=== PATIENT | female | born 1930 | race Caucasian/White ===

== ENCOUNTER 2016-11-08 16:03 | Emergency (ER) | payer OTHER ==
[~2016-11-08] VITALS: Ht 167.6 cm; Wt 72.4 kg
[~2016-11-08 16:03] MED LIST: FURO20TA PO; GLUCTAB PO; LEVO100T4 PO; METO25CR PO; ROSU40 PO; WARF5TAB PO
[2016-11-08 16:05] VITALS: BP 131/61; PULSE 66; RESP 16; TEMP 98.9; O2SAT 97
--- NOTE | 2016-11-08 16:35 | PD ---
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 There was one point where she bent over and she noticed that she had some maroon-colored blood on it had. She's not sure if it's coming from her vagina or her urine. In the past she has had problems with vaginal bleeding and required a D&C and she was told she had a fibroid in her uterus. She is on Coumadin for history of atrial fibrillation. 2 weeks ago she was told her INR was 3.1. She went to her primary care physician earlier this week in the setting of these symptoms. They had resolved at that point. She was told that if they recurred she should come to the emergency department immediately. PFSH Past Medical History Hx Anticoagulant Therapy: Yes (WARFARIN) Atrial Fibrillation: Yes Cancer: Yes (CLL) Cardiovascular Problems: Yes (HTN, CHOL) Diabetes: Yes (TYPE 2 ) Diminished Hearing: No Thyroid Disease: Yes ?: Not Menopausal: Yes Past Surgical History Appendectomy: Yes Gynecologic Surgery: Yes (D AND C) Family History Family Hypercholesterolemia: Yes Social History Alcohol Use: No Tobacco Use: No Allergies-Medications (Allergen,Severity, Reaction): Coded Allergies: Penicillin (Verified Adverse Reaction, Mild, 11/08/16) "YEAST INFECTION" Reported Meds & Prescriptions Reported Meds & Active Scripts Active Macrobid (Nitrofurantoin Monoh/Nitrofur Macro) 100 Mg Cap 100 Mg PO BID 7 Days Reported Metoprolol Tartrate 25 Mg Tab 25 Mg PO DAILY Losartan (Losartan Potassium) 50 Mg Tab 50 Mg PO DAILY Levothyroxine (Levothyroxine Sodium) 75 Mcg Tab 75 Mcg PO DAILY Furosemide 20 Mg Tab 20 Mg PO DAILY PRN Integra F 125-1 mg (Ferrous Fumarate-Iron Polysacc) 1 Cap Cap 1 Cap PO DAILY Jantoven (Warfarin) 7.5 Mg Tab 7.5 Mg PO DIRECTED Jantoven (Warfarin) 1 Mg Tab 5 Mg PO DIRECTED Metformin (Metformin HCl) 500 Mg Tab 500 Mg PO BIDPC With meals Review of Systems Except as stated in HPI: all other systems reviewed are Neg Physical Exam Narrative GENERAL:Well appearing, no acute distress SKIN: Warm and dry. HEAD: Atraumatic. Normocephalic. EYES: Pupils equal and round. No injection or drainage. ENT: Moist mucous membranes NECK: Trachea midline. CARDIOVASCULAR: Regular rate and rhythm. No murmur appreciated. RESPIRATORY: Clear to auscultation. Breath sounds equal bilaterally. GASTROINTESTINAL: Abdomen soft, non-tender, nondistended. MUSCULOSKELETAL: No obvious deformities. NEUROLOGICAL: Awake and alert. No obvious cranial nerve deficits. Moving all extremities. PSYCHIATRIC: Appropriate mood and affect; insight and judgment normal. Data Data Last Documented VS Vital Signs Date Time Temp Pulse Resp B/P Pulse Ox O2 Delivery O2 Flow Rate FiO2 11/08/16 20:04 60 16 126/62 93 11/08/16 16:05 98.9 Orders Complete Blood Count With Diff (11/08/16 16:23) Prothrombin Time / Inr (Pt) (11/08/16 16:23) Act Partial Throm Time (Ptt) (11/08/16 16:23) Basic Metabolic Panel (Bmp) (11/08/16 16:23) Urinalysis - C+S If Indicated (11/08/16 17:44) Hepatic Functional Panel (11/08/16 18:04) Haptoglobin (11/08/16 18:04) Direct Bilirubin (11/08/16 18:04) Ldh Serum (11/08/16 18:04) Urine Culture (11/08/16 17:55) Labs Laboratory Tests Test 11/08/16 11/08/16 11/08/16 16:50 17:55 19:20 White Blood Count 208.4 TH/MM3 Red Blood Count 3.64 MIL/MM3 Hemoglobin 9.7 GM/DL Hematocrit 31.0 % Mean Corpuscular Volume 85.2 FL Mean Corpuscular Hemoglobin 26.6 PG Mean Corpuscular Hemoglobin 31.3 % Concent Red Cell Distribution Width 18.8 % Platelet Count 161 TH/MM3 Mean Platelet Volume 6.9 FL Neutrophils (%) (Auto) % Lymphocytes (%) (Auto) % Monocytes (%) (Auto) % Eosinophils (%) (Auto) % Basophils (%) (Auto) % Neutrophils # (Auto) TH/MM3 Lymphocytes # (Auto) TH/MM3 Monocytes # (Auto) TH/MM3 Eosinophils # (Auto) TH/MM3 Basophils # (Auto) TH/MM3 CBC Comment AUTO DIFF Differential Total Cells 200 Counted Neutrophils % (Manual) 3 % Lymphocytes % 70 % Monocytes % 2 % Neutrophils # (Manual) 16.7 TH/MM3 Promyelocytes 5 % Differential Comment FINAL DIFF MANUAL Blastocytes 21 % Smudge Cells PRESENT Platelet Estimate NORMAL Platelet Morphology Comment NORMAL Ovalocytes 1+ [place] Cells 1+ Rouleau PRESENT Keratocytes OCC Prothrombin Time 18.6 SEC Prothromb Time International 1.6 RATIO Ratio Activated Partial 32.7 SEC Thromboplast Time Sodium Level 142 MEQ/L Potassium Level 3.8 MEQ/L Chloride Level 105 MEQ/L Carbon Dioxide Level 29.9 MEQ/L Anion Gap 7 MEQ/L Blood Urea Nitrogen 33 MG/DL Creatinine 1.50 MG/DL Estimat Glomerular Filtration 33 ML/MIN Rate Random Glucose 101 MG/DL Calcium Level 8.4 MG/DL Total Bilirubin 0.9 MG/DL Direct Bilirubin 0.2 MG/DL Indirect Bilirubin 0.7 MG/DL Aspartate Amino Transf 24 U/L (AST/SGOT) Alanine Aminotransferase 21 U/L (ALT/SGPT) Alkaline Phosphatase 132 U/L Lactate Dehydrogenase 363 U/L Total Protein 6.9 GM/DL Albumin 3.7 GM/DL Urine Collection Type CLEAN CATCH Urine Color RED Urine Turbidity MARKED Urine pH 5.0 Urine Specific [place] 1.018 Urine Protein 300 OR GREATER mg/dL Urine Glucose (UA) NEG mg/dL Urine Ketones TRACE mg/dL Urine Occult Blood LARGE Urine Nitrite POS Urine Bilirubin NEG Urine Leukocyte Esterase TRACE Urine RBC INNUM /hpf Urine WBC 3-5 /hpf Urine Squamous Epithelial 0-5 /hpf Cells Urine Amorphous Sediment LARGE Microscopic Urinalysis Comment CULTURE INDICATED Urine Collection Time 1755 Haptoglobin 137 MG/DL [facility] Medical Decision Making Medical Screen Exam Complete: Yes Emergency Medical Condition: Yes Interpretation(s) vital signs reassuring wbc 208 hbg 9.7 platelets 161 21% blasts creatinine 1.5 no hemolysis Differential Diagnosis Supratherapeutic INR, hemolysis, anemia Narrative Course This is an 86 year old female who presents to the emergency department with hematuria. She has a history of CLL and is on coumadin for atrial fibrillation. The patient has gross hematuria. I did perform a pelvic exam because she was concerned she was having vaginal bleeding which was unremarkable. Labs were obtained and the patient has a wbc count of 208 with 21 blasts in her differential. I spoke to Dr. Garcia who was watermelon inspector for hematology. He felt like the blasts in her differential were likely mistakenly identified, and he thought as long as the patient had no evidence of hemolysis that this was likely unrelated to her hematologic malignancy. Pt's INR was 1.6. Her hemoglobin is 9.7 but she has no baseline. She is asymptomatic aside from her hematuria. I recommended that she follow up with urology (I spoke with Dr. Rodriguez) within the week, and that she hold coumadin and switch to baby Aspirin until she sees them and her hematuria subsides. I also recommended she be rechecked on Wednesday by her primary care physician and have a repeat CBC. I did prescribe her a course of antibiotics given the nitrites and leukocyte esterase in her urine. Diagnosis Primary Impression: Hematuria Referrals: Ofelia King MD, Bennett P. MD Patient Instructions: General Instructions Additional Instructions: If you develop lightheadedness, dizziness, shortness of breath or chest pain return to the emergency department. Discontinue coumadin for now and take one baby aspirin daily to prevent stroke. Follow up with urology (Dr. Rodriguez) in clinic. Call to make an appointment this week. Follow up with Dr. Zhu and have your hemoglobin rechecked on Wednesday to check for worsening anemia. Complete your course of antibiotics as prescribed. Med/Other Pt SpecificInfo: Prescription(s) given Scripts Nitrofurantoin Monohydrate Macrocrystals (Macrobid)100 Mg [id number] Mg PO BID 7 Days Prov:Myesha Lewis MD 11/08/16 Disposition: DISCHARGE HOME Condition: Stable Myesha Lewis MD Nov 08, 2016 16:35
[2016-11-08] MEDS ORDERED: FERRCAP6 PO (16:39)
[2016-11-08] MEDS ORDERED: METF500T PO (16:39)
[2016-11-08] MEDS ORDERED: COUM5TAB PO (16:39)
[2016-11-08] MEDS ORDERED: FURO20TA PO (16:39)
[2016-11-08] MEDS ORDERED: LOSA50TA PO (16:39)
[2016-11-08] MEDS ORDERED: METO25TA3 PO (16:39)
[2016-11-08] MEDS ORDERED: JANT1TAB PO (16:39)
[2016-11-08] MEDS ORDERED: JANT7.5T PO (16:39)
[2016-11-08] MEDS ORDERED: LEVO75TA3 PO (16:39)
[2016-11-08 17:00] LABS: MEAN CELL VOLUME 85.2 FL (80.0-100.0); MEAN CORPUSCULAR HEMOGLOBIN 26.6 PG (27.0-34.0); MEAN CORPUSCULAR HGB CONC 31.3 % (32.0-36.0); PLATELET COUNT 161 TH/MM3 (150-450); RED BLOOD COUNT 3.64 MIL/MM3 (4.00-5.30); RED CELL DISTRIBUTION WIDTH 18.8 % (11.6-17.2)
[2016-11-08 17:13] LABS: POTASSIUM 3.8 MEQ/L (3.5-5.1)
[2016-11-08 17:16] LABS: BICARBONATE 29.9 MEQ/L (21.0-32.0)
[2016-11-08 17:17] LABS: APTT (PATIENT) 32.7 SEC (24.3-30.1); INTERNATIONAL NORMALIZED RATIO 1.6 RATIO; PROTHROMBIN TIME - PATIENT 18.6 SEC (9.8-11.6)
[2016-11-08 17:30] VITALS: BP 128/62; PULSE 66; RESP 17; O2SAT 97
[2016-11-08 17:40] LABS: HEMO FLAGS AUTO DIFF; WHITE BLOOD COUNT 208.4 TH/MM3 (4.0-11.0)
[2016-11-08 17:58] LABS: NEUTROPHIL # MANUAL DIFF 16.7 TH/MM3 (1.8-7.7); POLYS (SEG NEUTROPHILS) 3 % (16-70); PROMYELOCYTES 5 % (0-0); WBC DIFF SAMPLE 200
[2016-11-08 17:59] LABS: BURR CELLS 1+ (NORMAL); KERATOCYTES OCC (NORMAL); OVALOCYTES 1+ (NORMAL); ROULEAUX PRESENT (NORMAL)
[2016-11-08 18:00] LABS: PLATELET ESTIMATE SMEAR NORMAL (NORMAL); PLATELET MORPHOLOGY NORMAL (NORMAL); SCAN/DIFF FINAL DIFF MANUAL; SMUDGE CELLS PRESENT PRESENT
[2016-11-08 18:28] LABS: BLOOD, URINE LARGE (NEG); GLUCOSE,URINE NEG (NEG); KETONE, URINE TRACE mg/dL (NEG)
[2016-11-08 18:33] LABS: METHOD OF COLLECTION CLEAN CATCH; NITRITE,URINE POS (NEG); URINE COLOR RED (YELLW/STRAW)
[2016-11-08 18:35] LABS: CULTURE IF INDICATED CULTURE INDICATED; RBC, URINE INNUM /hpf (0-3)
[2016-11-08 18:36] LABS: COMMENT (UR) CULTURE INDICATED; SQUAMOUS EPITHELIAL CELL URINE 0-5 /hpf (0-5)
[2016-11-08 18:40] LABS: INDIRECT BILIRUBIN 0.7 MG/DL (0.0-0.8); TOTAL BILIRUBIN ADULT 0.9 MG/DL (0.2-1.0)
[2016-11-08] MEDS ORDERED: MACR100C2 PO (19:33)
[2016-11-08 20:04] VITALS: BP 126/62
[2016-11-09 11:11] LABS: BLASTS 0 % (0-0)
== END 2016-11-08 20:06 | disposition home or self-care (01) ==
LOC: PHED 16:03
DX: R31.9 Hematuria, unspecified (principal); I48.91 Unspecified atrial fibrillation; Z79.01 Long term (current) use of anticoagulants; I10 Essential (primary) hypertension; E11.9 Type 2 diabetes mellitus without complications; E07.9 Disorder of thyroid, unspecified
CPT/HCPCS: 80048; 80076; 81001; 83010; 83615; 85007; 85027; 85610; 85730; 87086; 99283

== ENCOUNTER 2016-12-22 10:12 | Inpatient (IN) | payer OTHER, MEDICARE ==
[~2016-12-22] VITALS: Ht 168.9 cm; Wt 74.8 kg
[~2016-12-22 10:12] MED LIST changes: +FERRCAP6 PO; -GLUCTAB PO; +JANT1TAB PO; +JANT7.5T PO; -LEVO100T4 PO; +LEVO75TA3 PO; +LOSA50TA PO; +MACR100C2 PO; +METF500T PO; -METO25CR PO; +METO25TA3 PO; -ROSU40 PO; -WARF5TAB PO
[2016-12-22 11:26] VITALS: BP 108/54; PULSE 69; RESP 16; TEMP 98; O2SAT 91
[2016-12-22] MEDS ORDERED: SODIUM CHLOR 0.9% 1000 ML INJ 1,000 ML IV SCH (12:15)
[2016-12-22] MEDS ORDERED: GLUCAGON 1 MG/ML VIAL OTHER PRN (12:15)
[2016-12-22] MEDS ORDERED: DEXTROSE 50% IN WATER 50 ML VIAL(D50) IV PUSH PRN (12:15)
[2016-12-22 12:38] LABS: HEMATOCRIT 26.7 % (35.0-46.0); MEAN CELL VOLUME 82.8 FL (80.0-100.0); MEAN CORPUSCULAR HEMOGLOBIN 26.1 PG (27.0-34.0); MEAN CORPUSCULAR HGB CONC 31.6 % (32.0-36.0); PLATELET COUNT 76 TH/MM3 (150-450); RED BLOOD COUNT 3.22 MIL/MM3 (4.00-5.30); RED CELL DISTRIBUTION WIDTH 19.2 % (11.6-17.2); WHITE BLOOD COUNT 32.9 TH/MM3 (4.0-11.0)
[2016-12-22 12:44] LABS: INTERNATIONAL NORMALIZED RATIO 1.2 RATIO; PROTHROMBIN TIME - PATIENT 13.9 SEC (9.8-11.6)
[2016-12-22 12:55] LABS: ALT (GPT) 48 U/L (10-53); ANION GAP 11 MEQ/L (5-15); AST (GOT) 76 U/L (15-37); BICARBONATE 20.3 MEQ/L (21.0-32.0); BLOOD UREA NITROGEN 39 MG/DL (7-18); CHLORIDE 104 MEQ/L (98-107); GLOMERULAR FILTRATION RATE 23 ML/MIN (>89); POTASSIUM 4.4 MEQ/L (3.5-5.1); SODIUM (NA) 135 MEQ/L (136-145); URIC ACID 11.2 MG/DL (2.6-6.0)
[2016-12-22] MEDS ORDERED: ALLO100T PO (12:56)
[2016-12-22] MEDS ORDERED: ROSU10 PO (12:56)
[2016-12-22 12:58] LABS: REVIEW FLAG FINAL
[2016-12-22 13:05] LABS: ALKALINE PHOSPHATASE 118 U/L (45-117)
--- NOTE | 2016-12-22 13:14 | MH ---
cc: FRANKY DIAZ MD DATE OF ADMISSION: 12/22/2016 PRIMARY CARE PHYSICIAN The patient was admitted directly from Dr. King' office for evaluation of hypertension and hypoxemia. HISTORY OF PRESENTING ILLNESS This is a very pleasant 86-year-old, female with prior history of diabetes, hypertension, atrial fibrillation who has longstanding history of CLL that was diagnosed sometime in the . She had a slow progression up until approximately 2014 when she developed progressive fatigue and cytopenias and was started on Leukeran. She took it for some time and that was stopped. A couple months ago she developed progressive weakness, tiredness, fatigability and had to worsening leukocytosis. Bone marrow biopsy was done. The patient was found to be in accelerated phase of CLL. She was started on chemotherapy by Dr. King and received her first dose yesterday of an agent named obinutuzumab. She apparently developed some chest tightness, hot flashes and weakness yesterday that was treated in the office. She was recommended to come back for followup for the next dose today. This morning the patient woke up. She was not feeling good. She was feeling weak, lightheaded and dizzy especially upon standing and walking. She was somewhat wobbly. She was nauseous but denies vomiting. She denies abdominal pain. Her appetite was poor. She did not have a good breakfast this morning. She went to Dr. King' office where she was found to be slightly hypertensive and hypoxemic. Her O2 sat was 89% on 2 liters oxygen. She appeared sickly-looking. Dr. King recommended hospitalization and further evaluation as she was concerned that the patient might be developing toxicity from chemotherapy. The patient denies any cough or sputum production but admits to having right-sided lower rib/chest pain that she only experiences upon taking deep breaths. She denies dyspnea, orthopnea, or paroxysmal nocturnal dyspnea. Denies hematemesis, denies melena. Denies dysuria. She has mild chronic ankle swelling. PAST MEDICAL HISTORY 1. History of hypertension. 2. Diabetes type 2. 3. Hyperlipidemia. 4. Chronic atrial fibrillation. 5. History of chronic kidney disease. 6. Chronic lymphocytic leukemia which has recently progressed into accelerated phase. 7. Hypothyroidism. 8. Macular degeneration. 9. History of microscopic hematuria. PAST SURGICAL HISTORY 1. Significant for appendectomy. 2. Colonoscopy. 3. D&C about 2 or 3 years ago. 4. Bone marrow biopsy recently. ALLERGIES She reports ALLERGY TO PENICILLIN. SOCIAL HISTORY She used to smoke in the past year. She is about a half [id number] smoker for 30. She quit smoking with 30-35 years ago. She denies drinking or drug abuse. She is a who lives at home. 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 HOME MEDICATIONS 1. Losartan 50 mg daily. 2. Coumadin 5 mg, alternating with 7.5. 3. Metoprolol 25 mg b.i.d. 4. Metformin 500 mg b.i.d. 5. Ferrous fumarate one capsule daily. 6. Lasix 20 mg daily. 7. Levothyroxine 75 mcg daily. 8. Nitrofurantoin was given recently for UTI. FAMILY HISTORY Both parents are . Mom at the age of 39. She has hypertensive heart disease. Dad when he was 84 years old. He was a smoker and of lung cancer. REVIEW OF SYSTEMS The patient denies headache, loss of vision but she felt dizzy and wobbly especially upon standing and walking this morning. She denies loss of vision, double vision. Denies change in hearing. Denies nasal congestion, rhinorrhea or lacrimation. She denies cough or sputum production. She felt cold this morning. Denies change in bowel pattern, melena or bright red blood per rectum. She had a few episodes of gross hematuria recently, about 3-4 weeks ago. She was supposed to see a urologist. Her hematuria is somewhat better at this time. Denies vaginal discharges. Denies rectal bleeding. Otherwise review of systems is negative for 12-systems. PHYSICAL EXAMINATION GENERAL: An elderly female sitting in chair. She appears younger than her stated age. She is awake, alert. She is oriented x 3. VITAL SIGNS: Upon arrival here to the floor blood pressure was 108/54, pulse of 69, respiratory rate 16, temperature 98.0. O2 sat was 91% on room air. HEAD EXAMINATION: Normocephalic, atraumatic. EYE EXAMINATION: Extraocular muscles intact. Pupils are round and reactive. No icterus. The patient has mild pallor. ENT: No throat congestion. No oral ulcers. No thrush. Ears clear. NECK: Supple. No JVD. CARDIOVASCULAR: S1 and S2 audible. Regular-appearing rhythm. No gallop or rub. RESPIRATORY SYSTEM: The patient has mild, faint crackles at the right base. No rhonchi. She is still unable to take deep breaths due to pain on the right sided ribs. No visible rash, no depression, no point tenderness. GI: Abdomen is soft, nontender. Positive bowel sounds. No hepatosplenomegaly. EXTREMITIES: She has bilateral mild ankle edema. Both feet are warm to touch. Jesus's sign is negative. LABORATORY DATA: The last labs are from November 08, 2016, where her white count is 208.4, hemoglobin 9.7, hematocrit 31.0, platelet count was 161. She has 3% neutrophils, 97% lymphocytes. Last BMP was also from November 08, 2016 - as follows: Sodium 140, potassium 3.8, chloride 95, bicarb 29.9, BUN of 30, creatinine 1.50, glucose 101. Calcium was 8.4, GFR of 33. Her LFTs on that day were as follows: ALP 132, AST 24, ALT 21, total protein 61, albumin 3.7, LDH was 363. ASSESSMENT 1. Weakness, hypotension, hypoxemia, right-sided pleuritic chest pain in an elderly lady who has a diagnosis of accelerated CLL status post first dose chemotherapy, concern about possible development of tumor lysis syndrome. Rule out superimposed infection, especially pneumonia resulting in left rib pain and hypertension, rule out was of chemo-toxicity with anorexia, weakness and dehydration. The pain is clearly pleuritic and unrelated with cardiac origin. 2. Chronic atrial fibrillation which seems to be in control. 3. Chronic anticoagulation. 4. Diabetes type 2. 5. Hor hypertension, currently low blood pressure. 6. Chronic kidney disease Stage III. 7. History of recent to gross hematuria. 8. Progressive CLL. PLAN 1. The patient is admitted to the hospital, currently on observation status. We will order a STAT CBC, CMP. We will check uric acid level and phosphorus level along with calcium level. We will check lactic acid level. We will check EKG and troponin. We will obtain chest x-ray, PA and lateral. We will put her on a diabetic diet, give her normal saline at 100 cc/hour. We will also check lactic acid level as the patient could develop lactic acidosis due to metformin usage with underlying chronic kidney disease. 2. Hold metformin at this time. 3. Insulin q.a.c. and q.h.s. sliding scale coverage. 4. Put her on Pepcid for GI protection. 5. This patient had evidence of for infection. We will start her on broad-spectrum antibiotic. She has evidence of tumor lysis syndrome. We will try to alkalinize her urine, use allopurinol. 6. We will consult her oncologist, Dr. King, and we will see whether the patient needs additional treatment for her tumor lysis syndrome if she has evidence of it especially with use of Rasburicase will be discussed. 7. We will monitor renal function. 8. We will monitor blood pressure. I have discussed the findings with the patient and her brother who is present at the bedside. I have answered all of their questions. Further management of this patient will depend on the hospital. MD AYSE Bauer/MELISSA /12:15 PM /12:34 PM
[2016-12-22] MEDS ORDERED: ALLOPURINOL 300 MG TAB PO ONE (14:15)
[2016-12-22] MEDS ORDERED: PILL SPLITTER OTHER PRN (14:30)
--- NOTE | 2016-12-22 14:57 | RADRPT ---
EXAM DATE/TIME: 12/22/2016 14:31 [facility] COMPARISON: No previous studies available for comparison. INDICATIONS : Pain in right side of chest MEDICAL HISTORY : Cancer lymphoma SURGICAL HISTORY : None. ENCOUNTER: Initial ACUITY: 2 days PAIN SCORE: 2/10 LOCATION: Right chest FINDINGS: The heart is normal in size. There are diffuse chronic interstitial changes within the pulmonary pare nchyma. There is moderate scarring in the costophrenic sulcus on the right. A the visualized bony str uctures are intact. CONCLUSION: Chronic interstitial changes. No definite acute abnormality identified. No pneumothorax evident. Ken Banks MD on December 22, 2016 at 14:48 Board Certified Radiologist. This report was verified electronically.
[2016-12-22] MEDS: SODIUM BICARBONATE 8.4% INJ 50 MEQ in SODIUM CHLOR 0.45% 1000 ML INJ 1,000 ML IV SCH (15:40)
[2016-12-22 16:00] VITALS: BP 116/55; PULSE 64; RESP 16; TEMP 98.9; O2SAT 97
[2016-12-22] MEDS: ENOXAPARIN SODIUM 30 MG/0.3 ML SYRINGE SQ SCH (17:00)
[2016-12-22] MEDS: INSULIN ASPART SUPPLEMENTAL SCALE SQ SCH ×2 (17:03→22:08)
[2016-12-22] MEDS: RESP: ALBUTEROL 2.5 MG/IPRATROPIUM 0.5 MG NEB (SCH) NEB ×2 (18:05→21:49)
[2016-12-22 21:00] VITALS: BP 102/52; PULSE 67; RESP 16; TEMP 101.1; O2SAT 94
[2016-12-22] MEDS: FAMOTIDINE 20 MG TAB PO SCH (21:27)
[2016-12-22] MEDS ORDERED: ACETAMINOPHEN 325 MG TAB PO PRN (21:30)
[2016-12-22 21:51] VITALS: O2SAT 92
--- NOTE | 2016-12-22 22:00 | RADRPT ---
EXAM DATE/TIME: 12/22/2016 21:35 [facility] COMPARISON: CHEST PA & LAT, December 22, 2016, 14:31. INDICATIONS : Fever for the past day. MEDICAL HISTORY : Cancer lymphoma. SURGICAL HISTORY : None. ENCOUNTER: Initial ACUITY: 1 day PAIN SCORE: 0/10 LOCATION: Bilateral chest FINDINGS: Mild left lung base atelectasis and/or infiltrate is seen. Heart and mediastinum are unremarkable for technique. CONCLUSION: Mild left lung base atelectasis and/or infiltrate is seen. Quyen Hernandez MD on December 22, 2016 at 21:55 Board Certified Radiologist. This report was verified electronically.
--- NOTE | 2016-12-22 22:43 | MB ---
cc: FRANKY TORRES RUBY ANNE E. M.D. DATE OF CONSULTATION: 12/22/[address] Franky Torres DATE OF : [address] Torres requested consultation for Mrs. Chavez regarding CLL and acute tumor lysis syndrome post obinutuzumab. HISTORY OF PRESENT ILLNESS Ms. Chavez is an 86 year-old woman initially diagnosed with CLL in 1989. She had chronic disease for a long time. Due to fatigue symptoms, she was ultimately started on Leukeran as initial therapy, approximately two years ago. Due to cytopenias and toxicities to the leukeran, her therapy was stopped. She as followed conservatively by Dr. Chawla. She transferred her care to [facility] and she was seen initially on November 11, 2016. We discussed findings of increasing white blood cell count over the last six months. It has more than doubled. The coordinated bone marrow biopsy evaluation to see if there is change in her disease. Bone marrow was coordinated on 11/20/2016. The findings show increased cellularity, features of low grade B-cell lymphoproliferative disorder consistent with chronic lymphocytic leukemia. The marrow revealed infiltration of the small intermediate size lymphocytes. This is decreased residual hematopoiesis. She was developing cytopenias mainly anemia and thrombocytopenia. Ultimately we decided to proceed with treatment. We discussed the risk and benefits of obinutuzumab and Leukeran. She received her initial test dose of obinutuzumab 100 milligrams the day prior to admission. Her last labs prior to treatment were from November 08, 2016. Her white blood cell count was 208,000, hemoglobin 9.7, platelet count 161,000. Her labs were performed with the reference labs and the results were not available during the consultation. She tolerated the first dose of obinutuzumab well. We had to interrupt therapy once due to nausea, GI upset, feeling unwell. She had some mild infusion type reaction but all-in-all she tolerated the first 100 milligram dose well. She went home well and was able to hydrate herself. She, however, woke up in the morning, felt woozy and dizzy. She presented to the clinic for day 2 of obinutuzumab, however, she was hypotensive and hypoxic. She describes some shortness of breath. She denies any fever, chills or night sweats. She was feeling unwell. She had some mild nausea. She did not take her blood pressure medicines despite she was hypotensive. She was given a bolus of fluid and did not respond. Her O2 saturation was 89% on room air and her systolic blood pressure was less than 90 despite 250 mL bolus of normal saline. With that, her admission to the hospital was coordinated. LABORATORY DATA: Review of her labs shows a significant response to the 100 mg dose of obinutuzumab. Her white blood cell count was suspected at being greater than 200,000, came down to 32,000. Her hemoglobin is decreased, platelet count was decreased to 76,000. Her baseline creatinine was elevated. She has mild renal insufficiency with infiltration rate in the 30% range, however, her creatinine increased. She was mildly hyponatremic with uric acid, elevated level 11.2, calcium is decreased at 7.8, phosphorus was increased at 5.1, AST mildly elevated at 76, ALT 48, and alkaline phosphatase was normal. The above findings were consistent with tumor lysis syndrome. She is admitted for support. Hematology/Oncology is consulted for her CLL and chemo related toxicity. PAST MEDICAL HISTORY 1. Chronic anemia. 2. Arthritis. 3. Atrial fibrillation. 4. Diabetes type 2. 5. Hypercholesterolemia. 6. Hypertension. 7. Hypothyroidism. 8. Macular degeneration. 9. Chronic renal insufficiency. 10. Microscopic hematuria. 11. Chronic lymphocytic leukemia. PAST SURGICAL HISTORY Appendectomy Colonoscopy. FAMILY HISTORY Mother at age 40 with hypertension. Father age 86 from lung cancer. SOCIAL HISTORY She is . 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 She denies any tobacco, alcohol or illicit drug use at present. She was a previous smoker. ALLERGIES: ALLERGIES TO PENICILLIN. CURRENT MEDICATIONS 1. Allopurinol 2. Pepcid. 3. Novolog. 4. Enoxaparin. 5. Albuterol. PHYSICAL EXAMINATION VITAL SIGNS: Temperature 98.9, heart rate 64, respiratory rate 16, blood pressure 168/55, saturation 97%. Ms. Chavez is a well-developed, well-nourished elderly woman who was feeling very ill and tired. HEENT: Her pupils are reactive to light and accommodation. Oropharynx is clear. Neck: Supple. Lungs: Clear. No wheezing or rhonchi. Cardiovascular: Exam reveals a irregular rhythm with mild bradyarrhythmia. Abdomen: Benign. Extremities: Lower extremities with 2+ ankle edema, good pulses. Neurologic: Nonfocal. LABORATORY DATA Significant for BUN of 39, creatinine 1.03, sodium 135, glucose 156, calcium 7.8, uric acid 11.2. CBC: white blood cell count of 32,000, hemoglobin 8.4, platelet count 76,000. ASSESSMENT/PLAN Ms. Chavez is an 86 year-old woman with multiple medical problems described above. She has progression of disease from her chronic lymphocytic leukemia, after being off Leukeran for about 6-8 months. In light of her progressive disease and short doubling time she was started on the obinutuzumab and Leukeran. She received a test dose of obinutuzumab the day prior to her admission. She was hypotensive and hypoxic. She is suspected to have toxicity related to obinutuzumab. She is admitted to the hospital for treatment of the chemo related toxicity. We reviewed her response which was quite rapid. Her white blood cell count was over 200,000. Her bone marrow was replaced with chronic lymphocytic leukemic cells. The decrease in the white blood cell count is significant for prompt response. She is mildly anemic but no transfusion is needed at present. We will monitor her platelet count. No bleeding is seen. The chemistries are consistent with tumor lysis syndrome, the high uric acid despite being on allopurinol is concerning. She will need support. She will continue IV fluid hydration as described above. She needs a calcium supplementation for the hypocalcemia which I anticipate would resolve as soon as the renal function improves. We discussed the need for continued laboratory monitoring. Ms. Chavez understands but she has poor veins. She requests port placement. This was being coordinated on an outpatient basis. Uric acid will be monitored. We will repeat chemistries and laboratory evaluation tomorrow. LDH will be checked. Her questions were answered to her satisfaction and general surgery will be consulted for port placement. Ofelia King MD RAD/NEEMA /8:11 PM /9:36 PM [facility] CENTERMarlene
[2016-12-23] VITALS (13 sets, daily range): BP systolic 94–124; BP diastolic 50–60; PULSE 54–115; RESP 15–20; TEMP 97.3–100.9; O2SAT 93–99
[2016-12-23 00:41] LABS: BLOOD, URINE MOD (NEG); GLUCOSE,URINE NEG (NEG); KETONE, URINE NEG (NEG); MUCUS URINE FEW /lpf (OCC); NITRITE,URINE NEG (NEG); PH, URINE 5.5 (5.0-8.5); RENAL EPITHELIAL CELLS <1 /hpf; SQUAMOUS EPITHELIAL CELL URINE 1 /hpf (0-5); TRANSITIONAL EPI CELLS, URINE <1 /hpf; URINE COLOR YELLOW (YELLW/STRAW)
[2016-12-23] MEDS: RESP: ALBUTEROL 2.5 MG/IPRATROPIUM 0.5 MG NEB (SCH) NEB ×4 (05:27→21:54)
[2016-12-23] MEDS: SODIUM BICARBONATE 8.4% INJ 50 MEQ in SODIUM CHLOR 0.45% 1000 ML INJ 1,000 ML IV SCH ×2 (05:31→22:20)
[2016-12-23] MEDS: INSULIN ASPART SUPPLEMENTAL SCALE SQ SCH ×4 (06:41→22:06)
[2016-12-23 07:31] LABS: HEMATOCRIT 23.4 % (35.0-46.0); MEAN CORPUSCULAR HEMOGLOBIN 24.8 PG (27.0-34.0); MEAN CORPUSCULAR HGB CONC 31.4 % (32.0-36.0); PLATELET COUNT 51 TH/MM3 (150-450); RED BLOOD COUNT 2.96 MIL/MM3 (4.00-5.30); RED CELL DISTRIBUTION WIDTH 19.4 % (11.6-17.2); WHITE BLOOD COUNT 15.4 TH/MM3 (4.0-11.0)
[2016-12-23 07:36] LABS: APTT (PATIENT) 29.9 SEC (24.3-30.1); PROTHROMBIN TIME - PATIENT 11.4 SEC (9.8-11.6)
[2016-12-23 08:03] LABS: ALT (GPT) 35 U/L (10-53); ANION GAP 10 MEQ/L (5-15); AST (GOT) 33 U/L (15-37); BICARBONATE 25.3 MEQ/L (21.0-32.0); BLOOD UREA NITROGEN 39 MG/DL (7-18); CHLORIDE 105 MEQ/L (98-107); GLOMERULAR FILTRATION RATE 29 ML/MIN (>89); LDH SERUM 380 U/L (84-246); MAGNESIUM 2.4 MG/DL (1.5-2.5); POTASSIUM 3.8 MEQ/L (3.5-5.1); SODIUM (NA) 140 MEQ/L (136-145); URIC ACID 9.5 MG/DL (2.6-6.0)
[2016-12-23 08:05] LABS: ALKALINE PHOSPHATASE 80 U/L (45-117)
[2016-12-23 08:09] LABS: REVIEW FLAG FINAL
[2016-12-23] MEDS: FAMOTIDINE 20 MG TAB PO SCH ×2 (09:26→22:05)
[2016-12-23] MEDS: ALLOPURINOL 100 MG TAB PO SCH (09:26)
--- NOTE | 2016-12-23 10:58 | PD.ONC.PN ---
Subjective Subjective Remarks Tmax 101.1 overnight. Patient resting comfortably without complaint. She states she feels much better today. Objective Data Date Time Temp Pulse Resp B/P Pulse Ox O2 Delivery O2 Flow Rate FiO2 12/23/16 08:52 97 Nasal Cannula 2.00 12/23/16 07:50 97.5 115 20 124/58 96 12/23/16 05:00 97.3 56 16 96/50 94 12/23/16 02:45 54 12/23/16 00:00 100.9 73 16 97/55 94 12/22/16 21:51 92 Nasal Cannula 2.00 12/22/16 21:00 101.1 67 16 102/52 94 12/22/16 16:00 98.9 64 16 116/55 97 12/22/16 11:26 98.0 69 16 108/54 91 12/23/16 12/23/16 12/23/16 07:00 15:00 23:00 Intake Total 570 ml Balance 570 ml Result Diagram: 12/23/16 0655 12/23/16 0655 Laboratory Results Laboratory Tests Test 12/22/16 12/22/16 12/23/16 12:25 23:30 06:55 White Blood Count 32.9 TH/MM3 15.4 TH/MM3 Red Blood Count 3.22 MIL/MM3 2.96 MIL/MM3 Hemoglobin 8.4 GM/DL 7.3 GM/DL Hematocrit 26.7 % 23.4 % Mean Corpuscular Volume 82.8 FL 79.0 FL Mean Corpuscular Hemoglobin 26.1 PG 24.8 PG Mean Corpuscular Hemoglobin 31.6 % 31.4 % Concent Red Cell Distribution Width 19.2 % 19.4 % Platelet Count 76 TH/MM3 51 TH/MM3 Mean Platelet Volume 7.9 FL 8.8 FL Prothrombin Time 13.9 SEC 11.4 SEC Prothromb Time International 1.2 RATIO 1.0 RATIO Ratio Sodium Level 135 MEQ/L 140 MEQ/L Potassium Level 4.4 MEQ/L 3.8 MEQ/L Chloride Level 104 MEQ/L 105 MEQ/L Carbon Dioxide Level 20.3 MEQ/L 25.3 MEQ/L Anion Gap 11 MEQ/L 10 MEQ/L Blood Urea Nitrogen 39 MG/DL 39 MG/DL Creatinine 2.03 MG/DL 1.66 MG/DL Estimat Glomerular Filtration 23 ML/MIN 29 ML/MIN Rate Random Glucose 156 MG/DL 133 MG/DL Lactic Acid Level 2.4 mmol/L Uric Acid 11.2 MG/DL 9.5 MG/DL Calcium Level 7.8 MG/DL 7.7 MG/DL Phosphorus Level 5.1 MG/DL Total Bilirubin 1.0 MG/DL 1.0 MG/DL Aspartate Amino Transf 76 U/L 33 U/L (AST/SGOT) Alanine Aminotransferase 48 U/L 35 U/L (ALT/SGPT) Alkaline Phosphatase 118 U/L 80 U/L Troponin I LESS THAN 0.02 NG/ML Total Protein 6.3 GM/DL 5.3 GM/DL Albumin 3.5 GM/DL 3.1 GM/DL Thyroid Stimulating Hormone 1.400 uIU/ML 3rd Gen Urine Color YELLOW Urine Turbidity HAZY Urine pH 5.5 Urine Specific [place] 1.014 Urine Protein 30 mg/dL Urine Glucose (UA) NEG mg/dL Urine Ketones NEG mg/dL Urine Occult Blood MOD Urine Nitrite NEG Urine Bilirubin NEG Urine Urobilinogen LESS THAN 2.0 MG/DL Urine Leukocyte Esterase MOD Urine RBC 6 /hpf Urine WBC 18 /hpf Urine Squamous Epithelial 1 /hpf Cells Urine Transitional Epithelial <1 /hpf Cells Urine Renal Epithelial Cells <1 /hpf Urine Amorphous Sediment RARE Urine Mucus FEW /lpf Microscopic Urinalysis Comment Activated Partial 29.9 SEC Thromboplast Time Magnesium Level 2.4 MG/DL Lactate Dehydrogenase 380 U/L Culture Results Microbiology Date/Time Procedure Status Source Growth 12/22/16 22:15 Aerobic Blood Culture Received Blood Peripheral Pending 12/22/16 22:15 Anaerobic Blood Culture Received Blood Peripheral Pending 12/22/16 22:22 Aerobic Blood Culture Received Blood Peripheral Pending 12/22/16 22:22 Anaerobic Blood Culture Received Blood Peripheral Pending 12/22/16 23:30 Urine Culture Received Urine Clean Catch Pending Administered Medications Medications (Trade) Dose Ordered Sig/Loretta Route PRN Reason Start Time Stop Time Status Last Admin Dose Admin Sodium Bicarbonate/ Sodium Chloride (Sodium Bicarbonate 8.4% Inj/1/2 NS 1000 ml Inj) 1,050 ml @ 75 mls/hr Q14H IV 12/22/16 16:00 12/23/16 05:31 Allopurinol (Zyloprim) 150 mg DAILY PO 12/23/16 09:00 3/22/17 09:26 Enoxaparin Sodium (Lovenox Inj) 30 mg Q24H SQ 12/22/16 15:00 12/22/16 17:00 Famotidine (Pepcid) 20 mg BID PO 12/22/16 21:00 12/23/16 09:26 Acetaminophen (Tylenol) 650 mg QID PRN PO FEVER 12/22/16 21:30 12/22/16 22:09 Objective Remarks GENERAL: Elderly female, sitting up in bed in nad. SKIN: Warm and dry. HEAD: Normocephalic. EYES: No injection or drainage. NECK: Supple, trachea midline. CARDIOVASCULAR: Regular rate and rhythm RESPIRATORY: Breath sounds equal bilaterally. No accessory muscle use. GASTROINTESTINAL: Abdomen soft, non-tender, nondistended. EXTREMITIES: No cyanosis. NEUROLOGICAL: No obvious focal deficit. Awake, alert, and oriented x3. Assessment/Plan Problem List: (1) Chronic lymphocytic leukemia Status: Acute Plan: History: --initially diagnosed with CLL in 1989. --had chronic disease for a long time. --Due to fatigue symptoms, was started on Leukeran as initial therapy, approximately two years ago. --Due to cytopenias and toxicities to the leukeran, her therapy was stopped. -- transferred her care to [facility] and she was seen initially on November 11, 2016. -- 11/20/2016 bone marrow biopsy showed increased cellularity, features of low grade B-cell lymphoproliferative disorder consistent with chronic lymphocytic leukemia. The marrow revealed infiltration of the small intermediate size lymphocytes. There is decreased residual hematopoiesis. She was developing cytopenias mainly anemia and thrombocytopenia. --12/21/16: received test dose of Obintuzumab 100mg. tolerated therapy well --12/13/16: woke up and felt woozy and dizzy. presented to clinic for day 2 of Obintuzumab but was hypotensive and hypoxic. sent to hospital for admission (2) Tumor lysis syndrome following antineoplastic drug therapy Status: Acute Plan: --currently on allopurinol 150mg PO daily + NS hydration therapy --monitor uric acid, LDH, phosphorus, calcium, renal function Assessment 86y/o with CLL and acute tumor lysis syndrome post obinutuzumab. h/o Chronic anemia. Arthritis. Atrial fibrillation. Diabetes type 2. Hypercholesterolemia. Hypertension. Hypothyroidism. Macular degeneration. Chronic renal insufficiency. Microscopic hematuria. Chronic lymphocytic leukemia. Plan 1. await port placement with general surgery 2. monitor renal function, uric acid, LDH, phosphorus and calcium with TLS 3. continue hydration, allopurinol 4. give 1 unit pRBC Attending Statement The exam, history, and the medical decision-making described in the above note were completed with the assistance of the mid-level provider. I reviewed and agree with the findings presented. I attest that I had a [id number] encounter with the patient on the same day, and personally performed and documented my assessment and findings in the medical record. Noted fever. No sign of infection. Plan to check culture if febrile again, may elect to hold port placement. Renal function still abn but improving. Uric acid trending down. Pt agree to transfusion. Discussed plans for DC pending resolution TLS. Monitor electrolytes. No bleeding, no platelet transfusion. DVt prophylaxis held due to pending surgery tomorrow. Amy Durant Dec 23, 2016 10:58 Ofelia King MD Dec 23, 2016 18:03
--- NOTE | 2016-12-23 11:18 | EKG ---
Date Performed: 12/22/2016 Time Performed: 12:18:07 PTAGE: 86 years EKG: Sinus rhythm MARKED LEFT AXIS DEVIATION NONSPECIFIC T-WAVE ABNORMALITY ABNORMAL ECG NO PREVIOUS TRACING DOCTOR: Golden Sommers Interpretating Date/Time 12/23/2016 11:16:07
[2016-12-23] MEDS ORDERED: LEVOFLOXACIN 500 MG PREMIX INJ 100 ML IV ONE (12:00)
--- NOTE | 2016-12-23 12:57 | HHI.PR ---
Subjective Subjective Remarks feeling better no cp no sob eating ok no n/v fever overnight 101.1 no cough voiding okay Review of Systems Constitutional Constitutional Remarks 12 point ROS completed, negative except as noted above Vitals/Results Intake & Output 12/22/16 12/22/16 12/23/16 15:00 23:00 07:00 Intake Total 480 ml 614 ml 570 ml Balance 480 ml 614 ml 570 ml Intake Oral 480 ml 120 ml IV Total 614 ml 450 ml # Voids 1 Vital Signs Vital Signs Date Time Temp Pulse Resp B/P Pulse Ox O2 Delivery O2 Flow Rate FiO2 12/23/16 12:45 97.7 95 20 95/54 98 12/23/16 08:52 97 Nasal Cannula 2.00 12/23/16 07:50 97.5 115 20 124/58 96 12/23/16 05:00 97.3 56 16 96/50 94 12/23/16 02:45 54 12/23/16 00:00 100.9 73 16 97/55 94 12/22/16 21:51 92 Nasal Cannula 2.00 12/22/16 21:00 101.1 67 16 102/52 94 12/22/16 16:00 98.9 64 16 116/55 97 CBC/BMP: 12/23/16 0655 12/23/16 0655 Lab Results Laboratory Tests Test 12/22/16 12/23/16 23:30 06:55 Urine Color YELLOW Urine Turbidity HAZY Urine pH 5.5 Urine Specific [place] 1.014 Urine Protein 30 mg/dL Urine Glucose (UA) NEG mg/dL Urine Ketones NEG mg/dL Urine Occult Blood MOD Urine Nitrite NEG Urine Bilirubin NEG Urine Urobilinogen LESS THAN 2.0 MG/DL Urine Leukocyte Esterase MOD Urine RBC 6 /hpf Urine WBC 18 /hpf Urine Squamous Epithelial 1 /hpf Cells Urine Transitional Epithelial <1 /hpf Cells Urine Renal Epithelial Cells <1 /hpf Urine Amorphous Sediment RARE Urine Mucus FEW /lpf Microscopic Urinalysis Comment White Blood Count 15.4 TH/MM3 Red Blood Count 2.96 MIL/MM3 Hemoglobin 7.3 GM/DL Hematocrit 23.4 % Mean Corpuscular Volume 79.0 FL Mean Corpuscular Hemoglobin 24.8 PG Mean Corpuscular Hemoglobin 31.4 % Concent Red Cell Distribution Width 19.4 % Platelet Count 51 TH/MM3 Mean Platelet Volume 8.8 FL Prothrombin Time 11.4 SEC Prothromb Time International 1.0 RATIO Ratio Activated Partial 29.9 SEC Thromboplast Time Sodium Level 140 MEQ/L Potassium Level 3.8 MEQ/L Chloride Level 105 MEQ/L Carbon Dioxide Level 25.3 MEQ/L Anion Gap 10 MEQ/L Blood Urea Nitrogen 39 MG/DL Creatinine 1.66 MG/DL Estimat Glomerular Filtration 29 ML/MIN Rate Random Glucose 133 MG/DL Uric Acid 9.5 MG/DL Calcium Level 7.7 MG/DL Phosphorus Level 5.3 MG/DL Magnesium Level 2.4 MG/DL Total Bilirubin 1.0 MG/DL Aspartate Amino Transf 33 U/L (AST/SGOT) Alanine Aminotransferase 35 U/L (ALT/SGPT) Alkaline Phosphatase 80 U/L Lactate Dehydrogenase 380 U/L Total Protein 5.3 GM/DL Albumin 3.1 GM/DL Microbiology Microbiology 12/22/16 Aerobic Blood Culture - Preliminary, Resulted NO GROWTH IN 1 DAY 12/22/16 Anaerobic Blood Culture - Preliminary, Resulted NO GROWTH IN 1 DAY 12/22/16 Aerobic Blood Culture - Preliminary, Resulted NO GROWTH IN 1 DAY 12/22/16 Anaerobic Blood Culture - Preliminary, Resulted NO GROWTH IN 1 DAY 12/22/16 Urine Culture, Received Pending Physical Exam General General Appearance: Well Developed, Well Nourished, No Acute Distress, Comfortable Eyes Eye Exam: Pupils Equal, Pupils Reactive Ears & Nose Ears & Nose Exam: Nasal Mucosa [place] Throat Throat Exam: Oral Mucosa [place] & Moist Neck Neck Exam: Neck Supple, Trachea Midline Pulmonary Resp Exam: Decreased Bases Cardiology CV Exam: Irregular, Arrhythmia Gastrointestinal/Abdomen GI Exam: Soft, Non-Tender, Bowel Sounds Present, Non-Distended Musculoskeletal MS Exam: Joints Intact Integumentary Skin Exam: Warm, Dry Extremeties Extremities Exam: Pedal Pulses Palpable, Trace Edema Neurologic Neuro Exam: Alert, Awake, Oriented, Speech Clear, Moving All Extremities, No Focal Deficits Psychiatric Psych Exam: Appropriate Responses VTE Prophylaxis VTE Prophylaxis Device: SCDs PUD Prophylasis PUD Remarks Pepcid Assessment/Plan Assessment/Plan 1. Weakness, hypotension, hypoxemia, right-sided pleuritic chest pain in an elderly lady who has a diagnosis of accelerated CLL status post first dose chemotherapy, concern about possible development of tumor lysis syndrome. Rule out superimposed infection, especially pneumonia resulting in left rib pain and hypertension, rule out was of chemo-toxicity with anorexia, weakness and dehydration. The pain is clearly pleuritic and unrelated with cardiac origin. 2. Chronic atrial fibrillation which seems to be in control. 3. Chronic anticoagulation. 4. Diabetes type 2. 5. Hx hypertension, currently low blood pressure. 6. Chronic kidney disease Stage III. 7. History of recent to gross hematuria. 8. Progressive CLL. PLAN continue with IVF renal function improving avoid nephrotoxic agents UA + UTI, follow culture continue with abx anemic, HH 7.3-23.4 ? dilutional, PRBC x 1 per heme orders Plat 51 today WBC trending down, now 15.4 to have PAC placed per gen surgery appreciate heme input, continue to monitor renal fx, uric acid, LDH, phos, calcium with TLS, continue hydration and Allopurinol Continue with Insulin q.a.c. and q.h.s. sliding scale coverage. Hold Metformin BP 95-100, continue to hold antihypertensive agents continue with hydration afib, HR 100s, hold Lopressor due to low BP monitor telemetry Home meds reviewed, initiated as indicated. Pepcid for GI prophylaxis Lovenox for DVT prophylaxis Follow labs in am Continue with present tx D/W RN D/W pt D/W Dr. Torres D/W Anastacio. MATEO Durant This patient was seen by myself and Dr. Torres, this note is written on his behalf. Terri De Guzman Dec 23, 2016 12:57
[2016-12-23] MEDS ORDERED: ACETAMINOPHEN 325 MG TAB PO PRN ×2 (14:00→21:15)
[2016-12-23] MEDS ORDERED: diphenhydrAMINE HCL 25 MG CAP PO PRN ×2 (14:00→21:15)
[2016-12-23] MEDS ORDERED: SODIUM CHLOR 0.9% 250 ML INJ 250 ML IV ONE (14:00)
--- NOTE | 2016-12-23 14:22 | MB ---
cc: KEV MARKS,OMI Roper M.D. DATE OF CONSULTATION: 12/23/[address] King REASON FOR CONSULTATION [id number] placement. HISTORY OF PRESENT ILLNESS The patient is an 86-year-old female with a history of CLL, currently on chemotherapy. The patient developed a tumor lysis syndrome and required hospital admission for supportive care. The patient has difficult venous access and will require continued supportive care as an inpatient and outpatient with intravenous medications as well as frequent blood draws and an Jcyjay-Y-Qxcb is requested by the patient's oncologist. PAST MEDICAL HISTORY 1. Leukemia. 2. Atrial fibrillation, not on anticoagulation due to risk of bleeding. 3. Arthritis. 4. Diabetes. 5. Hypercholesterolemia. 6. Hypertension. 7. Hypothyroidism. 8. Macular degeneration. 9. Chronic renal insufficiency. PAST SURGICAL HISTORY Appendectomy. ALLERGIES PENICILLIN. MEDICATIONS 1. Levaquin. 2. Pepcid. 3. Allopurinol. 4. Tylenol. 5. Insulin. 6. Lovenox 30 mg. 7. Albuterol. SOCIAL HISTORY The patient is retired, , denies alcohol, tobacco or illicit drug use. PHYSICAL EXAMINATION VITAL SIGNS: Temperature 97.7 degrees, heart rate 95, blood pressure 95/54, O2 saturation 98%. GENERAL: The patient is a thin elderly female in no acute distress. She does not appear acute or chronically ill. HEENT: Head is normocephalic, atraumatic. Pupils are round and reactive to light. Sclera anicteric. Mucous membranes are moist. NECK: Supple. No JVD. LUNGS: Clear to auscultation bilaterally. Nonlabored breathing pattern. HEART: Regular rate and rhythm. No murmurs. ABDOMEN: Soft, nondistended. No organomegaly. No ascites. EXTREMITIES: No clubbing, cyanosis or edema. Peripheral pulses are intact. BACK: No CVA tenderness. NEUROLOGIC: The patient is awake, alert and appropriate, oriented x3. Nonfocal peripheral exam. Cranial II through XII are grossly intact. LABORATORY VALUES INR is 1.0. Hemoglobin 7.3, white blood cell count 15.4. ASSESSMENT AND PLAN The patient is an 86-year-old female with CLL and tumor lysis syndrome after treatment. The patient has difficult vascular access. The patient requires Eetmrb-Y-Aegz placement. I discussed the risks, benefits, alternatives to Gnitmt-S-Xylp placement with the patient in detail and all of her questions were answered to her satisfaction. She has agreed to undergo Xmbori-W-Tlvr placement. We will perform this procedure in the next 24 hours once we make the patient n.p.o. and find an appropriate time in the operating room. Thank you very much for this consultation. MD NAZANIN AscencioG/BT /1:17 PM /2:05 PM
[2016-12-23] MEDS: ENOXAPARIN SODIUM 30 MG/0.3 ML SYRINGE SQ SCH (15:00)
[2016-12-24] VITALS (11 sets, daily range): BP systolic 104–133; BP diastolic 56–70; PULSE 55–115; RESP 15–20; TEMP 96.5–98.2; O2SAT 93–100
[2016-12-24] MEDS ORDERED: INSULIN HUMAN REGULAR 1,000 UNITS/10 ML VIAL SQ PRN (05:15)
[2016-12-24] MEDS: LEVOTHYROXINE SODIUM 75 MCG TAB PO SCH (05:50)
[2016-12-24] MEDS: INSULIN ASPART SUPPLEMENTAL SCALE SQ SCH ×4 (06:06→21:00)
[2016-12-24 07:43] LABS: HEMATOCRIT 24.6 % (35.0-46.0); MEAN CELL VOLUME 79.2 FL (80.0-100.0); MEAN CORPUSCULAR HEMOGLOBIN 25.3 PG (27.0-34.0); PLATELET COUNT 54 TH/MM3 (150-450); RED BLOOD COUNT 3.11 MIL/MM3 (4.00-5.30); RED CELL DISTRIBUTION WIDTH 19.3 % (11.6-17.2); WHITE BLOOD COUNT 13.9 TH/MM3 (4.0-11.0)
[2016-12-24 07:46] LABS: HEMO FLAGS AUTO DIFF
[2016-12-24] MEDS: RESP: ALBUTEROL 2.5 MG/IPRATROPIUM 0.5 MG NEB (SCH) NEB ×3 (08:11→21:06)
[2016-12-24 08:16] LABS: BICARBONATE 28.7 MEQ/L (21.0-32.0); CALCIUM-PROTEIN CORRECTED 9.5 MG/DL (8.5-10.1); POTASSIUM 4.5 MEQ/L (3.5-5.1); TOTAL BILIRUBIN ADULT 1.2 MG/DL (0.2-1.0); URIC ACID 6.9 MG/DL (2.6-6.0)
[2016-12-24 08:26] LABS: EOSINOPHILS 1 % (0-4); NEUTROPHIL # MANUAL DIFF 2.4 TH/MM3 (1.8-7.7); POLYS (SEG NEUTROPHILS) 17 % (16-70); WBC DIFF SAMPLE 100
[2016-12-24 08:28] LABS: KERATOCYTES OCC (NORMAL); OVALOCYTES 1+ (NORMAL); PLATELET ESTIMATE SMEAR LOW (NORMAL); PLATELET MORPHOLOGY NORMAL (NORMAL); SCAN/DIFF FINAL DIFF MANUAL
--- NOTE | 2016-12-24 09:58 | HHI.PR ---
Subjective Interval History feeling better Patient is feeling better Offering no complaint no cp no sob Better appetite no n/v No fever or chills no cough voiding okay No BM yet Review of Systems 12 point ROS completed, negative except as noted above Vitals/Results Intake & Output 12/23/16 12/23/16 12/24/16 15:00 23:00 07:00 Intake Total 240 ml 1960 ml Output Total 600 ml 1200 ml Balance -360 ml 760 ml Intake Oral 240 ml IV Total 1700 ml Packed Cells 260 ml Output Urine Total 600 ml 1200 ml Vital Signs Vital Signs Date Time Temp Pulse Resp B/P Pulse Ox O2 Delivery O2 Flow Rate FiO2 12/24/16 07:50 97.2 85 20 118/66 100 12/24/16 02:35 96.5 77 16 104/57 94 12/24/16 01:00 97.6 93 15 112/70 93 12/24/16 00:15 97.8 108 16 114/66 94 12/24/16 00:00 97.0 95 16 127/67 95 12/23/16 23:32 97.5 106 15 121/53 93 12/23/16 21:55 99 Nasal Cannula 21 12/23/16 21:05 92 12/23/16 20:00 97.6 91 18 94/60 94 12/23/16 15:50 97.5 113 20 109/57 95 12/23/16 15:12 99 21 12/23/16 11:50 97.7 95 20 95/54 98 CBC/BMP: 12/24/16 0705 12/24/16 0705 Lab Results Laboratory Tests Test 12/23/16 12/23/16 12/24/16 14:55 16:03 07:05 Blood Type A POSITIVE A POSITIVE Antibody Screen NEGATIVE Crossmatch Leukocyte-Reduced Red Blood Cells Blood Bank Comment White Blood Count 13.9 TH/MM3 Red Blood Count 3.11 MIL/MM3 Hemoglobin 7.9 GM/DL Hematocrit 24.6 % Mean Corpuscular Volume 79.2 FL Mean Corpuscular Hemoglobin 25.3 PG Mean Corpuscular Hemoglobin 32.0 % Concent Red Cell Distribution Width 19.3 % Platelet Count 54 TH/MM3 Mean Platelet Volume 8.8 FL Neutrophils (%) (Auto) % Lymphocytes (%) (Auto) % Monocytes (%) (Auto) % Eosinophils (%) (Auto) % Basophils (%) (Auto) % Neutrophils # (Auto) TH/MM3 Lymphocytes # (Auto) TH/MM3 Monocytes # (Auto) TH/MM3 Eosinophils # (Auto) TH/MM3 Basophils # (Auto) TH/MM3 CBC Comment AUTO DIFF Differential Total Cells 100 Counted Neutrophils % (Manual) 17 % Lymphocytes % 78 % Monocytes % 4 % Eosinophils % 1 % Neutrophils # (Manual) 2.4 TH/MM3 Differential Comment FINAL DIFF MANUAL Platelet Estimate LOW Platelet Morphology Comment NORMAL Ovalocytes 1+ Keratocytes OCC Sodium Level 141 MEQ/L Potassium Level 4.5 MEQ/L Chloride Level 106 MEQ/L Carbon Dioxide Level 28.7 MEQ/L Anion Gap 6 MEQ/L Blood Urea Nitrogen 29 MG/DL Creatinine 1.30 MG/DL Estimat Glomerular Filtration 39 ML/MIN Rate Random Glucose 133 MG/DL Uric Acid 6.9 MG/DL Calcium Level 8.3 MG/DL Protein Corrected Calcium 9.5 MG/DL Phosphorus Level 4.0 MG/DL Total Bilirubin 1.2 MG/DL Direct Bilirubin 0.2 MG/DL Indirect Bilirubin 1.0 MG/DL Aspartate Amino Transf 16 U/L (AST/SGOT) Alanine Aminotransferase 26 U/L (ALT/SGPT) Alkaline Phosphatase 73 U/L Lactate Dehydrogenase 246 U/L Total Protein 5.2 GM/DL Albumin 2.7 GM/DL Physical Exam General General Appearance: Well Developed, Well Nourished, No Acute Distress, Comfortable Eyes Eye Exam: Pupils Equal, Pupils Reactive Ears & Nose Ears & Nose Exam: Nasal Mucosa [place] Throat Throat Exam: Oral Mucosa [place] & Moist Neck Neck Exam: Neck Supple, Trachea Midline Pulmonary Resp Exam: Decreased Bases Cardiology CV Exam: Irregular, Arrhythmia CV Remarks Normal rate Gastrointestinal/Abdomen GI Exam: Soft, Non-Tender, Bowel Sounds Present, Non-Distended Musculoskeletal MS Exam: Joints Intact Integumentary Skin Exam: Warm, Dry Extremeties Extremities Exam: Pedal Pulses Palpable, Trace Edema Neurologic Neuro Exam: Alert, Awake, Oriented, Speech Clear, Moving All Extremities, No Focal Deficits Psychiatric Psych Exam: Appropriate Responses VTE Prophylaxis VTE Prophylaxis Device: SCDs Assessment/Plan Assessment/Plan 1. Weakness, hypotension, hypoxemia, right-sided pleuritic chest pain in an elderly lady who has a diagnosis of accelerated CLL status post first dose chemotherapy, concern about possible development of tumor lysis syndrome. Rule out superimposed infection, especially pneumonia resulting in left rib pain and hypertension, rule out was of chemo-toxicity with anorexia, weakness and dehydration. The pain is clearly pleuritic and unrelated with cardiac origin. 2. Chronic atrial fibrillation which seems to be in control. 3. Chronic anticoagulation. 4. Diabetes type 2. 5. Hx hypertension, currently low blood pressure. 6. Chronic kidney disease Stage III. 7. History of recent to gross hematuria. 8. Progressive CLL. PLAN continue with IVF renal function improving avoid nephrotoxic agents UA + UTI, follow cultures continue with abx anemic, HH 7.9 status post PRBC x 1 per heme orders Plat 54 today WBC trending down, now 13.9 to have PAC placed per gen surgery appreciate heme input, continue to monitor renal fx, uric acid, LDH within normal limits, phos within normal limits, calcium within normal limits, continue hydration and Allopurinol Continue with Insulin q.a.c. and q.h.s. sliding scale coverage. Hold Metformin BP stable, continue to hold antihypertensive agents continue with hydration afib, HR controlled, will restart low-dose Lopressor monitor telemetry Home meds reviewed, initiated as indicated. Pepcid for GI prophylaxis Lovenox for DVT prophylaxis Follow labs in am Continue with present tx D/W RN D/W pt H&P consultation notes and previous note reviewed Labs neurological data and medications reviewed Liz Matt MD Dec 24, 2016 09:58
[2016-12-24] MEDS: ALLOPURINOL 100 MG TAB PO SCH (10:26)
[2016-12-24] MEDS: LEVOFLOXACIN 250 MG TAB PO SCH (10:26)
[2016-12-24] MEDS: SODIUM BICARBONATE 8.4% INJ 50 MEQ in SODIUM CHLOR 0.45% 1000 ML INJ 1,000 ML IV SCH (10:26)
[2016-12-24] MEDS: FAMOTIDINE 20 MG TAB PO SCH ×2 (10:26→21:17)
[2016-12-24] MEDS ORDERED: ONDANSETRON HCL 4 MG/2 ML VIAL IV PUSH ONE (12:00)
[2016-12-24] MEDS ORDERED: PROPOFOL 200 MG/20 ML AMP IV ONE (12:00)
--- NOTE | 2016-12-24 12:13 | PD.ONC.PN ---
Subjective Subjective Remarks Afebrile overnight. patient resting comfortably. She is NPO for port placement this afternoon. Feeling well. Objective Data Date Time Temp Pulse Resp B/P Pulse Ox O2 Delivery O2 Flow Rate FiO2 12/24/16 08:04 100 12/24/16 07:50 97.2 85 20 118/66 100 12/24/16 02:35 96.5 77 16 104/57 94 12/24/16 01:00 97.6 93 15 112/70 93 12/24/16 00:15 97.8 108 16 114/66 94 12/24/16 00:00 97.0 95 16 127/67 95 12/23/16 23:32 97.5 106 15 121/53 93 12/23/16 21:55 99 Nasal Cannula 21 12/23/16 21:05 92 12/23/16 20:00 97.6 91 18 94/60 94 12/23/16 15:50 97.5 113 20 109/57 95 12/23/16 15:12 99 21 12/24/16 12/24/16 12/24/16 07:00 15:00 23:00 Intake Total 1960 ml Output Total 1200 ml Balance 760 ml Result Diagram: 12/24/16 0712/24/16 07 Laboratory Results Laboratory Tests Test 12/23/16 12/23/16 12/24/16 14:55 16:03 07:05 Blood Type A POSITIVE A POSITIVE Antibody Screen NEGATIVE Crossmatch Leukocyte-Reduced Red Blood Cells Blood Bank Comment White Blood Count 13.9 TH/MM3 Red Blood Count 3.11 MIL/MM3 Hemoglobin 7.9 GM/DL Hematocrit 24.6 % Mean Corpuscular Volume 79.2 FL Mean Corpuscular Hemoglobin 25.3 PG Mean Corpuscular Hemoglobin 32.0 % Concent Red Cell Distribution Width 19.3 % Platelet Count 54 TH/MM3 Mean Platelet Volume 8.8 FL Neutrophils (%) (Auto) % Lymphocytes (%) (Auto) % Monocytes (%) (Auto) % Eosinophils (%) (Auto) % Basophils (%) (Auto) % Neutrophils # (Auto) TH/MM3 Lymphocytes # (Auto) TH/MM3 Monocytes # (Auto) TH/MM3 Eosinophils # (Auto) TH/MM3 Basophils # (Auto) TH/MM3 CBC Comment AUTO DIFF Differential Total Cells 100 Counted Neutrophils % (Manual) 17 % Lymphocytes % 78 % Monocytes % 4 % Eosinophils % 1 % Neutrophils # (Manual) 2.4 TH/MM3 Differential Comment FINAL DIFF MANUAL Platelet Estimate LOW Platelet Morphology Comment NORMAL Ovalocytes 1+ Keratocytes OCC Sodium Level 141 MEQ/L Potassium Level 4.5 MEQ/L Chloride Level 106 MEQ/L Carbon Dioxide Level 28.7 MEQ/L Anion Gap 6 MEQ/L Blood Urea Nitrogen 29 MG/DL Creatinine 1.30 MG/DL Estimat Glomerular Filtration 39 ML/MIN Rate Random Glucose 133 MG/DL Uric Acid 6.9 MG/DL Calcium Level 8.3 MG/DL Protein Corrected Calcium 9.5 MG/DL Phosphorus Level 4.0 MG/DL Total Bilirubin 1.2 MG/DL Direct Bilirubin 0.2 MG/DL Indirect Bilirubin 1.0 MG/DL Aspartate Amino Transf 16 U/L (AST/SGOT) Alanine Aminotransferase 26 U/L (ALT/SGPT) Alkaline Phosphatase 73 U/L Lactate Dehydrogenase 246 U/L Total Protein 5.2 GM/DL Albumin 2.7 GM/DL Culture Results Microbiology Date/Time Procedure Status Source Growth 12/22/16 22:15 Aerobic Blood Culture - Preliminary Resulted Blood Peripheral NO GROWTH IN 2 DAYS 12/22/16 22:15 Anaerobic Blood Culture - Preliminary Resulted Blood Peripheral NO GROWTH IN 2 DAYS 12/22/16 22:22 Aerobic Blood Culture - Preliminary Resulted Blood Peripheral NO GROWTH IN 2 DAYS 12/22/16 22:22 Anaerobic Blood Culture - Preliminary Resulted Blood Peripheral NO GROWTH IN 2 DAYS 12/22/16 23:30 Urine Culture - Final Complete Urine Clean Catch Group B Beta Strep Administered Medications Medications (Trade) Dose Ordered Sig/Loretta Route PRN Reason Start Time Stop Time Status Last Admin Dose Admin Sodium Bicarbonate/ Sodium Chloride (Sodium Bicarbonate 8.4% Inj/1/2 NS 1000 ml Inj) 1,050 ml @ 75 mls/hr Q14H IV 12/22/16 16:00 12/24/16 10:26 Allopurinol (Zyloprim) 150 mg DAILY PO 12/23/16 09:00 12/24/16 10:26 Enoxaparin Sodium (Lovenox Inj) 30 mg Q24H SQ 12/22/16 15:00 12/22/16 17:00 Acetaminophen (Tylenol) 650 mg QID PRN PO FEVER 12/22/16 21:30 12/22/16 22:09 Levofloxacin (Levaquin) 250 mg DAILY PO 12/24/16 09:00 12/24/16 10:26 Famotidine (Pepcid) 10 mg BID PO 12/23/16 21:00 12/24/16 10:26 Levothyroxine Sodium (Synthroid) 75 mcg DAILY@06 PO 12/24/16 06:00 12/24/16 05:50 Diphenhydramine HCl (Benadryl) 25 mg Q4H PRN PO FOR BLOOD PRODUCT 12/23/16 21:15 12/23/16 22:05 Acetaminophen (Tylenol) 650 mg Q4H PRN PO FOR BLOOD PRODUCT 12/23/16 21:15 12/23/16 22:05 Objective Remarks GENERAL: Elderly female, upright in bed in nad SKIN: Warm and dry. HEAD: Normocephalic. EYES: No injection or drainage. NECK: Supple, trachea midline. CARDIOVASCULAR: Regular rate and rhythm RESPIRATORY: Breath sounds equal bilaterally. No accessory muscle use. GASTROINTESTINAL: Abdomen soft, non-tender, nondistended. EXTREMITIES: No cyanosis. NEUROLOGICAL: awake and alert, normal speech. moving all extremities. Assessment/Plan Problem List: (1) Chronic lymphocytic leukemia Status: Acute Plan: History: --initially diagnosed with CLL in 1989. --had chronic disease for a long time. --Due to fatigue symptoms, was started on Leukeran as initial therapy, approximately two years ago. --Due to cytopenias and toxicities to the leukeran, her therapy was stopped. -- transferred her care to [facility] and she was seen initially on November 11, 2016. -- 11/20/2016 bone marrow biopsy showed increased cellularity, features of low grade B-cell lymphoproliferative disorder consistent with chronic lymphocytic leukemia. The marrow revealed infiltration of the small intermediate size lymphocytes. There is decreased residual hematopoiesis. She was developing cytopenias mainly anemia and thrombocytopenia. --12/21/16: received test dose of Obintuzumab 100mg. tolerated therapy well --12/13/16: woke up and felt woozy and dizzy. presented to clinic for day 2 of Obintuzumab but was hypotensive and hypoxic. sent to hospital for admission (2) Tumor lysis syndrome following antineoplastic drug therapy Status: Acute Plan: --currently on allopurinol 150mg PO daily + NS hydration therapy --monitor uric acid, LDH, phosphorus, calcium, renal function Assessment 86y/o with CLL and acute tumor lysis syndrome post obinutuzumab. h/o Chronic anemia. Arthritis. Atrial fibrillation. Diabetes type 2. Hypercholesterolemia. Hypertension. Hypothyroidism. Macular degeneration. Chronic renal insufficiency. Microscopic hematuria. Chronic lymphocytic leukemia. Plan 1. port placement today 2. expect d/c tomorrow 3. renal function, uric acid continuing to improve. will monitor. follow up in clinic upon discharge. Attending Statement The exam, history, and the medical decision-making described in the above note were completed with the assistance of the mid-level provider. I reviewed and agree with the findings presented. I attest that I had a [id number] encounter with the patient on the same day, and personally performed and documented my assessment and findings in the medical record. Pt seen and examined in AM. Pt preparing self for port placement. Renal function continue to improve. Clinically feel better. Uric acid still elevated. Amy Durant Dec 24, 2016 12:13 Ofelia King MD Dec 24, 2016 17:59
[2016-12-24] MEDS ORDERED: SODIUM CHLORID 0.9% 500 ML IV SCH (13:00)
[2016-12-24] MEDS ORDERED: LACTATED RINGER'S 1000 ML IV SCH (13:00)
[2016-12-24] MEDS ORDERED: BUPIVACAINE/EPINEPHRINE 0.5% PF 30 ML VIAL ONE (13:01)
[2016-12-24] MEDS ORDERED: HEPARIN SODIUM - SQ 10,000 UNITS/ML VIAL ONE (13:01)
[2016-12-24] MEDS ORDERED: ceFAZolin INJ 1,000 MG VIAL ONE (13:02)
[2016-12-24] MEDS ORDERED: HEPARIN SODIUM - IV 10,000 UNITS/10 ML VIAL ONE (13:02)
[2016-12-24] MEDS ORDERED: SODIUM BICARBONATE 8.4% INJ 50 MEQ/50 ML SYR ONE (13:06)
[2016-12-24] MEDS ORDERED: LIDOCAINE 1%/EPINEPHrine 1:100,000 SOLN 30 ML VIAL ONE (13:06)
[2016-12-24] MEDS ORDERED: VANCOMYCIN 500 MG VIAL ONE (13:06)
[2016-12-24] MEDS ORDERED: LIDOCAINE 1%/EPINEPHrine 1:100,000 SOLN 20 ML VIAL ONE (13:07)
[2016-12-24] MEDS ORDERED: MIDAZOLAM HCL 2 MG/2 ML VIAL ONE (13:18)
--- NOTE | 2016-12-24 14:21 | HHI.PR ---
Immediate Post Op Note Procedure Date: Dec 24, 2016 Pre Op Diagnosis: (1) Chronic lymphocytic leukemia (2) Tumor lysis syndrome following antineoplastic drug therapy Post Op Diagnosis: (1) Chronic lymphocytic leukemia (2) Tumor lysis syndrome following antineoplastic drug therapy Surgeon: Scott Yao [employer] Paralegal(s): none Procedure: left SC vain powerport placement Findings: cath in position Complications: none Specimen(s) removed: none Estimated blood loss: 10ml Anesthesia: General, Local Drains: None IVF Patient to: PACU Patient Condition: Good Scott Yao MD Dec 24, 2016 14:21
[2016-12-24] MEDS ORDERED: DO NOT ADM ANY ANTICOAGULANT DRUGS XX PRN (14:26)
[2016-12-24] MEDS ORDERED: KETAMINE HCL 500 MG/5 ML VIAL ONE (14:35)
[2016-12-24] MEDS: ENOXAPARIN SODIUM 30 MG/0.3 ML SYRINGE SQ SCH (15:00)
--- NOTE | 2016-12-24 15:07 | RADRPT ---
EXAM DATE/TIME: 12/24/2016 14:45 [facility] COMPARISON: CHEST SINGLE AP, December 22, 2016, 21:35. INDICATIONS : Post infusaport placement. Evaluate for pneumothorax. MEDICAL HISTORY : Unobtainable. SURGICAL HISTORY : Unobtainable. ENCOUNTER: Initial ACUITY: 1 day PAIN SCORE: Non-responsive. LOCATION: Bilateral chest FINDINGS: Left chest [id number] is present with catheter tubing extending to the SVC. There is no evidence o f pneumothorax or other complication of placement. Accounting for rotation, the cardiomediastinal con tours are satisfactory. Slight streaky basilar parenchymal opacities present similar to prior.. CONCLUSION: Satisfactory port positioning. No pneumothorax Carlton Weiss MD on December 24, 2016 at 15:04 Board Certified Radiologist. This report was verified electronically.
[2016-12-24] MEDS: METOPROLOL TARTRATE 25 MG TAB PO SCH (21:15)
[2016-12-24] MEDS ORDERED: ARTIFICIAL TEARS OPTH SOLN 15 ML BTL EACH EYE PRN (22:30)
[2016-12-25] VITALS: BP 138/66; PULSE 55; RESP 15; TEMP 97.7; O2SAT 97
[2016-12-25] MEDS: SODIUM BICARBONATE 8.4% INJ 50 MEQ in SODIUM CHLOR 0.45% 1000 ML INJ 1,000 ML IV SCH ×2
[2016-12-25] MEDS: RESP: ALBUTEROL 2.5 MG/IPRATROPIUM 0.5 MG NEB (SCH) NEB ×2 (03:17→09:05)
[2016-12-25 03:20] VITALS: O2SAT 99
[2016-12-25 04:00] VITALS: BP 126/62; PULSE 55; RESP 15; TEMP 96.9; O2SAT 98
[2016-12-25] MEDS: INSULIN ASPART SUPPLEMENTAL SCALE SQ SCH ×2 (06:42→12:27)
[2016-12-25] MEDS: LEVOTHYROXINE SODIUM 75 MCG TAB PO SCH (06:43)
[2016-12-25 06:59] LABS: HEMATOCRIT 23.6 % (35.0-46.0); MEAN CELL VOLUME 79.1 FL (80.0-100.0); MEAN CORPUSCULAR HEMOGLOBIN 25.4 PG (27.0-34.0); MEAN CORPUSCULAR HGB CONC 32.1 % (32.0-36.0); PLATELET COUNT 57 TH/MM3 (150-450); RED BLOOD COUNT 2.98 MIL/MM3 (4.00-5.30); RED CELL DISTRIBUTION WIDTH 19.2 % (11.6-17.2); WHITE BLOOD COUNT 12.3 TH/MM3 (4.0-11.0)
[2016-12-25 07:11] LABS: HEMO FLAGS AUTO DIFF
[2016-12-25 07:29] LABS: BICARBONATE 29.1 MEQ/L (21.0-32.0); INDIRECT BILIRUBIN 0.7 MG/DL (0.0-0.8); MAGNESIUM 2.3 MG/DL (1.5-2.5); POTASSIUM 4.4 MEQ/L (3.5-5.1); TOTAL BILIRUBIN ADULT 0.9 MG/DL (0.2-1.0); URIC ACID 5.4 MG/DL (2.6-6.0)
[2016-12-25 08:00] VITALS: BP 154/74; PULSE 54; PULSE 80; RESP 16; TEMP 96.5; O2SAT 90
[2016-12-25 08:21] LABS: BANDS 3 % (0-6); MYELOCYTES 1 % (0-0); NEUTROPHIL # MANUAL DIFF 2.7 TH/MM3 (1.8-7.7); POLYS (SEG NEUTROPHILS) 18 % (16-70); WBC DIFF SAMPLE 100
[2016-12-25 08:22] LABS: ACANTHOCYTES OCC (NORMAL); HELMET CELLS OCC (NORMAL); KERATOCYTES OCC (NORMAL); OVALOCYTES 1+ (NORMAL)
[2016-12-25 08:23] LABS: PLATELET ESTIMATE SMEAR LOW (NORMAL); PLATELET MORPHOLOGY NORMAL (NORMAL)
[2016-12-25 08:24] LABS: SCAN/DIFF FINAL DIFF MANUAL
[2016-12-25] MEDS: ALLOPURINOL 100 MG TAB PO SCH (09:04)
[2016-12-25] MEDS: METOPROLOL TARTRATE 25 MG TAB PO SCH (09:04)
[2016-12-25] MEDS: FAMOTIDINE 20 MG TAB PO SCH (09:04)
[2016-12-25] MEDS: LEVOFLOXACIN 250 MG TAB PO SCH (09:04)
[2016-12-25 09:05] VITALS: O2SAT 96
--- NOTE | 2016-12-25 10:36 | PD.ONC.PN ---
Subjective Subjective Remarks Afebrile overnight. Patient resting comfortably without complaint. She is eager to know when she can go home. Objective Data Date Time Temp Pulse Resp B/P Pulse Ox O2 Delivery O2 Flow Rate FiO2 12/25/16 09:05 96 Nasal Cannula 2.00 12/25/16 08:00 96.5 80 16 154/74 90 12/25/16 04:00 96.9 55 15 126/62 98 12/25/16 03:20 99 Nasal Cannula 2.00 12/25/16 00:00 97.7 55 15 138/66 97 12/24/16 21:06 97 Nasal Cannula 2.00 12/24/16 21:00 55 12/24/16 20:00 97.8 65 16 121/57 95 12/24/16 16:10 97.6 58 20 133/61 97 12/24/16 16:00 60 16 116/60 95 Nasal Cannula 2 12/24/16 15:30 58 16 108/58 95 Nasal Cannula 2 12/24/16 15:00 56 16 112/64 96 Nasal Cannula 2 12/24/16 14:45 60 16 116/67 95 Nasal Cannula 2 12/24/16 14:30 56 16 111/63 95 Nasal Cannula 2 12/24/16 14:27 98.4 60 16 108/60 93 Nasal Cannula 2 12/24/16 11:50 98.2 115 20 111/56 97 12/25/16 12/25/16 12/25/16 07:00 15:00 23:00 Intake Total 991 ml Output Total 325 ml Balance 666 ml Result Diagram: 12/25/1616 12/25/16 0616 Laboratory Results Laboratory Tests Test 12/25/16 06:16 White Blood Count 12.3 TH/MM3 Red Blood Count 2.98 MIL/MM3 Hemoglobin 7.6 GM/DL Hematocrit 23.6 % Mean Corpuscular Volume 79.1 FL Mean Corpuscular Hemoglobin 25.4 PG Mean Corpuscular Hemoglobin 32.1 % Concent Red Cell Distribution Width 19.2 % Platelet Count 57 TH/MM3 Mean Platelet Volume 9.1 FL Neutrophils (%) (Auto) % Lymphocytes (%) (Auto) % Monocytes (%) (Auto) % Eosinophils (%) (Auto) % Basophils (%) (Auto) % Neutrophils # (Auto) TH/MM3 Lymphocytes # (Auto) TH/MM3 Monocytes # (Auto) TH/MM3 Eosinophils # (Auto) TH/MM3 Basophils # (Auto) TH/MM3 CBC Comment AUTO DIFF Differential Total Cells 100 Counted Neutrophils % (Manual) 18 % Band Neutrophils % 3 % Lymphocytes % 74 % Monocytes % 4 % Neutrophils # (Manual) 2.7 TH/MM3 Myelocytes 1 % Differential Comment FINAL DIFF MANUAL Platelet Estimate LOW Platelet Morphology Comment NORMAL Ovalocytes 1+ Helmet Cells OCC Acanthocytes OCC Keratocytes OCC Sodium Level 139 MEQ/L Potassium Level 4.4 MEQ/L Chloride Level 104 MEQ/L Carbon Dioxide Level 29.1 MEQ/L Anion Gap 6 MEQ/L Blood Urea Nitrogen 29 MG/DL Creatinine 1.46 MG/DL Estimat Glomerular Filtration 34 ML/MIN Rate Random Glucose 186 MG/DL Uric Acid 5.4 MG/DL Calcium Level 8.2 MG/DL Phosphorus Level 3.1 MG/DL Magnesium Level 2.3 MG/DL Total Bilirubin 0.9 MG/DL Direct Bilirubin 0.2 MG/DL Indirect Bilirubin 0.7 MG/DL Aspartate Amino Transf 13 U/L (AST/SGOT) Alanine Aminotransferase 22 U/L (ALT/SGPT) Alkaline Phosphatase 70 U/L Lactate Dehydrogenase 208 U/L Total Protein 5.1 GM/DL Albumin 2.7 GM/DL Culture Results Microbiology Date/Time Procedure Status Source Growth 12/22/16 22:15 Aerobic Blood Culture - Preliminary Resulted Blood Peripheral NO GROWTH IN 2 DAYS 12/22/16 22:15 Anaerobic Blood Culture - Preliminary Resulted Blood Peripheral NO GROWTH IN 2 DAYS 12/22/16 22:22 Aerobic Blood Culture - Preliminary Resulted Blood Peripheral NO GROWTH IN 2 DAYS 12/22/16 22:22 Anaerobic Blood Culture - Preliminary Resulted Blood Peripheral NO GROWTH IN 2 DAYS 12/22/16 23:30 Urine Culture - Final Complete Urine Clean Catch Group B Beta Strep Administered Medications Medications (Trade) Dose Ordered Sig/Loretta Route PRN Reason Start Time Stop Time Status Last Admin Dose Admin Sodium Bicarbonate/ Sodium Chloride (Sodium Bicarbonate 8.4% Inj/1/2 NS 1000 ml Inj) 1,050 ml @ 75 mls/hr Q14H IV 12/22/16 16:00 12/24/16 10:26 Allopurinol (Zyloprim) 150 mg DAILY PO 12/23/16 09:00 12/25/16 09:04 Enoxaparin Sodium (Lovenox Inj) 30 mg Q24H SQ 12/22/16 15:00 12/22/16 17:00 Acetaminophen (Tylenol) 650 mg QID PRN PO FEVER 12/22/16 21:30 12/22/16 22:09 Levofloxacin (Levaquin) 250 mg DAILY PO 12/24/16 09:00 12/25/16 09:04 Famotidine (Pepcid) 10 mg BID PO 12/23/16 21:00 12/25/16 09:04 Levothyroxine Sodium (Synthroid) 75 mcg DAILY@06 PO 12/24/16 06:00 12/25/16 06:43 Diphenhydramine HCl (Benadryl) 25 mg Q4H PRN PO FOR BLOOD PRODUCT 12/23/16 21:15 12/23/16 22:05 Acetaminophen (Tylenol) 650 mg Q4H PRN PO FOR BLOOD PRODUCT 12/23/16 21:15 12/23/16 22:05 Metoprolol Tartrate (Lopressor) 12.5 mg Q12HR PO 12/24/16 21:00 12/25/16 09:04 Artificial Tears (Tears Naturale Opth Soln) 2 drop UNSCH PRN EACH EYE DRY EYES 12/24/16 22:30 12/24/16 23:06 Objective Remarks GENERAL: Pleasant elderly female, sitting up in bed in nad. On 2L O2 via nc SKIN: Warm and dry. HEAD: Normocephalic. EYES: No scleral icterus. No injection or drainage. NECK: Supple, trachea midline. CARDIOVASCULAR: Regular rate and rhythm RESPIRATORY: Breath sounds equal bilaterally. No accessory muscle use. GASTROINTESTINAL: Abdomen soft, non-tender, nondistended. EXTREMITIES: No cyanosis, or edema. MUSCULOSKELETAL: Adequate muscle tone. NEUROLOGICAL: No obvious focal deficit. Awake, alert, and oriented x3. Assessment/Plan Problem List: (1) Chronic lymphocytic leukemia Status: Acute Plan: History: --initially diagnosed with CLL in 1989. --had chronic disease for a long time. --Due to fatigue symptoms, was started on Leukeran as initial therapy, approximately two years ago. --Due to cytopenias and toxicities to the leukeran, her therapy was stopped. -- transferred her care to [facility] and she was seen initially on November 11, 2016. -- 11/20/2016 bone marrow biopsy showed increased cellularity, features of low grade B-cell lymphoproliferative disorder consistent with chronic lymphocytic leukemia. The marrow revealed infiltration of the small intermediate size lymphocytes. There is decreased residual hematopoiesis. She was developing cytopenias mainly anemia and thrombocytopenia. --12/21/16: received test dose of Obintuzumab 100mg. tolerated therapy well --12/13/16: woke up and felt woozy and dizzy. presented to clinic for day 2 of Obintuzumab but was hypotensive and hypoxic. sent to hospital for admission (2) Tumor lysis syndrome following antineoplastic drug therapy Status: Acute Plan: --currently on allopurinol 150mg PO daily + NS hydration therapy --monitor uric acid, LDH, phosphorus, calcium, renal function Assessment 86y/o with CLL and acute tumor lysis syndrome post obinutuzumab. h/o Chronic anemia. Arthritis. Atrial fibrillation. Diabetes type 2. Hypercholesterolemia. Hypertension. Hypothyroidism. Macular degeneration. Chronic renal insufficiency. Microscopic hematuria. Chronic lymphocytic leukemia. Plan 1. clear for discharge 2. O2 walk test if needed for home O2 3. follow up in clinic next week. Attending Statement DC before could be seen. Agree with above. Follow up [facility] appt on Wednesday. mAy Durant Dec 25, 2016 10:36 Ofelia King MD Dec 25, 2016 22:26
--- NOTE | 2016-12-25 10:55 | HHI.PR ---
Subjective Interval History Patient has [id number]. Offering no complaints next on walking around Review of system for 10 point system otherwise unremarkable Vitals/Results Intake & Output 12/24/16 12/24/16 12/25/16 15:00 23:00 07:00 Intake Total 0 ml 290 ml 991 ml Output Total 600 ml 325 ml Balance -600 ml 290 ml 666 ml Intake Oral 0 ml 240 ml IV Total 50 ml 991 ml Output Urine Total 600 ml 325 ml # Bowel Movements 0 Vital Signs Vital Signs Date Time Temp Pulse Resp B/P Pulse Ox O2 Delivery O2 Flow Rate FiO2 12/25/16 09:05 96 Nasal Cannula 2.00 12/25/16 08:00 96.5 80 16 154/74 90 12/25/16 04:00 96.9 55 15 126/62 98 12/25/16 03:20 99 Nasal Cannula 2.00 12/25/16 00:00 97.7 55 15 138/66 97 12/24/16 21:06 97 Nasal Cannula 2.00 12/24/16 21:00 55 12/24/16 20:00 97.8 65 16 121/57 95 12/24/16 16:10 97.6 58 20 133/61 97 12/24/16 16:00 60 16 116/60 95 Nasal Cannula 2 12/24/16 15:30 58 16 108/58 95 Nasal Cannula 2 12/24/16 15:00 56 16 112/64 96 Nasal Cannula 2 12/24/16 14:45 60 16 116/67 95 Nasal Cannula 2 12/24/16 14:30 56 16 111/63 95 Nasal Cannula 2 12/24/16 14:27 98.4 60 16 108/60 93 Nasal Cannula 2 12/24/16 11:50 98.2 115 20 111/56 97 CBC/BMP: 12/25/16 0616 12/25/16 0616 Lab Results Laboratory Tests Test 12/25/16 06:16 White Blood Count 12.3 TH/MM3 Red Blood Count 2.98 MIL/MM3 Hemoglobin 7.6 GM/DL Hematocrit 23.6 % Mean Corpuscular Volume 79.1 FL Mean Corpuscular Hemoglobin 25.4 PG Mean Corpuscular Hemoglobin 32.1 % Concent Red Cell Distribution Width 19.2 % Platelet Count 57 TH/MM3 Mean Platelet Volume 9.1 FL Neutrophils (%) (Auto) % Lymphocytes (%) (Auto) % Monocytes (%) (Auto) % Eosinophils (%) (Auto) % Basophils (%) (Auto) % Neutrophils # (Auto) TH/MM3 Lymphocytes # (Auto) TH/MM3 Monocytes # (Auto) TH/MM3 Eosinophils # (Auto) TH/MM3 Basophils # (Auto) TH/MM3 CBC Comment AUTO DIFF Differential Total Cells 100 Counted Neutrophils % (Manual) 18 % Band Neutrophils % 3 % Lymphocytes % 74 % Monocytes % 4 % Neutrophils # (Manual) 2.7 TH/MM3 Myelocytes 1 % Differential Comment FINAL DIFF MANUAL Platelet Estimate LOW Platelet Morphology Comment NORMAL Ovalocytes 1+ Helmet Cells OCC Acanthocytes OCC Keratocytes OCC Sodium Level 139 MEQ/L Potassium Level 4.4 MEQ/L Chloride Level 104 MEQ/L Carbon Dioxide Level 29.1 MEQ/L Anion Gap 6 MEQ/L Blood Urea Nitrogen 29 MG/DL Creatinine 1.46 MG/DL Estimat Glomerular Filtration 34 ML/MIN Rate Random Glucose 186 MG/DL Uric Acid 5.4 MG/DL Calcium Level 8.2 MG/DL Phosphorus Level 3.1 MG/DL Magnesium Level 2.3 MG/DL Total Bilirubin 0.9 MG/DL Direct Bilirubin 0.2 MG/DL Indirect Bilirubin 0.7 MG/DL Aspartate Amino Transf 13 U/L (AST/SGOT) Alanine Aminotransferase 22 U/L (ALT/SGPT) Alkaline Phosphatase 70 U/L Lactate Dehydrogenase 208 U/L Total Protein 5.1 GM/DL Albumin 2.7 GM/DL Physical Exam General General Appearance: Well Developed, Well Nourished, No Acute Distress, Comfortable Eyes Eye Exam: Pupils Equal, Pupils Reactive Ears & Nose Ears & Nose Exam: Nasal Mucosa [place] Throat Throat Exam: Oral Mucosa [place] & Moist Neck Neck Exam: Neck Supple, Trachea Midline Pulmonary Resp Exam: Decreased Bases Cardiology CV Exam: Irregular, Arrhythmia CV Remarks Normal rate Gastrointestinal/Abdomen GI Exam: Soft, Non-Tender, Bowel Sounds Present, Non-Distended Musculoskeletal MS Exam: Joints Intact Integumentary Skin Exam: Warm, Dry Extremeties Extremities Exam: Pedal Pulses Palpable, Trace Edema Neurologic Neuro Exam: Alert, Awake, Oriented, Speech Clear, Moving All Extremities, No Focal Deficits Psychiatric Psych Exam: Appropriate Responses VTE Prophylaxis VTE Prophylaxis Device: SCDs Assessment/Plan Assessment/Plan 1. Weakness, hypotension, hypoxemia, right-sided pleuritic chest pain in an elderly lady who has a diagnosis of accelerated CLL status post first dose chemotherapy, concern about possible development of tumor lysis syndrome. Rule out superimposed infection, especially pneumonia resulting in left rib pain and hypertension, rule out was of chemo-toxicity with anorexia, weakness and dehydration. The pain is clearly pleuritic and unrelated with cardiac origin. 2. Chronic atrial fibrillation which seems to be in control. 3. Chronic anticoagulation. 4. Diabetes type 2. 5. Hx hypertension, currently low blood pressure. 6. Chronic kidney disease Stage III. 7. History of recent to gross hematuria. 8. Progressive CLL. PLAN IVF renal function improving avoid nephrotoxic agents UA + UTI, also reports seen continue with abx anemic, HH 7.6 stable, status post PRBC x 1 per heme orders Plt 57 today WBC trending down, now 12.3 Status post [id number] placement per gen surgery appreciate heme input, discuss with oncology PA okay to discharge Continue with Insulin q.a.c. and q.h.s. sliding scale coverage. Hold Metformin BP stable, continue to hold antihypertensive agents continue with hydration afib, HR controlled, will restart low-dose Lopressor monitor telemetry Home meds reviewed, initiated as indicated. Pepcid for GI prophylaxis Lovenox for DVT prophylaxis Labs reviewed D/W RN D/W pt DC planning for today Liz Matt MD Dec 25, 2016 10:55
[2016-12-25] MEDS ORDERED: LEVA250T PO (10:57)
--- NOTE | 2016-12-25 11:01 | HHI.DS ---
Discharge Summary Admission Date Dec 22, 2016 at 10:50 Admitting Diagnosis (1) Chronic lymphocytic leukemia Diagnosis: Principal (2) Tumor lysis syndrome following antineoplastic drug therapy Diagnosis: Principal Brief History Patient was admitted from her primary office because of hypotension and hypoxemia. Follow to have a weakness with hypoxemia and right sided pleuritic chest pain. Also follow to have a chemotoxicity with anorexia. Patient was put on appropriate medication including antibiotic. Later on followed patient has a UTI. Patient was also put on diet and Accu-Cheks for her diabetes. She had anemia for which blood transfusion was given. And also she has low platelet which were followed. Her white blood cell count were also followed. Her heart rate was monitored. As patient has a history of atrial fibrillation. Patient was followed by heme oncology. Patient was also seen by surgery and Hbprxu-o-Texn was given. The patient is overall a stable and good condition her platelet count is stable her anemia is stable. She had acute renal failure which is now better. Also her white blood count is better. So plan to discharge her home to be followed by her primary care doctor and oncology as outpatient. CBC/BMP: 12/25/16 0616 12/25/16 0616 Significant Findings Laboratory Tests Test 12/22/16 12/22/16 12/23/16 12/24/16 12:25 23:30 06:55 07:05 White Blood Count 32.9 TH/MM3 15.4 TH/MM3 13.9 TH/MM3 (4.0-11.0) (4.0-11.0) (4.0-11.0) Red Blood Count 3.22 MIL/MM3 2.96 MIL/MM3 3.11 MIL/MM3 (4.00-5.30) (4.00-5.30) (4.00-5.30) Hemoglobin 8.4 GM/DL 7.3 GM/DL 7.9 GM/DL (11.6-15.3) (11.6-15.3) (11.6-15.3) Hematocrit 26.7 % 23.4 % 24.6 % (35.0-46.0) (35.0-46.0) (35.0-46.0) Mean Corpuscular Hemoglobin 26.1 PG 24.8 PG 25.3 PG (27.0-34.0) (27.0-34.0) (27.0-34.0) Mean Corpuscular Hemoglobin 31.6 % 31.4 % Concent (32.0-36.0) (32.0-36.0) Red Cell Distribution Width 19.2 % 19.4 % 19.3 % (11.6-17.2) (11.6-17.2) (11.6-17.2) Platelet Count 76 TH/MM3 51 TH/MM3 54 TH/MM3 (150-450) (150-450) (150-450) Prothrombin Time 13.9 SEC (9.8-11.6) Sodium Level 135 MEQ/L (136-145) Carbon Dioxide Level 20.3 MEQ/L (21.0-32.0) Blood Urea Nitrogen 39 MG/DL (7-18) 39 MG/DL (7-18) 29 MG/DL (7-18) Creatinine 2.03 MG/DL 1.66 MG/DL 1.30 MG/DL (0.50-1.00) (0.50-1.00) (0.50-1.00) Estimat Glomerular Filtration 23 ML/MIN (>89) 29 ML/MIN (>89) 39 ML/MIN (>89) Rate Random Glucose 156 MG/DL 133 MG/DL 133 MG/DL (74-106) (74-106) (74-106) Lactic Acid Level 2.4 mmol/L (0.4-2.0) Uric Acid 11.2 MG/DL 9.5 MG/DL 6.9 MG/DL (2.6-6.0) (2.6-6.0) (2.6-6.0) Calcium Level 7.8 MG/DL 7.7 MG/DL 8.3 MG/DL (8.5-10.1) (8.5-10.1) (8.5-10.1) Phosphorus Level 5.1 MG/DL 5.3 MG/DL (2.5-4.9) (2.5-4.9) Aspartate Amino Transf 76 U/L (15-37) (AST/SGOT) Alkaline Phosphatase 118 U/L (45-117) Troponin I LESS THAN 0.02 NG/ML (0.02-0.05) Total Protein 6.3 GM/DL 5.3 GM/DL 5.2 GM/DL (6.4-8.2) (6.4-8.2) (6.4-8.2) Urine Turbidity HAZY (CLEAR) Urine Protein 30 mg/dL (NEG-TRACE) Urine Occult Blood MOD (NEG) Urine Leukocyte Esterase MOD (NEG) Urine RBC 6 /hpf (0-3) Urine WBC 18 /hpf (0-5) Urine Mucus FEW /lpf (OCC) Mean Corpuscular Volume 79.0 FL 79.2 FL (80.0-100.0) (80.0-100.0) Lactate Dehydrogenase 380 U/L (84-246) Albumin 3.1 GM/DL 2.7 GM/DL (3.4-5.0) (3.4-5.0) Lymphocytes % 78 % (9-44) Platelet Estimate LOW (NORMAL) Ovalocytes 1+ (NORMAL) Keratocytes OCC (NORMAL) Total Bilirubin 1.2 MG/DL (0.2-1.0) Indirect Bilirubin 1.0 MG/DL (0.0-0.8) Test 12/25/16 06:16 White Blood Count 12.3 TH/MM3 (4.0-11.0) Red Blood Count 2.98 MIL/MM3 (4.00-5.30) Hemoglobin 7.6 GM/DL (11.6-15.3) Hematocrit 23.6 % (35.0-46.0) Mean Corpuscular Volume 79.1 FL (80.0-100.0) Mean Corpuscular Hemoglobin 25.4 PG (27.0-34.0) Red Cell Distribution Width 19.2 % (11.6-17.2) Platelet Count 57 TH/MM3 (150-450) Lymphocytes % 74 % (9-44) Myelocytes 1 % (0-0) Platelet Estimate LOW (NORMAL) Ovalocytes 1+ (NORMAL) Acanthocytes OCC (NORMAL) Keratocytes OCC (NORMAL) Blood Urea Nitrogen 29 MG/DL (7-18) Creatinine 1.46 MG/DL (0.50-1.00) Estimat Glomerular Filtration 34 ML/MIN (>89) Rate Random Glucose 186 MG/DL (74-106) Calcium Level 8.2 MG/DL (8.5-10.1) Aspartate Amino Transf 13 U/L (15-37) (AST/SGOT) Total Protein 5.1 GM/DL (6.4-8.2) Albumin 2.7 GM/DL (3.4-5.0) Pt Condition on Discharge: Good Discharge Disposition: Discharge Home Discharge Instructions DIET: Follow Instructions for: Diabetic Diet Activities you can perform: Weight Bearing as Alvin Follow up Referrals: Oncology - 3-5 Days PCP Follow-up - 2-3 Days New Medications: Levofloxacin (Levaquin) 250 Mg Tab 250 MG PO DAILY bacterial infection #7 TAB Continued Medications: Allopurinol (Allopurinol) 100 Mg Tab 100 MG PO DAILY Gout #30 Ref 1 TAB Furosemide (Furosemide) 20 Mg Tab 20 MG PO DAILY PRN EDEMA #30 Ref 0 TAB Levothyroxine (Levothyroxine) 75 Mcg Tab 75 MCG PO DAILY Thyroid #30 Ref 0 TAB Metformin (Metformin) 500 Mg Tab 500 MG PO BIDPC With meals Blood Sugar Management #60 Ref 0 TAB Metoprolol Tartrate (Metoprolol Tartrate) 25 Mg Tab 25 MG PO DAILY #30 Ref 0 TAB Rosuvastatin (Crestor) 10 Mg Tab 10 MG PO HS PRN Cholesterol Management #30 Ref 1 TAB Discontinued Medications: Losartan (Losartan) 50 Mg Tab 50 MG PO DAILY Blood Pressure Management #30 Ref 0 TAB Liz Matt MD Dec 25, 2016 11:01
[2016-12-25 12:00] VITALS: BP 136/69; PULSE 75; RESP 16; TEMP 96.2; O2SAT 97
--- NOTE | 2016-12-28 10:59 | MP ---
cc: KEV MARKS DATE OF SURGERY: 12/24/2016 PREOPERATIVE DIAGNOSIS Tumor lysis syndrome and chronic lymphocytic leukemia. POSTOPERATIVE DIAGNOSIS Tumor lysis syndrome and chronic lymphocytic leukemia. PROCEDURE 1. Left subclavian vein Nivfsz-H-Buaq placement. 2. Intraoperative interpretation of fluoroscopic images. ANESTHESIA Local anesthetic and conscious sedation. ATTENDING SURGEON Dr. Marks. BRIM IRONER HAND None. BLOOD LOSS Less than 10 ccs. COMPLICATIONS None. IMPLANTED DEVICES Bard PowerPort 8-[place]banian Yyojql-C-Rqjf catheter in left subclavian vein. FINDINGS Tip of the catheter in atriocaval junction with aspiration and flush with heparin of port. INDICATIONS FOR PROCEDURE The patient is an 86-year-old female with tumor lysis syndrome after treatment of her CLL. The patient is also a difficult venous access and the patient needs durable reliable IV access for her continued treatment and supportive care. Risks, benefits, alternatives to Vcbzid-Y-Rlpg placement were discussed with the patient prior to the procedure and the patient agreed to undergo the procedure. PROCEDURE After informed consent was obtained the patient was taken to the operating room and placed in the supine position, placed under conscious sedation. The patient's left chest and neck were prepped and draped in sterile fashion. Time-out was performed. Local anesthetic of Marcaine and lidocaine was used at the planned Port-A-Cath site. Left subclavian vein was accessed with a 18 gauge finder needle without difficulty. Wire was advanced which initially went cephalad at the jugular vein but it was quite easily redirected into the venous system across midline at the superior vena cava. We then are able to extend this percutaneous stick site into a 2.5 cm horizontal incision and used Bovie electrocautery to make a subcutaneous pocket in the left chest wall. We are able to dilate this tract with dilator introducer assembly, introduced the Ywvckl-L-Wczw catheter into the venous system without difficulty. This was measured at 22 cm with the tip in the atriocaval junction. This was assembled according to manufacture's guidelines and placed into the pocket without difficulty. We confirmed this being in position and without kinking on fluoroscopy. We were able to aspirate blood and flush the catheter with 100 units/cc of heparin solution. At this point in time we turned our attention towards closure. We closed the subcutaneous tissue with 3-0 Vicryl followed by 4-0 Monocryl and Dermabond for skin closure. The patient was discontinued from her sedation and taken to PACU in stable condition. The patient tolerated the procedure well. No apparent complications. All counts were correct. I was present and scrubbed for the entire procedure. MD ANGELA Ascencio/JIMENEZ /2:27 PM /10:38 AM
== END 2016-12-25 14:15 | disposition home or self-care (01) | DRG 683 ==
LOC: HOCB 10:50
PROVIDERS: ADMIT Specialist; ATTEND Specialist
PROC: B5171ZA Fluoroscopy of Left Subclavian Vein using Low Osmolar Contrast, Guidance (ICD-10-PCS; 2016-12-24)
PROC: 30253N1 (ICD-10-PCS; 2016-12-24)
PROC: 05H633Z Insertion of Infusion Device into Left Subclavian Vein, Percutaneous Approach (ICD-10-PCS; principal; 2016-12-24 13:34)
DX: E88.3 Tumor lysis syndrome (principal); C91.10 Chronic lymphocytic leukemia of B-cell type not having achieved remission; I95.9 Hypotension, unspecified; E11.22 Type 2 diabetes mellitus with diabetic chronic kidney disease; D69.6 Thrombocytopenia, unspecified; N39.0 Urinary tract infection, site not specified; I48.2 Chronic atrial fibrillation; R63.0 Anorexia; N18.3 Chronic kidney disease, stage 3 (moderate); I12.9 Hypertensive chronic kidney disease with stage 1 through stage 4 chronic kidney disease, or unspecified chronic kidney disease; R09.02 Hypoxemia; E78.5 Hyperlipidemia, unspecified; E03.9 Hypothyroidism, unspecified; H35.30 Unspecified macular degeneration; R07.81 Pleurodynia; R53.1 Weakness; Z79.01 Long term (current) use of anticoagulants; N17.9 Acute kidney failure, unspecified; D64.9 Anemia, unspecified; M19.90 Unspecified osteoarthritis, unspecified site; T45.1X5A Adverse effect of antineoplastic and immunosuppressive drugs, initial encounter; F17.210 Nicotine dependence, cigarettes, uncomplicated
CPT/HCPCS: 36430; 71010; 71020; 77001; 80048; 80053; 80076; 81001; 82948; 83605; 83615; 83735; 84100; 84155; 84443; 84484; 84550; 85007; 85027; 85610; 85730; 86403; 86850; 86900; 86901; 86920; 87040; 87086; 93005; 94620; 94640; 96367; 96375; 96413; 96415; 99215; C1788; C9113; G0463; J0690; J1100; J1626; J1644; J1650; J1815; J1956; J2250; J2405; J3010; J3370; J7040; J7050; J7120; J9301; P9016; Q0163

== ENCOUNTER 2016-12-30 16:34 | Inpatient (IN) | payer OTHER, MEDICARE ==
[~2016-12-30] VITALS: Ht 172.7 cm; Wt 53.0 kg
[2016-12-30] VITALS (9 sets, daily range): BP systolic 70–102; BP diastolic 42–75; PULSE 98–117; RESP 16–18; TEMP 97.8–99.4; O2SAT 89–98
[~2016-12-30 16:34] MED LIST changes: +ALLO100T PO; -FERRCAP6 PO; -JANT1TAB PO; -JANT7.5T PO; +LEVA250T PO; -LOSA50TA PO; -MACR100C2 PO; +ROSU10 PO
[2016-12-30] MEDS ORDERED: SODIUM CHLOR 0.9% 1000 ML INJ 1,000 ML IV ONE ×2 (17:06)
[2016-12-30] MEDS ORDERED: VANCOMYCIN INJ 1,000 MG in SODIUM CHLOR 0.9% 250 ML INJ 250 ML IV STA (17:16)
[2016-12-30] MEDS ORDERED: CEFEPIME INJ 2,000 MG in SODIUM CHLORIDE 0.9% INJ 100 ML IV STA (17:27)
--- NOTE | 2016-12-30 17:32 | PD ---
HPI Chief Complaint: Fever Time Seen by Provider: 17:06 Travel History International Travel<30 days: No Contact w/Intl Traveler<30days: No Traveled to known affect area: No History of Present Illness HPI 86-year-old female with history of CLL presents with fever today. She took Tylenol prior to arrival. Fever was in the 101 range. She states she last received chemotherapy his Wednesday and had blood work yesterday. She states her oncologist advised her to come to the hospital. She states she's not having other specific symptoms other than weakness. She confirms she was recently in the hospital and is on antibiotic but she does not recall the name. History is supplemented by records. PFSH Past Medical History Hx Anticoagulant Therapy: Yes (WARFARIN) Atrial Fibrillation: Yes Cancer: Yes (LEUKEMIA) Cardiovascular Problems: Yes (HTN, CHOL) Diabetes: Yes (TYPE 2 ) Diminished Hearing: No Thyroid Disease: Yes Menopausal: Yes Dilation and Curettage (D&C): Yes (2013) Past Surgical History Appendectomy: Yes Gynecologic Surgery: Yes (D AND C) Family History Family Hypercholesterolemia: Yes Social History Alcohol Use: No Tobacco Use: No ("QUIT 30+ YEARS AGO" STATED 11/08/16) Substance Use: No Allergies-Medications (Allergen,Severity, Reaction): Coded Allergies: No Known Allergies (Unverified , 12/30/16) Reported Meds & Prescriptions Reported Meds & Active Scripts Active Levaquin (Levofloxacin) 250 Mg Tab 250 Mg PO DAILY Reported Allopurinol 100 Mg Tab 100 Mg PO DAILY Crestor (Rosuvastatin Calcium) 10 Mg Tab 10 Mg PO HS PRN Metoprolol Tartrate 25 Mg Tab 25 Mg PO DAILY Levothyroxine (Levothyroxine Sodium) 75 Mcg Tab 75 Mcg PO DAILY Furosemide 20 Mg Tab 20 Mg PO DAILY PRN Metformin (Metformin HCl) 500 Mg Tab 500 Mg PO BIDPC With meals Review of Systems Except as stated in HPI: all other systems reviewed are Neg Physical Exam Narrative GENERAL: Well-nourished, well-developed patient. SKIN: Warm and dry. HEAD: Normocephalic and atraumatic. EYES: No injection or drainage. ENT: No nasal drainage noted. NECK: Supple, trachea midline. CARDIOVASCULAR: irregular rate and rhythm RESPIRATORY: Breath sounds equal bilaterally at apices. No accessory muscle use. GASTROINTESTINAL: Abdomen soft, non-tender, nondistended. NEUROLOGICAL: Awake, Moves all extremities. Normal speech. Data Data Last Documented VS Vital Signs Date Time Temp Pulse Resp B/P Pulse Ox O2 Delivery O2 Flow Rate FiO2 12/30/16 18:30 97 Nasal Cannula 2 12/30/16 18:29 105 18 84/48 12/30/16 17:39 99.2 Orders Electrocardiogram (12/30/16 17:06) Complete Blood Count With Diff (12/30/16 17:06) Comprehensive Metabolic Panel (12/30/16 17:06) Prothrombin Time / Inr (Pt) (12/30/16 17:06) Act Partial Throm Time (Ptt) (12/30/16 17:06) Lactic Acid Sepsis Protocol (12/30/16 17:06) Magnesium (Mg) (12/30/16 17:06) Phosphorus (Po4) (12/30/16 17:06) Ckmb (Isoenzyme) Profile (12/30/16 17:06) Troponin I (12/30/16 17:06) Urinalysis - C+S If Indicated (12/30/16 17:06) Influenzae A/B Antigen (12/30/16 17:06) Blood Culture (12/30/16 17:06) Chest, Single Ap (12/30/16 17:06) Ecg Monitoring (12/30/16 17:06) Iv Access Insert/Monitor (12/30/16 17:06) Oximetry (12/30/16 17:06) Sodium Chlor 0.9% 1000 Ml Inj (Ns 1000 M (12/30/16 17:06) Sodium Chlor 0.9% 1000 Ml Inj (Ns 1000 M (12/30/16 17:06) Vancomycin Inj (Vancomycin Inj) (12/30/16 17:16) Cefepime Inj (Maxipime Inj) (12/30/16 17:27) Admit Order (Ed Use Only) (12/30/16 18:09) Physician Name Changes (12/30/16 ) Consult Medical Oncology (12/30/16 ) Platelet Pheresis (12/30/16 18:40) Blood Product Administration .UPON TRANSFUSION (12/30/16 18:40) Sodium Chlor 0.9% 250 Ml Inj (Ns 250 Ml (12/30/16 18:45) Labs Laboratory Tests Test 12/30/16 12/30/16 17:10 17:17 White Blood Count 4.6 TH/MM3 Red Blood Count 3.71 MIL/MM3 Hemoglobin 9.7 GM/DL Hematocrit 29.4 % Mean Corpuscular Volume 79.4 FL Mean Corpuscular Hemoglobin 26.1 PG Mean Corpuscular Hemoglobin 32.9 % Concent Red Cell Distribution Width 19.8 % Platelet Count 22 TH/MM3 Mean Platelet Volume 10.9 FL Neutrophils (%) (Auto) 78.8 % Lymphocytes (%) (Auto) 16.8 % Monocytes (%) (Auto) 4.1 % Eosinophils (%) (Auto) 0.1 % Basophils (%) (Auto) 0.2 % Neutrophils # (Auto) 3.6 TH/MM3 Lymphocytes # (Auto) 0.8 TH/MM3 Monocytes # (Auto) 0.2 TH/MM3 Eosinophils # (Auto) 0.0 TH/MM3 Basophils # (Auto) 0.0 TH/MM3 CBC Comment AUTO DIFF Differential Comment AUTO DIFF CONFIRMED Ovalocytes 2+ Silvina Cells 1+ Crenated Cell 2+ Keratocytes 1+ Prothrombin Time 12.7 SEC Prothromb Time International 1.1 RATIO Ratio Activated Partial 29.6 SEC Thromboplast Time Sodium Level 135 MEQ/L Potassium Level 3.3 MEQ/L Chloride Level 99 MEQ/L Carbon Dioxide Level 24.8 MEQ/L Anion Gap 11 MEQ/L Blood Urea Nitrogen 38 MG/DL Creatinine 2.00 MG/DL Estimat Glomerular Filtration 24 ML/MIN Rate Random Glucose 261 MG/DL Calcium Level 7.7 MG/DL Phosphorus Level 3.2 MG/DL Magnesium Level 2.0 MG/DL Total Bilirubin 2.3 MG/DL Aspartate Amino Transf 83 U/L (AST/SGOT) Alanine Aminotransferase 57 U/L (ALT/SGPT) Alkaline Phosphatase 62 U/L Total Creatine Kinase 21 U/L Troponin I 0.02 NG/ML Total Protein 5.5 GM/DL Albumin 2.7 GM/DL Lactic Acid Level 2.0 mmol/L [facility] Medical Decision Making Medical Screen Exam Complete: Yes Emergency Medical Condition: Yes Medical Record Reviewed: Yes (past history confirm, recent hospitalization reviewed, sent home on Levaquin) Interpretation(s) CBC & BMP Diagram 12/30/16 17:10 cxr no acute Differential Diagnosis Neutropenic fever, sepsis, tumor lysis syndrome, A. fib RVR, anemia.... Narrative Course Will check blood work, urinalysis, chest x-ray and dose with IV fluid hydration and cefepime and vancomycin and reevaluate Patient updated and agrees to ICU admission patient's family updated at bedside, after 1 liter Critical Care Narrative Aggregate critical care time was 40 minutes. Time to perform other separately billable procedures was not included in the critical care time. My time did not include minutes spent treating any other patients simultaneously or on activities that did not directly contribute to the patient's treatment. The services I provided to this patient were to treat and/or prevent clinically significant deterioration that could result in: Septic shock I provided critical care services requiring my management, as noted below: Chart data review, documentation time, medication orders and management, vital sign assessments/reviewing monitor data, ordering and reviewing lab tests, ordering and interpreting/reviewing x-rays and diagnostic studies, care of the patient and discussion of the patient with the admitting physicians. Sepsis Criteria SIRS Criteria (2 or more): Temp > 100.9 or < 96.8, Heart rate over 90 Sepsis Criteria (SIRS+source): Infect source susp/known Severe Sepsis (+one): Acute Oliguria/Renal Failure Criteria Outcome: Meets severe sepsis criteria Physician Communication Physician Communication dr portillo agrees to cefepime and vancomycin with ivf and admit to icu, recent tumor lysis dr caba agrees to admit in [facility] Diagnosis Primary Impression: Sepsis Qualified Code: A41.9 - Sepsis, due to unspecified organism Additional Impressions: Chronic lymphocytic leukemia Thrombocytopenia Acute renal failure Qualified Code: N17.9 - Acute renal failure, unspecified acute renal failure type Admitting Information Admitting Physician Requests: Admit Sherrill Arboleda MD Dec 30, 2016 17:32
[2016-12-30 17:34] LABS: AUTOMATED NEUTROPHIL # 3.6 TH/MM3 (1.8-7.7); BASOPHIL % 0.2 % (0.0-2.0); EOSINOPHIL % 0.1 % (0.0-4.0); HEMATOCRIT 29.4 % (35.0-46.0); LYMPH % 16.8 % (9.0-44.0); LYMPHOCYTE # 0.8 TH/MM3 (1.0-4.8); MEAN CELL VOLUME 79.4 FL (80.0-100.0); MEAN CORPUSCULAR HEMOGLOBIN 26.1 PG (27.0-34.0); MEAN CORPUSCULAR HGB CONC 32.9 % (32.0-36.0); MONO % 4.1 % (0.0-8.0); NEUT % 78.8 % (16.0-70.0); PLATELET COUNT 22 TH/MM3 (150-450); RED BLOOD COUNT 3.71 MIL/MM3 (4.00-5.30); RED CELL DISTRIBUTION WIDTH 19.8 % (11.6-17.2); WHITE BLOOD COUNT 4.6 TH/MM3 (4.0-11.0)
[2016-12-30 17:37] LABS: HEMO FLAGS AUTO DIFF
[2016-12-30 17:38] LABS: CHLORIDE 99 MEQ/L (98-107); POTASSIUM 3.3 MEQ/L (3.5-5.1); SODIUM (NA) 135 MEQ/L (136-145)
[2016-12-30 17:42] LABS: ANION GAP 11 MEQ/L (5-15); BICARBONATE 24.8 MEQ/L (21.0-32.0); BLOOD UREA NITROGEN 38 MG/DL (7-18)
[2016-12-30 17:43] LABS: APTT (PATIENT) 29.6 SEC (24.3-30.1); INTERNATIONAL NORMALIZED RATIO 1.1 RATIO; PROTHROMBIN TIME - PATIENT 12.7 SEC (9.8-11.6)
[2016-12-30 17:44] LABS: ALT (GPT) 57 U/L (10-53); AST (GOT) 83 U/L (15-37)
[2016-12-30 17:45] LABS: GLOMERULAR FILTRATION RATE 24 ML/MIN (>89)
--- NOTE | 2016-12-30 17:45 | RADHPO ---
EXAM DATE/TIME: 12/30/2016 17:20 [facility] COMPARISON: CHEST SINGLE AP, December 24, 2016, 14:45. INDICATIONS : Fever starting today MEDICAL HISTORY : Leukemia. A-fib SURGICAL HISTORY : Port placement ENCOUNTER: Initial ACUITY: 1 day PAIN SCORE: 0/10 LOCATION: Bilateral chest FINDINGS: Rigerv-n-lotv is in good position. The lungs are clear. Heart and pulmonary vascularity are normal. Portion of bony skeleton visualized is unremarkable. CONCLUSION: Negative chest for acute disease. Adilson Banks MD FACR on December 30, 2016 at 17:40 Board Certified Radiologist. This report was verified electronically.
[2016-12-30 17:46] LABS: TOTAL BILIRUBIN ADULT 2.3 MG/DL (0.2-1.0)
[2016-12-30 17:47] LABS: ALKALINE PHOSPHATASE 62 U/L (45-117)
[2016-12-30 17:51] LABS: CREATINE KINASE 21 U/L (26-192)
[2016-12-30 18:17] LABS: GLUCOSE,URINE 250 mg/dL (NEG); KETONE, URINE NEG (NEG); NITRITE,URINE NEG (NEG); PH, URINE 5.5 (5.0-8.5)
[2016-12-30 18:39] LABS: BURR CELLS 1+ (NORMAL); CRENATED RBCS 2+ (NORMAL); KERATOCYTES 1+ (NORMAL); OVALOCYTES 2+ (NORMAL)
[2016-12-30 18:40] LABS: SCAN/DIFF AUTO DIFF CONFIRMED
[2016-12-30] MEDS ORDERED: SODIUM CHLOR 0.9% 250 ML INJ 250 ML IV ONE (18:45)
[2016-12-30 18:47] LABS: BLOOD, URINE MOD (NEG)
[2016-12-30 18:48] LABS: MUCUS URINE FEW /lpf (OCC); URINE COLOR YELLOW (YELLW/STRAW)
[2016-12-30 18:49] LABS: COMMENT (UR) CATH-CULT NOT IND; CULTURE IF INDICATED CATH CULTURE NOT IND
[2016-12-30] MEDS ORDERED: DEXTROSE 50% IN WATER 50 ML VIAL(D50) IV PUSH PRN (22:00)
[2016-12-30] MEDS ORDERED: GLUCAGON 1 MG/ML VIAL OTHER PRN (22:00)
[2016-12-30] MEDS: SODIUM CHLOR 0.9% 1000 ML INJ 1,000 ML IV SCH (22:00)
[2016-12-31] VITALS (19 sets, daily range): BP systolic 77–104; BP diastolic 49–65; PULSE 90–133; RESP 12–23; TEMP 97.8–101.7; O2SAT 95–100
[2016-12-31] MEDS ORDERED: ATORVASTATIN 20 MG TAB PO PRN (03:00)
[2016-12-31] MEDS ORDERED: CALCIUM GLUCONATE INJ 1 GM in DEXTROSE 5% IN WATER 100ML INJ 100 ML IV ONE ×2 (03:00)
--- NOTE | 2016-12-31 03:00 | HHI.HP ---
[facility] Service Critical Care Medicine Primary Care Physician Nicolas Zhu MD Admission Diagnosis sepsis Diagnosis: Travel History International Travel<30 Days: No Contact w/Intl Traveler <30 Da: No Traveled to Known Affected Are: No History of Present Illness 86 yo F with PMH of CLL originally diagnosed in 1998, diabetes mellitus, hypercholesterolemia, hypothyroidism, CKD. She had been treated with Leukoveran which was discontinued about 8 months ago. She had progression of disease consisting of doubling of WBC, presence of thrombocytopenia and anemia and therefore was started on chemotherapy with obinutuzumab (given initial test dose 12/21/16). She developed hypotension and hypoxia following chemo and was admitted to [facility] on 12/22 and found to have abrupt response in therapy. She developed tumor lysis syndrome. She was discharged on levaquin. She states that she had chemo again on 12/28/16. Tonight she developed fever 101 and contacted her oncologist, Dr. King who recommended evaluation in the ED. She states that she feels fatigued. Had one episode of diarrhea yesterday. Complains of nausea without vomiting. Complains of Mild headache without neck pain or stiffness. Denies sore throat, chest pain, cough, SOB, abdominal Pain, tenderness or drainage at the port site. Blood cultures have been obtained in the emergency department. Influenza is negative. Urinalysis is unremarkable. Her white blood cell count is 4.6, hemoglobin 9.7, platelets 22, creatinine 2. Heart rate was initially 105-117 in the ED but has improved with IV fluids and is currently in 80s to 90s. She had a blood pressure of 70/42 with mean arterial pressure of 51. She received 2 L normal saline bolus in the ED and subsequent mean arterial pressure has been 65-84. She has voided in the ED. Lactic acid is normal. She received vancomycin and cefepime in the ED. Review of Systems Constitutional: COMPLAINS OF: Fever Past Family Social History Allergies: Coded Allergies: No Known Allergies (Unverified , 12/30/16) Past Medical History CLL diagnosed 1989 HTN but was taken off of losartan ~ 10 days ago because BP was low. HLD Type II DM Hypothyroidism Chronic anemia CKD Right eye macular degeneration Atrial fibrillation (on aspirin) Past Surgical History D&C Appendectomy at age 18 Left chest port 12/24/16 (Dr. Yao) Colonoscopy 2014 Reported Medications Allopurinol 100 mg by mouth daily Metoprolol 25 mg by mouth daily Metformin 500 mg by mouth twice a day Crestor 10 mg by mouth daily at bedtime Lasix 20 mg by mouth daily as needed for edema Levaquin 250 g by mouth daily LEvothyroxine 75 g by mouth daily Family History She states that 2 of her sisters of cancer. One of lung cancer and the other one she was uncertain what type of cancer it was. Social History She smokes half pack of cigarettes per day between age 18 and 50. Denies use of alcohol or illicit drugs She is Physical Exam Vital Signs Vital Signs Date Time Temp Pulse Resp B/P Pulse Ox O2 Delivery O2 Flow Rate FiO2 12/31/16 00:00 100.2 90 16 89/54 99 12/31/16 00:00 90 12/30/16 21:40 97.8 98 16 85/56 98 Nasal Cannula 2 12/30/16 21:30 98.7 112 16 102/75 98 Nasal Cannula 2 12/30/16 19:24 108 16 98 Nasal Cannula 1 12/30/16 19:24 108 16 78/58 98 Nasal Cannula 1 12/30/16 18:54 117 18 93/54 97 Nasal Cannula 2 12/30/16 18:30 97 Nasal Cannula 2 12/30/16 18:29 105 18 84/48 89 Nasal Cannula 2 12/30/16 17:39 99.2 114 18 87/51 95 Room Air 12/30/16 17:24 97 Room Air 12/30/16 16:48 99.4 101 18 70/42 95 Physical Exam Temp 100.2, pulse 87 (Atrial fibrillation on the monitor), blood pressure 93/50 with mean arterial pressure of 70 sats 98% on 2 L nasal cannula GENERAL: Well-nourished, well-developed patient who is sitting up in the [facility] bed , pleasant, conversant. SKIN: Warm and dry, appears well perfused. HEAD: Atraumatic. Normocephalic. EYES: Pupils equal and round. No scleral icterus. No injection or drainage. ENT: No nasal bleeding or discharge. Mucous membranes pink and moist. No thrush or oral lesions noted NECK: Trachea midline. No JVD. No meningismus CARDIOVASCULAR: Irregularly irregular with rate in the 80s on the monitor. No murmurs rubs or gallops. RESPIRATORY: Breathing comfortably with no accessory muscle use. Clear to auscultation. Breath sounds equal bilaterally. Sats 9899% on 2 L nasal cannula. GASTROINTESTINAL: Abdomen soft, non-tender, no rebound or guarding, nondistended. Bowel sounds are present. MUSCULOSKELETAL: Extremities without clubbing, cyanosis, or edema. No obvious deformities. VASC: L port accessed. No erythema or drainage NEUROLOGICAL: Awake and alert, oriented 4. No obvious cranial nerve deficits. Motor grossly within normal limits. Normal speech. Laboratory Laboratory Tests Test 12/30/16 12/30/16 12/30/16 12/30/16 17:10 17:17 18:08 18:40 White Blood Count 4.6 Red Blood Count 3.71 Hemoglobin 9.7 Hematocrit 29.4 Mean Corpuscular Volume 79.4 Mean Corpuscular Hemoglobin 26.1 Mean Corpuscular Hemoglobin 32.9 Concent Red Cell Distribution Width 19.8 Platelet Count 22 Mean Platelet Volume 10.9 Neutrophils (%) (Auto) 78.8 Lymphocytes (%) (Auto) 16.8 Monocytes (%) (Auto) 4.1 Eosinophils (%) (Auto) 0.1 Basophils (%) (Auto) 0.2 Neutrophils # (Auto) 3.6 Lymphocytes # (Auto) 0.8 Monocytes # (Auto) 0.2 Eosinophils # (Auto) 0.0 Basophils # (Auto) 0.0 CBC Comment AUTO DIFF Differential Comment AUTO DIFF CONFIRMED Ovalocytes 2+ [place] Cells 1+ Crenated Cell 2+ Keratocytes 1+ Prothrombin Time 12.7 Prothromb Time International 1.1 Ratio Activated Partial 29.6 Thromboplast Time Sodium Level 135 Potassium Level 3.3 Chloride Level 99 Carbon Dioxide Level 24.8 Anion Gap 11 Blood Urea Nitrogen 38 Creatinine 2.00 Estimat Glomerular Filtration 24 Rate Random Glucose 261 Calcium Level 7.7 Phosphorus Level 3.2 Magnesium Level 2.0 Total Bilirubin 2.3 Aspartate Amino Transf 83 (AST/SGOT) Alanine Aminotransferase 57 (ALT/SGPT) Alkaline Phosphatase 62 Total Creatine Kinase 21 Troponin I 0.02 Total Protein 5.5 Albumin 2.7 Lactic Acid Level 2.0 Urine Color YELLOW Urine Turbidity CLOUDY Urine pH 5.5 Urine Specific [place] 1.018 Urine Protein 100 Urine Glucose (UA) 250 Urine Ketones NEG Urine Occult Blood MOD Urine Nitrite NEG Urine Bilirubin NEG Urine Leukocyte Esterase NEG Urine Amorphous Sediment FEW Urine Mucus FEW Microscopic Urinalysis Comment CATH-CULT NOT IND Blood Bank Comment Date/Time Procedure Status Source Growth 12/30/16 17:18 Influenza Types A,B Antigen (SUJEY) - Final Complete Nasal Aspirate NEGATIVE FOR FLU A AND B ANTIGEN.... 12/30/16 17:18 Aerobic Blood Culture Received Blood Peripheral Pending 12/30/16 17:18 Anaerobic Blood Culture Received Blood Peripheral Pending Result Diagram: 12/30/16 1710 12/30/16 1710 Assessment and Plan Assessment and Plan NEURO: Tylenol as needed for mild pain. Lortab as needed for moderate pain. Morphine when necessary for breakthrough pain. RESP: Nasal cannula wean as tolerated. Chest x-ray 12/30/16negative CV: Atrial fibrillation Prior history of hypertension Currently rate controlled. Hold metoprolol due to hypotension. Hold aspirin due to severe thrombocytopenia GI: 1800-calorie ADA diet FEN/RENAL: MATILDA overlying CKD stage III Tumor lysis syndrome Hypokalemia Hypocalcemia Check uric acid. Continue allopurinol 100 mg po daily. Monitor intake and output. Replace electrolytes as needed. She is voiding. Give potassium chloride 20 mEq IV. Calcium gluconate 1 g IV ID: Fever Left chest port in situ. Follow-up blood cultures 2 sets. Follow up urine culture Influenza screen negative Continue Empiric coverage for sepsis with cefepime and vancomycin. HEME: CLL Thrombocytopenia Monitor CBC Consult oncology (Patient known to Dr. King) Chemotherapy with obinutuzumab, last dose 12/28/16 ENDO: Type 2 diabetes mellitus Hold metformin Low-dose insulin sliding scale ACh S Hypothyroidism TSH is normal 12/22/16. Continue Synthroid 75 g by mouth daily PROPH: SCDs for DVT prophylaxis. Hold on pharmacologic DVT prophylaxis due to thrombocytopenia ACCESS: L chest port accessed. Patient states she is agreeable to intubation if it were needed for respiratory failure. She wishes CODE STATUS to be alternate code intubation only as she states that if cardiac arrest that she wishes "to pass naturally without CPR". Level III H&P Addendum: I was called to the bedside as the patient was tachycardic in 130s and systolic blood pressure in 80s. Patient was given 1 L normal saline bolus without much response. Orders given to start vasopressin at 0.04 international units, a stat CBC done showed a hemoglobin drop from 9.7-7 without obvious bleeding. 2 units of PRBC stat ordered. Will discuss with hematology oncology. Also consult infectious disease. Patient reevaluated multiple times with additional CCT 30 min Azucena Alatorre MD Dec 31, 2016 03:00 Sherrie Vincent MD Dec 31, 2016 11:49
[2016-12-31] MEDS ORDERED: Vancomycin Consult Pharmacy 1 EA OTHER SCH (03:15)
[2016-12-31] MEDS ORDERED: MISCELLANEOUS NURSING INFORMATION XX SCH (03:30)
[2016-12-31] MEDS ORDERED: ONDANSETRON HCL 4 MG/2 ML VIAL IV PRN (03:30)
[2016-12-31] MEDS ORDERED: MORPHINE SULFATE 4 MG/ML INJ IV PRN (03:30)
[2016-12-31] MEDS ORDERED: CHLORHEXIDINE GLUCONATE 2 % 1 PACK (2 CLOTHS) TOP PRN (03:30)
[2016-12-31] MEDS ORDERED: GLUCAGON 1 MG/ML VIAL OTHER PRN (03:30)
[2016-12-31] MEDS ORDERED: ACETAMINOPHEN/HYDROcodone 325 MG/5 MG TAB PO PRN (03:30)
[2016-12-31] MEDS ORDERED: DEXTROSE 50% IN WATER 50 ML VIAL(D50) IV PUSH PRN (03:30)
[2016-12-31] MEDS: CHLORHEXIDINE GLUCONATE 2 % 1 PACK (2 CLOTHS) TOP SCH (03:47)
[2016-12-31 04:28] LABS: URIC ACID 7.7 MG/DL (2.6-6.0)
[2016-12-31] MEDS: SODIUM CHLOR 0.9% 1000 ML INJ 1,000 ML IV SCH ×3 (06:00→21:58)
[2016-12-31] MEDS: INSULIN ASPART SUPPLEMENTAL SCALE SQ SCH ×4 (06:05→21:00)
[2016-12-31] MEDS: LEVOTHYROXINE SODIUM 75 MCG TAB PO SCH (06:05)
[2016-12-31] MEDS: ACETAMINOPHEN 325 MG TAB PO PRN (06:06)
[2016-12-31] MEDS: ALLOPURINOL 100 MG TAB PO SCH (08:43)
[2016-12-31] MEDS: DOCUSATE SODIUM 100 MG CAP PO SCH ×2 (08:43→21:00)
[2016-12-31] MEDS: PANTOPRAZOLE SODIUM 40 MG VIAL IV SCH (08:44)
--- NOTE | 2016-12-31 09:19 | MB ---
cc: SHERRILL ARBOLEDA MD, RUBY ANNE E. M.D. DATE OF CONSULTATION 12/31/2016 DATE OF [address] Sherrill Arboleda CHIEF COMPLAINT Dr. Arboleda requested consultation for Mrs. Chavez regarding fevers, tumor lysis syndrome associated with treatment of CLL. HISTORY OF PRESENT ILLNESS Mrs. Chavez is a pleasant 86-year-old woman initially diagnosed CLL in 1989. She received Leukeran as treatment in [id number]. Leukeran was discontinued to the cytopenias. However after stopping Leukeran, her white count has doubled over a short period of time to a white count of greater than 200,000 in November. She was confirmed to have CLL infiltrating the bone marrow. Ultimately, it was decided she needs treatment. Her first dose of obinutuzumab was administered. On a small dose of 100 mg, her course was complicated by acute tumor lysis syndrome the following day with renal function worsening. Uric acid increased, calcium decreased, potassium decreased, however it resulted in a significant response of her white count decreasing to 32,000. She was supported with IV fluid hydration during the last admission. She met with Dr. Yao who placed an [id number] during the hospitalization prior to being discharged home. On December 28, she resumed her treatment for the CLL. She had recovered. Her course was complicated by some tachycardia from her atrial fibrillation during the infusion. Dr. Guadarrama's office, her cafeteria monitor was consulted. She was given an extra dose of metoprolol. We were able to administer chemotherapy uneventfully well. She had a follow up with Dr. Guadarrama the day prior to her admission. On the day of admission she reported fevers to the clinic. She was feeling weak. She came into clinic for blood cultures and was found to be significantly hypertensive and tachycardiac and was referred to the emergency room at [place]. Her CBC shows a response with a white blood cell count of 4.6, hemoglobin 9.7, platelet count 22,000. She has atrial fibrillation, rapid ventricular response and hypotensive. She was transferred to the ICU. Her BUN and creatinine are increased. Her uric acid again increased. LDH is elevated. Liver function is mildly elevated PT is mildly prolonged at 12.7 seconds. She was started antibiotic therapy promptly with the port considered suspect as the etiology of the fever. Mrs. Chavez reports being fatigued at home. She denies any sick contact. She had blood cultures drawn from 12/30, however is still negative the following day. She still had a fever at 03:00 a.m. of 101.7. Her heart rate is around 100. Her blood pressure is still low with systolic less than 100, but is feeling better after her fever breaking. She appears to have defervesced. She is able to eat breakfast in the morning. She requests that I talk to her son and explain her situation. The rest of her review of systems is negative. PAST MEDICAL HISTORY 1. Chronic lymphocytic leukemia 2. Arthritis 3. Atrial fibrillation 4. Diabetes type 2 5. Hypercholesterolemia 6. Hypertension 7. Hypothyroidism 8. Chronic renal insufficiency 9. History of tumor lysis PAST SURGICAL HISTORY 1. Port placement 2. Appendectomy 3. Colonoscopy FAMILY HISTORY Mother at age 40 with hypertension. Father age 86 from lung cancer. SOCIAL HISTORY She is . 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 She has a brother, Kervin moe, son Yoel in [place]. She denies any tobacco, alcohol or illicit drug use at present. She was a previous smoker. ALLERGIES PENICILLIN CURRENT MEDICATIONS 1. Cefepime 2. Allopurinol 3. Protonix 4. Colace 5. Levothyroxine 6. Chlorhexidine 7. Glucagon 8. Lipitor 9. Vancomycin PHYSICAL EXAMINATION Temperature 101.7 heart rate 99, respiratory rate 19, blood pressure 98/49, saturation 96% three liters nasal cannula. GENERAL: Ms. Chavez is a well-developed, well-nourished elderly woman who looks her stated age. She looks tired and appears to have just defervesced and is sweaty. HEAD, EYES, EARS, NOSE, AND THROAT: Her pupils are round and reactive to light and accommodation. Oropharynx is clear. NECK: Supple. LUNGS: Clear to auscultation. CARDIOVASCULAR: Exam reveals a tachycardia and regular rhythm. ABDOMEN: Benign. EXTREMITIES: Lower extremities with trace ankle edema. 2+ pulses. NEUROLOGIC: Exam is nonfocal. LABORATORY DATA Significant for a white blood cell count of 4.6, hemoglobin of 9.7, platelet count of 22,000. ASSESSMENT/PLAN Ms. Chavez is an 86-year-old woman with multiple medical problems described above. She is seen in hematology for chronic lymphocytic leukemia finally requiring therapy due to progressive disease after Leukeran. She was treated with obinutuzumab with an excellent response and complications of acute tumor lysis. She had an increase in her creatinine, decreased in calcium, increase in uric acid and LDH. The last symptom was mild and required only IV fluid hydration support. Her uric acid is only slightly elevated. We discussed this with Dr. Arboleda and elected to continue allopurinol and support. She is getting IV fluid hydration. No transfusion is needed at present. Her hemoglobin is 9.7. Thrombocytopenia suspect is related to her sepsis. We will give supportive transfusion if necessary. We will monitor her counts. Her white count has decreased significantly. She, however, is not neutropenic. I concur with antibiotic therapy empirically and to cover for the possible work related infection. We will follow the blood cultures. Fever will be monitored. Son was called at her request and the above explained at length. Their questions were answered. Continued support in the ICU as planned. Allopurinol for the increased uric acid which will be monitored, as well as her LDH. Her questions were answered to her satisfaction. MD GABRIELE Irving/MANJULA /8:45 AM /9:02 AM
[2016-12-31 10:44] LABS: AUTOMATED NEUTROPHIL # 2.8 TH/MM3 (1.8-7.7); BASOPHIL % 0.2 % (0.0-2.0); HEMATOCRIT 21.1 % (35.0-46.0); LYMPH % 18.5 % (9.0-44.0); LYMPHOCYTE # 0.7 TH/MM3 (1.0-4.8); MEAN CELL VOLUME 78.7 FL (80.0-100.0); MEAN CORPUSCULAR HEMOGLOBIN 26.3 PG (27.0-34.0); MEAN CORPUSCULAR HGB CONC 33.4 % (32.0-36.0); MONO % 5.5 % (0.0-8.0); NEUT % 75.8 % (16.0-70.0); PLATELET COUNT 24 TH/MM3 (150-450); RED BLOOD COUNT 2.68 MIL/MM3 (4.00-5.30); RED CELL DISTRIBUTION WIDTH 19.6 % (11.6-17.2); WHITE BLOOD COUNT 3.6 TH/MM3 (4.0-11.0)
[2016-12-31 10:51] LABS: HEMO FLAGS AUTO DIFF
[2016-12-31 11:10] LABS: BICARBONATE 24.3 MEQ/L (21.0-32.0); CALCIUM-PROTEIN CORRECTED 8.8 MG/DL (8.5-10.1); POTASSIUM 3.4 MEQ/L (3.5-5.1); TOTAL BILIRUBIN ADULT 3.3 MG/DL (0.2-1.0)
[2016-12-31] MEDS ORDERED: SODIUM CHLOR 0.9% 1000 ML INJ 1,000 ML IV SCH (11:15)
[2016-12-31 11:25] LABS: ACANTHOCYTES OCC (NORMAL); KERATOCYTES OCC (NORMAL)
[2016-12-31 11:26] LABS: OVALOCYTES 1+ (NORMAL); PLATELET ESTIMATE SMEAR LOW (NORMAL); PLATELET MORPHOLOGY NORMAL (NORMAL); SCAN/DIFF AUTO DIFF CONFIRMED
[2016-12-31] MEDS: VASOPRESSIN 40 U/100 ML D5W Titrate, Post Cardiac Surgery IV SCH ×2 (12:20)
--- NOTE | 2016-12-31 15:47 | EKG ---
Date Performed: 12/30/2016 Time Performed: 17:14:58 PTAGE: 86 years EKG: Atrial fibrillation with rapid ventricular response Leftward axis Poor R wave progression - probable normal variant Extensive ST-T changes may be due to myocardial ischemia When compared to pr evious tracing, atrial fibrillation with rapid Ventricular response has replaced Sinus rhythm . Abnormal ECG PREVIOUS TRACING : 12/22/2016 12.18 DOCTOR: Yoel Cortez Interpretating Date/Time 12/31/2016 15:45:03
[2016-12-31] MEDS ORDERED: CEFEPIME INJ 2,000 MG in SODIUM CHLORIDE 0.9% INJ 100 ML IV SCH (17:00)
--- NOTE | 2016-12-31 17:51 | MB ---
cc: MARIAMA DORSEY MD DATE OF CONSULTATION 12/31/[address] Vincent REASON FOR CONSULTATION HISTORY OF PRESENT ILLNESS This is an 86-year-old white female who has CLL. The patient was admitted to the hospital because of fever. The patient was seen in the oncology clinic on the day of admission and she was noted to be weak and tachycardiac. She was sent to the emergency department for evaluation. The patient tells me that she was having fever and chills on the day prior. She was given chemotherapy for CLL on December 28 using obinutuzumab. The patient was evaluated in the emergency department and blood cultures were taken and she was admitted to the hospital and she was started on antibiotics. She also had blood cultures taken on 12/28 as well. Follow up of the blood cultures have no growth to date. She is currently laying in bed and is in no acute distress. She states that she feels better than yesterday. She did have a temperature max 101.7 degrees earlier today. Her white blood cell count is 3.6 today and a platelet count is 24,000. She denies joint aches or pains, back pain, shortness of breath, cough, headache, dysuria, chest pain or chest discomfort. A chest x-ray from 12/30 shows no acute disease. Urinalysis was unremarkable and a urinary culture was not performed. During the recent hospitalization in December, the patient had urine culture which came back with Group B beta strep with less than 50,000 colonies. Blood cultures were negative. She was discharged from the hospital on December 25. She was due to continue Levaquin by mouth for seven days. PAST MEDICAL HISTORY 1. History of CLL. 2. Hypertension 3. Hypercholesterolemia 4. Macular degeneration. 5. Diabetes mellitus type 2. 6. Appendectomy, 7. Atrial fibrillation. ALLERGIES NO KNOWN DRUG ALLERGIES. MEDICATIONS 1. Cefepime 2. Vasopressin. 3. Allopurinol. 4. Protonix. 5. Colace. 6. Insulin. 7. Synthroid, 8. Lipitor. SOCIAL HISTORY No tobacco, no alcohol. No illicit drugs. REVIEW OF SYSTEMS Pertinent as mentioned history of present illness. Otherwise negative on 10-point review. PHYSICAL EXAMINATION GENERAL: This is a slender female in no acute distress. She is awake and alert. VITAL SIGNS: temperature of 98.2, BP 102/56, heart rate 119, respirations 16. HEENT: Head is atraumatic. Extraocular movements grossly intact, pupils reactive to light. No icterus. Oropharynx no visible lesions. NECK: Supple. No adenopathy. LUNGS: Decreased clear breath sounds HEART: Irregular rate and rhythm. No murmurs, rubs or gallops. ABDOMEN: Bowel sounds present, soft, nontender. RECTAL: Not performed. EXTREMITIES: No clubbing or cyanosis. 1+ edema at the ankles bilaterally. SKIN: No diffuse rash. NEUROLOGIC: Patient is alert and oriented. No gross focal findings. PSYCHIATRIC: The patient calm and cooperative. LABORATORY DATA WBC 3.6, platelets 24,000, hemoglobin 7.0, creatinine 1.55, BUN 37, sodium 140. IMPRESSION 1. Fever 2. CLL 3. Pancytopenia following chemotherapy 4. Sepsis. RECOMMENDATIONS 1. Continue cefepime 2. Monitor renal function 3. Obtain vancomycin level to determine further vancomycin dosing 4. Monitor temperature 5. Monitor blood cultures Thank you for this consultation. The patient's progress will be monitored and further recommendations will be given on followup. Mariama Dorsey MD FD/ /3:39 PM /5:34 PM MTDD
[2016-12-31 23:58] LABS: HEMATOCRIT 24.4 % (35.0-46.0)
[2017-01-01] VITALS (13 sets, daily range): BP systolic 88–113; BP diastolic 54–66; PULSE 96–130; RESP 16–22; TEMP 97.4–98.5; O2SAT 95–98
[2017-01-01] MEDS: SODIUM CHLOR 0.9% 1000 ML INJ 1,000 ML IV SCH ×2 (03:57→14:52)
[2017-01-01] MEDS: VASOPRESSIN 40 U/100 ML D5W Titrate, Post Cardiac Surgery IV SCH ×2 (03:57)
[2017-01-01] MEDS: CHLORHEXIDINE GLUCONATE 2 % 1 PACK (2 CLOTHS) TOP SCH (03:58)
[2017-01-01 05:22] LABS: AUTOMATED NEUTROPHIL # 2.1 TH/MM3 (1.8-7.7); BASOPHIL % 0.2 % (0.0-2.0); HEMATOCRIT 23.2 % (35.0-46.0); LYMPHOCYTE # 0.7 TH/MM3 (1.0-4.8); MEAN CORPUSCULAR HEMOGLOBIN 27.5 PG (27.0-34.0); MEAN CORPUSCULAR HGB CONC 34.4 % (32.0-36.0); NEUT % 72.8 % (16.0-70.0); RED CELL DISTRIBUTION WIDTH 18.9 % (11.6-17.2); WHITE BLOOD COUNT 2.9 TH/MM3 (4.0-11.0)
[2017-01-01 05:25] LABS: HEMO FLAGS AUTO DIFF
[2017-01-01 05:27] LABS: PLATELET COUNT 19 TH/MM3 (150-450)
[2017-01-01 05:38] LABS: BICARBONATE 22.7 MEQ/L (21.0-32.0); CALCIUM-PROTEIN CORRECTED 8.8 MG/DL (8.5-10.1); POTASSIUM 3.8 MEQ/L (3.5-5.1)
--- NOTE | 2017-01-01 05:55 | RADRPT ---
EXAM DATE/TIME: 01/01/2017 03:59 [facility] COMPARISON: CHEST SINGLE AP, December 30, 2016, 17:20. INDICATIONS : Evaluate for pneumonia. MEDICAL HISTORY : Leukemia. SURGICAL HISTORY : Port placement. ENCOUNTER: Subsequent ACUITY: 1 week PAIN SCORE: Non-responsive. LOCATION: Bilateral chest FINDINGS: Portable AP view of the chest demonstrates a normal size cardiac silhouette. Left chest wall Infuse-a -Port remains present. There is opacity at the left lung base. No pleural effusion or pneumothorax is appreciated. Bones demonstrate no acute finding. CONCLUSION: Mild opacity at the left lung base representing either atelectasis or consolidation. Carlton Chavis MD on January 01, 2017 at 5:53 Board Certified Radiologist. This report was verified electronically.
[2017-01-01] MEDS: LEVOTHYROXINE SODIUM 75 MCG TAB PO SCH (06:06)
[2017-01-01] MEDS: INSULIN ASPART SUPPLEMENTAL SCALE SQ SCH ×4 (06:07→20:53)
--- NOTE | 2017-01-01 07:25 | HHI.CCPN ---
Subjective Remarks/Hospital Course 86 yo F with PMH of CLL originally diagnosed in 1998, diabetes mellitus, hypercholesterolemia, hypothyroidism, CKD. She had been treated with Leukoveran which was discontinued about 8 months ago. She had progression of disease consisting of doubling of WBC, presence of thrombocytopenia and anemia and therefore was started on chemotherapy with obinutuzumab (given initial test dose 12/21/16). She developed hypotension and hypoxia following chemo and was admitted to [facility] on 12/22 and found to have abrupt response in therapy. She developed tumor lysis syndrome. She was discharged on levaquin. She states that she had chemo again on 12/28/16. Tonight she developed fever 101 and contacted her oncologist, Dr. King who recommended evaluation in the ED. She states that she feels fatigued. Had one episode of diarrhea yesterday. Complains of nausea without vomiting. Complains of Mild headache without neck pain or stiffness. Denies sore throat, chest pain, cough, SOB, abdominal Pain, tenderness or drainage at the port site. Blood cultures have been obtained in the emergency department. Influenza is negative. Urinalysis is unremarkable. Her white blood cell count is 4.6, hemoglobin 9.7, platelets 22, creatinine 2. Heart rate was initially 105-117 in the ED but has improved with IV fluids and is currently in 80s to 90s. She had a blood pressure of 70/42 with mean arterial pressure of 51. She received 2 L normal saline bolus in the ED and subsequent mean arterial pressure has been 65-84. She has voided in the ED. Lactic acid is normal. She received vancomycin and cefepime in the ED. 01/01 Patient is lying in be din NAD. Afebrile. On Vasopressin 0.04 mics. Afebrile. s/p transfusion 2u PRBC yesterday for Hgb 7.0 Hgb 8.0 this morning with PLT 19. Objective Vital Signs Date Time Temp Pulse Resp B/P Pulse Ox O2 Delivery O2 Flow Rate FiO2 01/01/17 06:00 120 01/01/17 04:00 98.1 16 107/54 98 12/31/16 07:40 Nasal Cannula 3.00 Intake and Output 12/31/16 12/31/16 01/01/17 08:00 16:00 00:00 Intake Total 1998 ml 2250 ml Output Total 200 ml Balance 1998 ml 2050 ml Result Diagram: 01/01/17 0320 01/01/17 0320 Other Results Laboratory Tests Test 12/31/16 12/31/16 12/31/16 01/01/17 10:21 11:50 23:10 03:20 White Blood Count 3.6 TH/MM3 2.9 TH/MM3 Red Blood Count 2.68 MIL/MM3 2.90 MIL/MM3 Hemoglobin 7.0 GM/DL 8.1 GM/DL 8.0 GM/DL Hematocrit 21.1 % 24.4 % 23.2 % Mean Corpuscular Volume 78.7 FL 80.0 FL Mean Corpuscular Hemoglobin 26.3 PG 27.5 PG Mean Corpuscular Hemoglobin 33.4 % 34.4 % Concent Red Cell Distribution Width 19.6 % 18.9 % Platelet Count 24 TH/MM3 19 TH/MM3 Mean Platelet Volume 9.5 FL 9.7 FL Neutrophils (%) (Auto) 75.8 % 72.8 % Lymphocytes (%) (Auto) 18.5 % 23.0 % Monocytes (%) (Auto) 5.5 % 4.0 % Eosinophils (%) (Auto) 0.0 % 0.0 % Basophils (%) (Auto) 0.2 % 0.2 % Neutrophils # (Auto) 2.8 TH/MM3 2.1 TH/MM3 Lymphocytes # (Auto) 0.7 TH/MM3 0.7 TH/MM3 Monocytes # (Auto) 0.2 TH/MM3 0.1 TH/MM3 Eosinophils # (Auto) 0.0 TH/MM3 0.0 TH/MM3 Basophils # (Auto) 0.0 TH/MM3 0.0 TH/MM3 CBC Comment AUTO DIFF AUTO DIFF Differential Comment AUTO DIFF CONFIRMED Platelet Estimate LOW Platelet Morphology Comment NORMAL Ovalocytes 1+ Acanthocytes OCC Keratocytes OCC Sodium Level 140 MEQ/L 142 MEQ/L Potassium Level 3.4 MEQ/L 3.8 MEQ/L Chloride Level 108 MEQ/L 111 MEQ/L Carbon Dioxide Level 24.3 MEQ/L 22.7 MEQ/L Anion Gap 8 MEQ/L 8 MEQ/L Blood Urea Nitrogen 37 MG/DL 36 MG/DL Creatinine 1.55 MG/DL 1.29 MG/DL Estimat Glomerular Filtration 32 ML/MIN 39 ML/MIN Rate Random Glucose 200 MG/DL 192 MG/DL Calcium Level 7.3 MG/DL 7.2 MG/DL Protein Corrected Calcium 8.8 MG/DL 8.8 MG/DL Total Bilirubin 3.3 MG/DL 2.0 MG/DL Aspartate Amino Transf 69 U/L 85 U/L (AST/SGOT) Alanine Aminotransferase 52 U/L 64 U/L (ALT/SGPT) Alkaline Phosphatase 49 U/L 52 U/L Total Protein 4.5 GM/DL 4.3 GM/DL Albumin 2.2 GM/DL 1.9 GM/DL Blood Type A POSITIVE Antibody Screen NEGATIVE Crossmatch Leukocyte-Reduced Red Blood Cells Blood Bank Comment Phosphorus Level 3.1 MG/DL Magnesium Level 2.0 MG/DL Random Vancomycin Level 3.8 COMMENT Imaging Last Impressions Chest X-Ray 01/01/17 0000 Signed Impressions: Service Date/Time: Sunday, January 01, 2017 03:59 - CONCLUSION: Mild opacity at the left lung base representing either atelectasis or consolidation. Carlton Chavis MD Objective Remarks GENERAL: Patient is 86 yo lying in be din NAD SKIN: Warm and dry. HEAD: Normocephalic. EYES: No scleral icterus. No injection or drainage. NECK: Supple, trachea midline. No JVD or lymphadenopathy. CARDIOVASCULAR: Tachycardic without murmurs, gallops, or rubs. RESPIRATORY: Breath sounds equal bilaterally. No accessory muscle use. GASTROINTESTINAL: Abdomen soft, non-tender, nondistended. MUSCULOSKELETAL: No cyanosis, or edema. BACK: Nontender without obvious deformity. No CVA tenderness. Neuro: Awake and alert A/P Assessment and Plan NEURO: Tylenol as needed for mild pain. Lortab as needed for moderate pain. Morphine when necessary for breakthrough pain. RESP: Continue with oxygen keep sat >92% Bronchodilators CXR 01/01 mild opacity in left lung base atelectasis vs consolidation CV: Atrial fibrillation Prior history of hypertension Wean off vasopressin monitor HR and BP keep MAP>65mmHg GI: On PO diet Monitor LFT's, check US liver FEN/RENAL: MATILDA overlying CKD stage III Tumor lysis syndrome Continue allopurinol 100 mg po daily. Monitor renal function, I/O's, avoid nephrotoxins. Renal function improving with Cr: 1.29 today from 1.55 Decrease IVF NS@75ml/hr ID: s/p Fever Left chest port in situ. Influenza screen negative Continue Empiric coverage for sepsis with cefepime and vancomycin. ID is following- Dr. Thibodeaux. Monitor for signs of infections ( Fever, WBC) follow up on cxs HEME: CLL Thrombocytopenia Pancytopenia Monitor CBC. s/p transfusion 2U PRBC yesterday Hgb 8.0 this morning with PLT count 19. Oncology- Dr. King. Further transfusion per Heme Chemotherapy with obinutuzumab, last dose 12/28/16 ENDO: Type 2 diabetes mellitus Hypothyroidism Low-dose insulin sliding scale ACh S TSH is normal 12/22/16. Continue Synthroid 75 g by mouth daily PROPH: SCDs for DVT prophylaxis. Hold on pharmacologic DVT prophylaxis due to thrombocytopenia ACCESS: L chest port accessed. Level 3 Amol Gordon MD Jan 01, 2017 07:25
[2017-01-01 07:32] LABS: ACANTHOCYTES OCC (NORMAL); OVALOCYTES 1+ (NORMAL)
[2017-01-01 07:33] LABS: PLATELET ESTIMATE SMEAR RARE (NORMAL); PLATELET MORPHOLOGY NORMAL (NORMAL); SCAN/DIFF AUTO DIFF CONFIRMED
[2017-01-01] MEDS: DOCUSATE SODIUM 100 MG CAP PO SCH ×2 (09:00→20:57)
[2017-01-01] MEDS: ALLOPURINOL 100 MG TAB PO SCH (09:11)
[2017-01-01] MEDS: PANTOPRAZOLE SODIUM 40 MG VIAL IV SCH (09:11)
--- NOTE | 2017-01-01 10:11 | RADRPT ---
EXAM DATE/TIME: 01/01/2017 08:32 [place] COMPARISON: No previous studies available for comparison. EXTERNAL COMPARISON : [facility], CT Abdomen, December 11, 2016POI, Ultrasound Kidney, 11/16/16. INDICATIONS : Increased lab values. MEDICAL HISTORY : Hypertension. Hypercholesterolemia. Hypothyroidism. Diabetic. Chemotheraphy. CKD. Chronic lymphocy tic leukemia. SURGICAL HISTORY : Appendectomy. D&C. Left chest port. ENCOUNTER: Initial ACUITY: 1 day PAIN SCORE: 0/10 LOCATION: Bilateral upper quadrant MEASUREMENTS: LIVER: 21.5 cm length COMMON DUCT: 5 mm RIGHT KIDNEY: 11.4 x 5.6 x 4.0 cm SPLEEN: 16.1 cm length FINDINGS: LIVER: Slightly coarsened echotexture with no focal mass lesion or intrahepatic biliary duct dilatation. Asc ites is identified adjacent to the liver. Small right pleural effusion identified COMMON DUCT: No intraluminal mass or stone visualized. GALLBLADDER: Large, echogenic stone in the gallbladder neck. Gallbladder is decompressed with some mural thickenin g. Small amount of pericholecystic fluid PANCREAS: The visualized portions are within normal limits. RIGHT KIDNEY: No hydronephrosis, stone or mass. Benign-appearing 1.7 x 1.8 x 2.1 cm cyst in the lower pole SPLEEN: Enlarged with an apparent 1.6 x 1.8 x 1.5 cm cystic structure in the midpole. Small left pleural effu davis identified. CONCLUSION: 1. Large gallstone in the gallbladder neck. The gallbladder is decompressed with some mural thickenin g and pericholecystic fluid. 2. Ascites and bilateral small pleural effusions. 3. Splenomegaly. Liver also appears somewhat prominent with coarsened echotexture. 4. Benign-appearing right renal and splenic parenchymal cysts. Jeremy Mullen MD on January 01, 2017 at 9:55 Board Certified Radiologist. This report was verified electronically.
[2017-01-01] MEDS: VANCOMYCIN INJ 1,250 MG in SODIUM CHLOR 0.9% 250 ML INJ 250 ML IV SCH (10:38)
[2017-01-01] MEDS ORDERED: METOPROLOL TARTRATE 5 MG/5 ML VIAL IV PUSH ONE ×2 (12:00→22:45)
[2017-01-01] MEDS ORDERED: FUROSEMIDE 20 MG/2 ML VIAL IV PUSH ONE (12:00)
--- NOTE | 2017-01-01 12:38 | PD.ONC.PN ---
Subjective Subjective Remarks Afebrile overnight. Pt resting in bed in no distress. She states she feels quite comfortable. No complaints. Per RN no bleeding. Objective Data Date Time Temp Pulse Resp B/P Pulse Ox O2 Delivery O2 Flow Rate FiO2 01/01/17 10:00 99 01/01/17 08:00 97.4 114 20 105/62 97 01/01/17 08:00 114 01/01/17 07:35 96 Nasal Cannula 2.00 01/01/17 06:00 120 01/01/17 04:00 98.1 122 16 107/54 98 01/01/17 04:00 120 01/01/17 02:00 124 01/01/17 00:00 98.5 122 22 95/60 97 01/01/17 00:00 122 12/31/16 22:00 112 12/31/16 20:00 99.2 106 23 102/60 95 12/31/16 20:00 106 12/31/16 18:00 119 12/31/16 17:40 97.8 109 15 88/64 95 12/31/16 17:20 98.1 97 12 95/54 97 12/31/16 16:00 108 12/31/16 16:00 98.0 108 16 104/65 98 12/31/16 14:13 98.3 123 23 88/55 97 12/31/16 14:00 117 12/31/16 13:57 98.0 113 21 81/52 97 01/01/17 01/01/17 01/01/17 07:00 15:00 23:00 Intake Total 1502 ml Balance 1502 ml Result Diagram: 01/01/17 0320 01/01/17 0320 Laboratory Results Laboratory Tests Test 12/31/16 01/01/17 23:10 03:20 Hemoglobin 8.1 GM/DL 8.0 GM/DL Hematocrit 24.4 % 23.2 % White Blood Count 2.9 TH/MM3 Red Blood Count 2.90 MIL/MM3 Mean Corpuscular Volume 80.0 FL Mean Corpuscular Hemoglobin 27.5 PG Mean Corpuscular Hemoglobin 34.4 % Concent Red Cell Distribution Width 18.9 % Platelet Count 19 TH/MM3 Mean Platelet Volume 9.7 FL Neutrophils (%) (Auto) 72.8 % Lymphocytes (%) (Auto) 23.0 % Monocytes (%) (Auto) 4.0 % Eosinophils (%) (Auto) 0.0 % Basophils (%) (Auto) 0.2 % Neutrophils # (Auto) 2.1 TH/MM3 Lymphocytes # (Auto) 0.7 TH/MM3 Monocytes # (Auto) 0.1 TH/MM3 Eosinophils # (Auto) 0.0 TH/MM3 Basophils # (Auto) 0.0 TH/MM3 CBC Comment AUTO DIFF Differential Comment AUTO DIFF CONFIRMED Platelet Estimate RARE Platelet Morphology Comment NORMAL Ovalocytes 1+ Acanthocytes OCC Sodium Level 142 MEQ/L Potassium Level 3.8 MEQ/L Chloride Level 111 MEQ/L Carbon Dioxide Level 22.7 MEQ/L Anion Gap 8 MEQ/L Blood Urea Nitrogen 36 MG/DL Creatinine 1.29 MG/DL Estimat Glomerular Filtration 39 ML/MIN Rate Random Glucose 192 MG/DL Calcium Level 7.2 MG/DL Protein Corrected Calcium 8.8 MG/DL Phosphorus Level 3.1 MG/DL Magnesium Level 2.0 MG/DL Total Bilirubin 2.0 MG/DL Aspartate Amino Transf 85 U/L (AST/SGOT) Alanine Aminotransferase 64 U/L (ALT/SGPT) Alkaline Phosphatase 52 U/L Total Protein 4.3 GM/DL Albumin 1.9 GM/DL Random Vancomycin Level 3.8 COMMENT Culture Results Microbiology Date/Time Procedure Status Source Growth 12/30/16 17:10 Aerobic Blood Culture - Preliminary Resulted Blood Peripheral NO GROWTH IN 2 DAYS 12/30/16 17:10 Anaerobic Blood Culture - Preliminary Resulted Blood Peripheral NO GROWTH IN 2 DAYS 12/30/16 17:18 Aerobic Blood Culture - Preliminary Resulted Blood Peripheral NO GROWTH IN 2 DAYS 12/30/16 17:18 Anaerobic Blood Culture - Preliminary Resulted Blood Peripheral NO GROWTH IN 2 DAYS 12/30/16 17:18 Influenza Types A,B Antigen (SUJEY) - Final Complete Nasal Aspirate NEGATIVE FOR FLU A AND B ANTIGEN.... Imaging Studies Last 24 hours Impressions Liver Ultrasound 01/01/17 0000 Signed Impressions: Service Date/Time: Sunday, January 01, 2017 08:32 - CONCLUSION: 1. Large gallstone in the gallbladder neck. The gallbladder is decompressed with some mural thickening and pericholecystic fluid. 2. Ascites and bilateral small pleural effusions. 3. Splenomegaly. Liver also appears somewhat prominent with coarsened echotexture. 4. Benign-appearing right renal and splenic parenchymal cysts. Jeremy Mullen MD Chest X-Ray 01/01/17 0000 Signed Impressions: Service Date/Time: Sunday, January 01, 2017 03:59 - CONCLUSION: Mild opacity at the left lung base representing either atelectasis or consolidation. Carlton Chavis MD Administered Medications Medications (Trade) Dose Ordered Sig/Loretta Route PRN Reason Start Time Stop Time Status Last Admin Dose Admin Sodium Chloride (NS 1000 ml Inj) 1,000 ml @ 75 mls/hr [id number] IV 12/30/16 22:00 01/01/17 03:57 Allopurinol (Zyloprim) 100 mg DAILY PO 12/31/16 09:00 01/01/17 09:11 Levothyroxine Sodium 75 mcg 75 mcg DAILY@06 PO 12/31/16 06:00 01/01/17 06:06 Cefepime HCl/ Sodium Chloride (Maxipime Inj/NS Inj) 100 ml @ 200 mls/hr Q24H IV 12/31/16 17:00 12/31/16 16:35 Acetaminophen (Tylenol) 650 mg Q6H PRN PO PAIN 1-3 OR TEMP >101 12/31/16 03:30 12/31/16 06:06 Pantoprazole Sodium (Protonix Inj) 40 mg DAILY IV 12/31/16 09:00 01/01/17 09:11 Docusate Sodium (Colace) 100 mg BID PO 12/31/16 09:00 12/31/16 08:43 Chlorhexidine Gluconate 3 pack 3 pack Taper DAILY@04 TOP 12/31/16 04:00 12/27/17 03:59 01/01/17 03:58 Vasopressin 40 units/Dextrose 100 ml @ 0 mls/hr TITRATE IV 12/31/16 12:15 01/01/17 03:57 Vancomycin HCl/ Sodium Chloride (Vancomycin Inj/ NS 250 ml Inj) 262.5 ml @ 250 mls/hr Q24H IV 01/01/17 10:00 01/01/17 10:38 Objective Remarks GENERAL: Elderly female, lying in bed in no distress. SKIN: Warm and dry. No bleeding. HEAD: Normocephalic. EYES: No injection or drainage. NECK: Supple, trachea midline. CARDIOVASCULAR: +S1/S2. RN giving 2.5mg Lopressor IV at present. RESPIRATORY: Lungs with coarse crackles at bases. GASTROINTESTINAL: Abdomen soft, non-tender, nondistended. EXTREMITIES: No cyanosis. SCD's to BLE. NEUROLOGICAL: Normal speech. Moving all extremities. A&Ox3. Assessment/Plan Problem List: (1) Chronic lymphocytic leukemia Status: Acute Plan: -- Last treated with obinutuzumab on 12/28. Hx/Workup: Originally diagnosed with CLL in 1989. She was on Leukeran, however this has been discontinued. In November her white count was greater than 200K. She was confirmed to have CLL infiltrating the bone marrow. She received a small dose of 100mg obinutuzumab but unfortunately developed tumor lysis syndrome following this. (2) Sepsis Status: Acute Plan: -- On Vanco, Cefepime -- Monitor for fevers -- Blood cultures show no growth x 2 days. (3) Tumor lysis syndrome following antineoplastic drug therapy Status: Acute Plan: --100 mg Allopurinol daily -- Daily tumor lysis labs incl BMP, Mag, Phos. -- Continue IVF (4) Elevated liver enzymes Status: Acute Plan: -- US of the liver shows a gallstone in the gallbladder neck associated with mural thickening and pericholecystic fluid. -- Discussed with Dr. Smith. No need for intervention at this time. Repeat imaging next week. Assessment 86 y/o female with history of CLL admitted for fevers and pancytopenia. Plan 1. Discussed with Dr. Smith; there is no need for intervention of gallstone at this time. Repeat imaging next week. 2. Continue Abx per ID. 3. Daily labs for tumor lysis 4. Monitor for fevers; BC for temp greater than 100.5. 5. Monitor for bleeding. Attending Statement The exam, history, and the medical decision-making described in the above note were completed with the assistance of the mid-level provider. I reviewed and agree with the findings presented. I attest that I had a [id number] encounter with the patient on the same day, and personally performed and documented my assessment and findings in the medical record. Pt seen and examined. Feels like a million dollars, noted off pressors, HR still 120's, denies any symptoms from GS. No bleeding. No leg swelling, tries to move legs in bed. Discussed parameters for transfusion, pending CBC in AM, transfuse for platelet 15K. Problem Qualifiers (1) Sepsis: Qualified Code: A41.9 - Sepsis, due to unspecified organism Margaret Bush Jan 01, 2017 12:38 Ofelia King MD Jan 01, 2017 20:31
--- NOTE | 2017-01-01 13:02 | HHI.IDPN ---
Note Infectious Disease Note Patient feels okay. Off vasopressin and BP stable. Has Afib with rapid response. Denies chills, nausea, abdominal pain. Abdominal ultrasound shows stone at the gallbladder neck. Afebrile. Patient with CLL. Admitted to the hospital because of fever. Post chemotherapy for CLL on December 28 with obinutuzumab. PAST MEDICAL HISTORY 1. History of CLL. 2. Hypertension 3. Hypercholesterolemia 4. Macular degeneration. 5. Diabetes mellitus type 2. 6. Appendectomy, 7. Atrial fibrillation. ALLERGIES NO KNOWN DRUG ALLERGIES. MEDICATIONS 1. Cefepime 2. Vancomycin. SOCIAL HISTORY No tobacco, no alcohol. No illicit drugs. OBJECTIVE: Vital Signs Date Time Temp Pulse Resp B/P Pulse Ox O2 Delivery O2 Flow Rate FiO2 01/01/17 10:00 99 01/01/17 08:00 97.4 114 20 105/62 97 01/01/17 08:00 114 01/01/17 07:35 96 Nasal Cannula 2.00 01/01/17 06:00 120 01/01/17 04:00 98.1 122 16 107/54 98 01/01/17 04:00 120 01/01/17 02:00 124 01/01/17 00:00 98.5 122 22 95/60 97 01/01/17 00:00 122 12/31/16 22:00 112 12/31/16 20:00 99.2 106 23 102/60 95 12/31/16 20:00 106 12/31/16 18:00 119 12/31/16 17:40 97.8 109 15 88/64 95 12/31/16 17:20 98.1 97 12 95/54 97 12/31/16 16:00 108 12/31/16 16:00 98.0 108 16 104/65 98 12/31/16 14:13 98.3 123 23 88/55 97 12/31/16 14:00 117 12/31/16 13:57 98.0 113 21 81/52 97 12/31/16 12/31/16 01/01/17 15:00 23:00 07:00 Intake Total 2250 ml 1502 ml Output Total 200 ml Balance 2050 ml 1502 ml Intake Oral 480 ml 480 ml IV Total 1097 ml 1022 ml Packed Cells 673 ml Output Urine Total 200 ml # Voids 1 1 # Bowel Movements 3 0 Laboratory Tests Test 12/30/16 12/31/16 12/31/16 01/01/17 17:10 10:21 23:10 03:20 White Blood Count 4.6 TH/MM3 3.6 TH/MM3 2.9 TH/MM3 Red Blood Count 3.71 MIL/MM3 2.68 MIL/MM3 2.90 MIL/MM3 Hemoglobin 9.7 GM/DL 7.0 GM/DL 8.1 GM/DL 8.0 GM/DL Hematocrit 29.4 % 21.1 % 24.4 % 23.2 % Mean Corpuscular Volume 79.4 FL 78.7 FL 80.0 FL Mean Corpuscular Hemoglobin 26.1 PG 26.3 PG 27.5 PG Mean Corpuscular Hemoglobin 32.9 % 33.4 % 34.4 % Concent Red Cell Distribution Width 19.8 % 19.6 % 18.9 % Platelet Count 22 TH/MM3 24 TH/MM3 19 TH/MM3 Mean Platelet Volume 10.9 FL 9.5 FL 9.7 FL Neutrophils (%) (Auto) 78.8 % 75.8 % 72.8 % Lymphocytes (%) (Auto) 16.8 % 18.5 % 23.0 % Monocytes (%) (Auto) 4.1 % 5.5 % 4.0 % Eosinophils (%) (Auto) 0.1 % 0.0 % 0.0 % Basophils (%) (Auto) 0.2 % 0.2 % 0.2 % Neutrophils # (Auto) 3.6 TH/MM3 2.8 TH/MM3 2.1 TH/MM3 Lymphocytes # (Auto) 0.8 TH/MM3 0.7 TH/MM3 0.7 TH/MM3 Monocytes # (Auto) 0.2 TH/MM3 0.2 TH/MM3 0.1 TH/MM3 Eosinophils # (Auto) 0.0 TH/MM3 0.0 TH/MM3 0.0 TH/MM3 Basophils # (Auto) 0.0 TH/MM3 0.0 TH/MM3 0.0 TH/MM3 CBC Comment AUTO DIFF AUTO DIFF AUTO DIFF Differential Comment AUTO DIFF AUTO DIFF AUTO DIFF CONFIRMED CONFIRMED CONFIRMED Ovalocytes 2+ 1+ 1+ Cadet Cells 1+ Crenated Cell 2+ Keratocytes 1+ OCC Platelet Estimate LOW RARE Platelet Morphology Comment NORMAL NORMAL Acanthocytes OCC OCC Laboratory Tests Test 12/30/16 12/30/16 12/31/1617 17:10 17: 03:25 10:21 Sodium Level 135 MEQ/L 140 MEQ/L Potassium Level 3.3 MEQ/L 3.4 MEQ/L Chloride Level 99 MEQ/L 108 MEQ/L Carbon Dioxide Level 24.8 MEQ/L 24.3 MEQ/L Anion Gap 11 MEQ/L 8 MEQ/L Blood Urea Nitrogen 38 MG/DL 37 MG/DL Creatinine 2.00 MG/DL 1.55 MG/DL Estimat Glomerular Filtration 24 ML/MIN 32 ML/MIN Rate Random Glucose 261 MG/DL 200 MG/DL Calcium Level 7.7 MG/DL 7.3 MG/DL Phosphorus Level 3.2 MG/DL Magnesium Level 2.0 MG/DL Total Bilirubin 2.3 MG/DL 3.3 MG/DL Aspartate Amino Transf 83 U/L 69 U/L (AST/SGOT) Alanine Aminotransferase 57 U/L 52 U/L (ALT/SGPT) Alkaline Phosphatase 62 U/L 49 U/L Total Creatine Kinase 21 U/L 16 U/L Troponin I 0.02 NG/ML Total Protein 5.5 GM/DL 4.5 GM/DL Albumin 2.7 GM/DL 2.2 GM/DL Lactic Acid Level 2.0 mmol/L Uric Acid 7.7 MG/DL Lactate Dehydrogenase 257 U/L Protein Corrected Calcium 8.8 MG/DL Test 01/01/17 03:20 Sodium Level 142 MEQ/L Potassium Level 3.8 MEQ/L Chloride Level 111 MEQ/L Carbon Dioxide Level 22.7 MEQ/L Anion Gap 8 MEQ/L Blood Urea Nitrogen 36 MG/DL Creatinine 1.29 MG/DL Estimat Glomerular Filtration 39 ML/MIN Rate Random Glucose 192 MG/DL Calcium Level 7.2 MG/DL Protein Corrected Calcium 8.8 MG/DL Phosphorus Level 3.1 MG/DL Magnesium Level 2.0 MG/DL Total Bilirubin 2.0 MG/DL Aspartate Amino Transf 85 U/L (AST/SGOT) Alanine Aminotransferase 64 U/L (ALT/SGPT) Alkaline Phosphatase 52 U/L Total Protein 4.3 GM/DL Albumin 1.9 GM/DL Microbiology Date/Time Procedure Status Source Growth 12/30/16 17:10 Aerobic Blood Culture - Preliminary Resulted Blood Peripheral NO GROWTH IN 2 DAYS 12/30/16 17:10 Anaerobic Blood Culture - Preliminary Resulted Blood Peripheral NO GROWTH IN 2 DAYS 12/30/16 17:18 Aerobic Blood Culture - Preliminary Resulted Blood Peripheral NO GROWTH IN 2 DAYS 12/30/16 17:18 Anaerobic Blood Culture - Preliminary Resulted Blood Peripheral NO GROWTH IN 2 DAYS 12/30/16 17:18 Influenza Types A,B Antigen (SUJEY) - Final Complete Nasal Aspirate NEGATIVE FOR FLU A AND B ANTIGEN.... PHYSICAL EXAMINATION GENERAL: No acute distress. She is awake and alert. HEENT: Head is atraumatic. Extraocular movements grossly intact, pupils reactive to light. No icterus. Oropharynx no visible lesions. NECK: Supple. No adenopathy. LUNGS: Decreased clear breath sounds HEART: Irregular rate and rhythm. No murmurs, rubs or gallops. ABDOMEN: Bowel sounds present, soft, nontender. EXTREMITIES: No clubbing or cyanosis. 1+ edema at the ankles. SKIN: No diffuse rash. NEUROLOGIC: Patient is alert and oriented. No gross focal findings. PSYCHIATRIC: The patient calm and cooperative. IMPRESSION 1. Fever 2. CLL 3. Pancytopenia following chemotherapy 4. Sepsis. 5. Gallbladder disease on ultrasound but clinically not symptomatic. RECOMMENDATIONS 1. Stop cefepime 2. Start Zosyn. 3. Continue vancomycin. Pharmacy to assist with dosing. 4. Monitor temperature 5. Monitor blood cultures. I will be off until 01/12. Other ID MS's covering in my absence. Jeremiah Thibodeaux MD Jan 01, 2017 13:02
[2017-01-01] MEDS: PIPERACIL-TAZO 3.375 GM PREMIX 50 ML IV SCH ×2 (14:52→20:53)
[2017-01-01] MEDS ORDERED: DILTIAZEM HCL 25 MG/5 ML VIAL IV ONE (17:45)
[2017-01-02] VITALS (13 sets, daily range): BP systolic 97–109; BP diastolic 55–78; PULSE 72–137; RESP 17–24; TEMP 97.1–98.3; O2SAT 92–99
[2017-01-02] MEDS ORDERED: DILTIAZEM HCL 25 MG/5 ML VIAL IVP ONE (01:15)
[2017-01-02] MEDS: SODIUM CHLOR 0.9% 1000 ML INJ 1,000 ML IV SCH ×2 (01:52→20:35)
[2017-01-02] MEDS: DILTIAZEM INJ 125 MG in SODIUM CHLORIDE 0.9% INJ 100 ML IV SCH ×2 (01:52→13:01)
[2017-01-02] MEDS: CHLORHEXIDINE GLUCONATE 2 % 1 PACK (2 CLOTHS) TOP SCH (04:00)
[2017-01-02] MEDS ORDERED: ACETAMINOPHEN 325 MG TAB PO PRN (06:00)
[2017-01-02] MEDS ORDERED: diphenhydrAMINE HCL 25 MG CAP PO PRN (06:00)
[2017-01-02] MEDS: PIPERACIL-TAZO 3.375 GM PREMIX 50 ML IV SCH ×3 (06:06→21:01)
[2017-01-02] MEDS: LEVOTHYROXINE SODIUM 75 MCG TAB PO SCH (06:06)
[2017-01-02] MEDS: INSULIN ASPART SUPPLEMENTAL SCALE SQ SCH ×4 (06:06→21:00)
[2017-01-02 06:32] LABS: APTT (PATIENT) 26.9 SEC (24.3-30.1); INTERNATIONAL NORMALIZED RATIO 0.9 RATIO; PROTHROMBIN TIME - PATIENT 10.2 SEC (9.8-11.6)
[2017-01-02 06:36] LABS: ALT (GPT) 110 U/L (10-53); ANION GAP 10 MEQ/L (5-15); AST (GOT) 145 U/L (15-37); BLOOD UREA NITROGEN 32 MG/DL (7-18); CHLORIDE 111 MEQ/L (98-107); GLOMERULAR FILTRATION RATE 38 ML/MIN (>89); POTASSIUM 3.3 MEQ/L (3.5-5.1); SODIUM (NA) 143 MEQ/L (136-145)
[2017-01-02 06:39] LABS: ALKALINE PHOSPHATASE 60 U/L (45-117); TOTAL BILIRUBIN ADULT 1.3 MG/DL (0.2-1.0)
[2017-01-02] MEDS ORDERED: SODIUM PHOSPHATE INJ 30 MMOL in SODIUM CHLOR 0.9% 250 ML INJ 240 ML IV PRN (07:15)
[2017-01-02] MEDS ORDERED: MAGNESIUM SULFATE INJ 4 GM in SODIUM CHLORIDE 0.9% INJ 92 ML IV PRN (07:15)
[2017-01-02] MEDS ORDERED: POTASSIUM PHOSPHATE MONOBASIC 500 MG TAB PO/TUBE PRN (07:15)
[2017-01-02] MEDS ORDERED: POTASSIUM CHLOR 20 MEQ PREMIX 100 ML IV PRN ×2 (07:15)
[2017-01-02] MEDS ORDERED: POTASSIUM PHOSPHATE INJ 30 MMOL in SODIUM CHLOR 0.9% 250 ML INJ 250 ML IV PRN (07:15)
[2017-01-02] MEDS ORDERED: MAGNESIUM OXIDE 400 MG TAB PO PRN (07:15)
[2017-01-02] MEDS ORDERED: POTASSIUM PHOSPHATE MONOBASIC 500 MG TAB PO PRN (07:15)
[2017-01-02] MEDS ORDERED: BUMETANIDE INJ 1 MG/4 ML VIAL IV PUSH ONE (07:15)
[2017-01-02] MEDS ORDERED: MAGNESIUM SULFATE INJ 2 GM in SODIUM CHLORIDE 0.9% INJ 96 ML IV PRN (07:15)
--- NOTE | 2017-01-02 07:30 | HHI.CCPN ---
Subjective Remarks/Hospital Course 86 yo F with PMH of CLL originally diagnosed in 1998, diabetes mellitus, hypercholesterolemia, hypothyroidism, CKD. She had been treated with Leukoveran which was discontinued about 8 months ago. She had progression of disease consisting of doubling of WBC, presence of thrombocytopenia and anemia and therefore was started on chemotherapy with obinutuzumab (given initial test dose 12/21/16). She developed hypotension and hypoxia following chemo and was admitted to [facility] [place] on 12/22 and found to have abrupt response in therapy. She developed tumor lysis syndrome. She was discharged on levaquin. She states that she had chemo again on 12/28/16. Tonight she developed fever 101 and contacted her oncologist, Dr. King who recommended evaluation in the ED. She states that she feels fatigued. Had one episode of diarrhea yesterday. Complains of nausea without vomiting. Complains of Mild headache without neck pain or stiffness. Denies sore throat, chest pain, cough, SOB, abdominal Pain, tenderness or drainage at the port site. Blood cultures have been obtained in the emergency department. Influenza is negative. Urinalysis is unremarkable. Her white blood cell count is 4.6, hemoglobin 9.7, platelets 22, creatinine 2. Heart rate was initially 105-117 in the ED but has improved with IV fluids and is currently in 80s to 90s. She had a blood pressure of 70/42 with mean arterial pressure of 51. She received 2 L normal saline bolus in the ED and subsequent mean arterial pressure has been 65-84. She has voided in the ED. Lactic acid is normal. She received vancomycin and cefepime in the ED. 01/01 Patient is lying in be din NAD. Afebrile. On Vasopressin 0.04 mics. Afebrile. s/p transfusion 2u PRBC yesterday for Hgb 7.0 Hgb 8.0 this morning with PLT 19. 4/ Patient is awake and alert off Vasopressin placed on Cardizem drip 12mg/hr overnight for Afib with RVR. Objective Vital Signs Date Time Temp Pulse Resp B/P Pulse Ox O2 Delivery O2 Flow Rate FiO2 01/02/17 02:00 129 01/02/17 00:00 98.3 18 97/65 94 01/01/17 07:35 Nasal Cannula 2.00 Intake and Output 01/01/17 01/01/1717 08:00 16:00 00:00 Intake Total 1502 ml 1449 ml 790 ml Output Total 1400 ml 800 ml Balance 1502 ml 49 ml -10 ml Result Diagram: 01/01/17 0320 01/02/17 0430 Other Results Laboratory Tests Test 01/02/17 04:30 Prothrombin Time 10.2 SEC Prothromb Time International 0.9 RATIO Ratio Activated Partial 26.9 SEC Thromboplast Time Fibrinogen 339 mg/dL Sodium Level 143 MEQ/L Potassium Level 3.3 MEQ/L Chloride Level 111 MEQ/L Carbon Dioxide Level 22.0 MEQ/L Anion Gap 10 MEQ/L Blood Urea Nitrogen 32 MG/DL Creatinine 1.31 MG/DL Estimat Glomerular Filtration 38 ML/MIN Rate Random Glucose 167 MG/DL Calcium Level 7.7 MG/DL Phosphorus Level 2.5 MG/DL Magnesium Level 2.0 MG/DL Total Bilirubin 1.3 MG/DL Aspartate Amino Transf 145 U/L (AST/SGOT) Alanine Aminotransferase 110 U/L (ALT/SGPT) Alkaline Phosphatase 60 U/L Total Protein 4.4 GM/DL Albumin 2.0 GM/DL Blood Type A POSITIVE Crossmatch Leukocyte-Reduced Red Blood Cells Blood Bank Comment Imaging Last Impressions Liver Ultrasound 01/01/17 0000 Signed Impressions: Service Date/Time: Sunday, January 01, 2017 08:32 - CONCLUSION: 1. Large gallstone in the gallbladder neck. The gallbladder is decompressed with some mural thickening and pericholecystic fluid. 2. Ascites and bilateral small pleural effusions. 3. Splenomegaly. Liver also appears somewhat prominent with coarsened echotexture. 4. Benign-appearing right renal and splenic parenchymal cysts. Jeremy Mullen MD Chest X-Ray 01/01/17 0000 Signed Impressions: Service Date/Time: Sunday, January 01, 2017 03:59 - CONCLUSION: Mild opacity at the left lung base representing either atelectasis or consolidation. Carlton Chavis MD Objective Remarks GENERAL: Patient is 86 yo lying in bed in NAD SKIN: Warm and dry. HEAD: Normocephalic. EYES: No scleral icterus. No injection or drainage. NECK: Supple, trachea midline. No JVD or lymphadenopathy. CARDIOVASCULAR: Tachycardic without murmurs, gallops, or rubs. RESPIRATORY: Breath sounds equal bilaterally. No accessory muscle use. GASTROINTESTINAL: Abdomen soft, non-tender, nondistended. MUSCULOSKELETAL: No cyanosis, or edema. BACK: Nontender without obvious deformity. No CVA tenderness. Neuro: Awake and alert A/P Assessment and Plan NEURO: Tylenol as needed for mild pain. Lortab as needed for moderate pain. Morphine when necessary for breakthrough pain. RESP: Continue with oxygen keep sat >92% Bronchodilators CXR 01/01 mild opacity in left lung base atelectasis vs consolidation CV: Atrial fibrillation Prior history of hypertension Wean off Cardizem drip and place on PO Cardizem 60mg QID- monitor HR and BP keep MAP>65mmHg Check echo to eval LV function Hold statin for elevated LFT's. GI: On PO diet Monitor LFT's, US Liver: Large gallstone in the gallbladder neck. The gallbladder is decompressed with some mural thickening and pericholecystic fluid. Ascites and bilateral small pleural effusions. Splenomegaly. Liver also appears somewhat prominent with coarsened echotexture. Benign-appearing right renal and splenic parenchymal cysts. Discussed with IR yesterday not enough space to place perc cholecystostomy tube. Patient denies any abd pain will monitor clinically and consider repeating US in 1-days. FEN/RENAL: MATILDA overlying CKD stage III Tumor lysis syndrome Continue allopurinol 100 mg po daily. Monitor renal function, I/O's, avoid nephrotoxins. Will need K replacement today Cr: 1.31, diurese with Bumex 1mg x1 IVF NS@75ml/hr ID: s/p Fever Left chest port in situ. Influenza screen negative Continue Empiric coverage for sepsis with Zosyn and vancomycin. ID is following - Dr. Thibodeaux. Monitor for signs of infections ( Fever, WBC) follow up on cxs HEME: CLL Thrombocytopenia Pancytopenia Monitor CBC. s/p transfusion 2U PRBC 12/31 Oncology- Dr. King. Further transfusion per Heme Chemotherapy with obinutuzumab, last dose 12/28/16 ENDO: Type 2 diabetes mellitus Hypothyroidism Low-dose insulin sliding scale ACh S TSH is normal 12/22/16. Continue Synthroid 75 g by mouth daily PROPH: SCDs for DVT prophylaxis. Not on pharmacologic DVT prophylaxis due to thrombocytopenia ACCESS: L chest port accessed. Level 3 Amol Gordon MD Jan 02, 2017 07:30
[2017-01-02 08:10] LABS: AUTOMATED NEUTROPHIL # 2.6 TH/MM3 (1.8-7.7); BASOPHIL % 0.5 % (0.0-2.0); EOSINOPHIL % 0.6 % (0.0-4.0); HEMATOCRIT 29.6 % (35.0-46.0); LYMPH % 21.6 % (9.0-44.0); LYMPHOCYTE # 0.8 TH/MM3 (1.0-4.8); MEAN CORPUSCULAR HEMOGLOBIN 26.4 PG (27.0-34.0); MEAN CORPUSCULAR HGB CONC 32.6 % (32.0-36.0); MONO % 4.1 % (0.0-8.0); NEUT % 73.2 % (16.0-70.0); RED BLOOD COUNT 3.65 MIL/MM3 (4.00-5.30); RED CELL DISTRIBUTION WIDTH 19.7 % (11.6-17.2); WHITE BLOOD COUNT 3.6 TH/MM3 (4.0-11.0)
[2017-01-02 08:11] LABS: HEMO FLAGS AUTO DIFF
[2017-01-02 08:13] LABS: PLATELET COUNT 18 TH/MM3 (150-450)
[2017-01-02] MEDS: PANTOPRAZOLE SODIUM 40 MG VIAL IV SCH (08:38)
[2017-01-02] MEDS: DILTIAZEM HCL 60 MG TAB PO SCH ×4 (08:38→21:01)
[2017-01-02] MEDS: ALLOPURINOL 100 MG TAB PO SCH (08:38)
[2017-01-02] MEDS: POTASSIUM CHLOR 40 MEQ PREMIX 100 ML IV PRN (08:39)
[2017-01-02] MEDS: DOCUSATE SODIUM 100 MG CAP PO SCH ×2 (09:00→20:35)
[2017-01-02 09:25] LABS: ACANTHOCYTES OCC (NORMAL); BURR CELLS 1+ (NORMAL); OVALOCYTES 1+ (NORMAL); PLATELET ESTIMATE SMEAR RARE (NORMAL)
[2017-01-02 09:27] LABS: PLATELET MORPHOLOGY NORMAL (NORMAL); SCAN/DIFF AUTO DIFF CONFIRMED
--- NOTE | 2017-01-02 10:43 | PD.ONC.PN ---
Subjective Subjective Remarks Afebrile overnight. Started on Cardizem drip last night after going into Afib. She states she feels tired today and has an occasional cough. Objective Data Date Time Temp Pulse Resp B/P Pulse Ox O2 Delivery O2 Flow Rate FiO2 01/02/17 06:00 93 01/02/17 04:00 94 01/02/17 04:00 98.2 94 18 107/56 99 01/02/17 02:00 129 01/02/17 00:00 98.3 129 18 97/65 94 01/02/17 00:00 129 01/01/17 22:00 127 01/01/17 20:00 98.5 96 21 113/56 95 01/01/17 20:00 96 01/01/17 18:00 118 01/01/17 16:00 98.4 107 20 97/62 95 01/01/17 16:00 107 01/01/17 14:00 128 01/01/17 12:00 130 01/01/17 12:00 98.3 130 18 88/66 97 01/02/17 01/02/17 01/02/17 07:00 15:00 23:00 Intake Total 722 ml Output Total 325 ml Balance 397 ml Result Diagram: 01/02/17 0625 01/02/17 0430 Laboratory Results Laboratory Tests Test 01/02/17 01/02/17 04:30 06:25 Prothrombin Time 10.2 SEC Prothromb Time International 0.9 RATIO Ratio Activated Partial 26.9 SEC Thromboplast Time Fibrinogen 339 mg/dL Sodium Level 143 MEQ/L Potassium Level 3.3 MEQ/L Chloride Level 111 MEQ/L Carbon Dioxide Level 22.0 MEQ/L Anion Gap 10 MEQ/L Blood Urea Nitrogen 32 MG/DL Creatinine 1.31 MG/DL Estimat Glomerular Filtration 38 ML/MIN Rate Random Glucose 167 MG/DL Calcium Level 7.7 MG/DL Phosphorus Level 2.5 MG/DL Magnesium Level 2.0 MG/DL Total Bilirubin 1.3 MG/DL Aspartate Amino Transf 145 U/L (AST/SGOT) Alanine Aminotransferase 110 U/L (ALT/SGPT) Alkaline Phosphatase 60 U/L Total Protein 4.4 GM/DL Albumin 2.0 GM/DL Blood Type A POSITIVE Crossmatch Leukocyte-Reduced Red Blood Cells Blood Bank Comment White Blood Count 3.6 TH/MM3 Red Blood Count 3.65 MIL/MM3 Hemoglobin 9.6 GM/DL Hematocrit 29.6 % Mean Corpuscular Volume 81.0 FL Mean Corpuscular Hemoglobin 26.4 PG Mean Corpuscular Hemoglobin 32.6 % Concent Red Cell Distribution Width 19.7 % Platelet Count 18 TH/MM3 Mean Platelet Volume 10.6 FL Neutrophils (%) (Auto) 73.2 % Lymphocytes (%) (Auto) 21.6 % Monocytes (%) (Auto) 4.1 % Eosinophils (%) (Auto) 0.6 % Basophils (%) (Auto) 0.5 % Neutrophils # (Auto) 2.6 TH/MM3 Lymphocytes # (Auto) 0.8 TH/MM3 Monocytes # (Auto) 0.1 TH/MM3 Eosinophils # (Auto) 0.0 TH/MM3 Basophils # (Auto) 0.0 TH/MM3 CBC Comment AUTO DIFF Differential Comment AUTO DIFF CONFIRMED Platelet Estimate RARE Platelet Morphology Comment NORMAL Ovalocytes 1+ [place] Cells 1+ Acanthocytes OCC Culture Results Microbiology Date/Time Procedure Status Source Growth 12/30/16 17:10 Aerobic Blood Culture - Preliminary Resulted Blood Peripheral NO GROWTH IN 2 DAYS 12/30/16 17:10 Anaerobic Blood Culture - Preliminary Resulted Blood Peripheral NO GROWTH IN 2 DAYS 12/30/16 17:18 Aerobic Blood Culture - Preliminary Resulted Blood Peripheral NO GROWTH IN 2 DAYS 12/30/16 17:18 Anaerobic Blood Culture - Preliminary Resulted Blood Peripheral NO GROWTH IN 2 DAYS 12/30/16 17:18 Influenza Types A,B Antigen (SUJEY) - Final Complete Nasal Aspirate NEGATIVE FOR FLU A AND B ANTIGEN.... Administered Medications Medications (Trade) Dose Ordered Sig/Loretta Route PRN Reason Start Time Stop Time Status Last Admin Dose Admin Sodium Chloride (NS 1000 ml Inj) 1,000 ml @ 75 mls/hr [id number] IV 12/30/16 22:00 01/02/17 01:52 Heparin Sodium (Porcine) (Heparin Central Flush) 500 units DAILY IV FLUSH 12/31/16 09:00 01/02/17 08:38 Allopurinol (Zyloprim) 100 mg DAILY PO 12/31/16 09:00 01/02/17 08:38 Levothyroxine Sodium (Synthroid) 75 mcg DAILY@06 PO 12/31/16 06:00 01/02/17 06:06 Acetaminophen (Tylenol) 650 mg Q6H PRN PO PAIN 1-3 OR TEMP >101 12/31/16 03:30 12/31/16 06:06 Pantoprazole Sodium (Protonix Inj) 40 mg DAILY IV 12/31/16 09:00 01/02/17 08:38 Docusate Sodium (Colace) 100 mg BID PO 12/31/16 09:00 01/01/17 20:57 Chlorhexidine Gluconate 3 pack 3 pack Taper DAILY@04 TOP 12/31/16 04:00 12/27/17 03:59 01/02/17 04:00 Vancomycin HCl 1250 mg/Sodium Chloride 262.5 ml @ 250 mls/hr Q24H IV 01/01/17 10:00 01/01/17 10:38 Piperacillin Sod/ Tazobactam Sod 50 ml @ 100 mls/hr Q8H IV 01/01/17 14:00 01/02/17 06:06 Diltiazem HCl 125 mg/Sodium Chloride 125 ml @ 0 mls/hr TITRATE IV 01/02/17 01:15 01/02/17 01:52 Potassium Chloride (KCl 40 Meq Premix Inj) 100 ml @ 25 mls/hr UNSCH PRN IV For Potassium 3.3 - 3.5 mEq/L 01/02/17 07:15 01/02/17 08:39 Diltiazem HCl (Cardizem) 60 mg QID PO 01/02/17 09:00 01/02/17 08:38 Objective Remarks GENERAL: Elderly female, supine in bed resting. SKIN: Warm and dry. No bleeding. HEAD: Normocephalic. EYES: No injection or drainage. NECK: Supple, trachea midline. CARDIOVASCULAR: tachycardic rate, irregular rhythm RESPIRATORY: scattered wheeze GASTROINTESTINAL: Abdomen soft, non-tender, nondistended. EXTREMITIES: No cyanosis. NEUROLOGICAL: awake and alert, normal speech. moving all extremities Assessment/Plan Problem List: (1) Chronic lymphocytic leukemia Status: Acute Plan: -- Last treated with obinutuzumab on 12/28. Hx/Workup: Originally diagnosed with CLL in 1989. She was on Leukeran, however this has been discontinued. In November her white count was greater than 200K. She was confirmed to have CLL infiltrating the bone marrow. She received a small dose of 100mg obinutuzumab but unfortunately developed tumor lysis syndrome following this. (2) Sepsis Status: Acute Plan: -- On Vanco, Cefepime -- Monitor for fevers -- Blood cultures show no growth x 2 days. --CXR, 01/01 shows mild opacity at left lung base (3) Tumor lysis syndrome following antineoplastic drug therapy Status: Acute Plan: --100 mg Allopurinol daily -- Daily tumor lysis labs incl BMP, Mag, Phos. -- Continue IVF (4) Elevated liver enzymes Status: Acute Plan: --bilirubin improving -- US of the liver shows a gallstone in the gallbladder neck associated with mural thickening and pericholecystic fluid. -- Discussed with Dr. Smith. No need for intervention at this time. Repeat imaging next week. Assessment 86 y/o female with history of CLL admitted for fevers and pancytopenia. Plan 1. continue antibiotics 2. monitor labs Attending Statement The exam, history, and the medical decision-making described in the above note were completed with the assistance of the mid-level provider. I reviewed and agree with the findings presented. I attest that I had a [id number] encounter with the patient on the same day, and personally performed and documented my assessment and findings in the medical record. Feels tired today. Platelet still low, no bleeding. Continue to monitor CBC and transfuse prn. Continue Abx. Problem Qualifiers (1) Sepsis: Qualified Code: A41.9 - Sepsis, due to unspecified organism Amy Durant Jan 02, 2017 10:43 Afshin Pena MD Jan 02, 2017 12:38
[2017-01-02] MEDS: VANCOMYCIN INJ 1,250 MG in SODIUM CHLOR 0.9% 250 ML INJ 250 ML IV SCH (11:07)
[2017-01-02 11:46] LABS: URIC ACID 4.7 MG/DL (2.6-6.0)
[2017-01-02] MEDS: RESP: ALBUTEROL 2.5 MG/3 ML NEB (PRN) INH (13:44)
--- NOTE | 2017-01-02 22:53 | HHI.IDPN ---
Subjective Subjective Remarks ID - delayed entry pt was seen around 330 pm today X cover for Dr Malone Chart was reviewed 86 yo F with CLL. Admitted to the hospital because of fever. Post chemotherapy for CLL on December 28 with obinutuzumab. Patient feels okay. Off vasopressin and BP stable. Has Afib with rapid response. Denies chills, nausea, abdominal pain. Abdominal ultrasound shows stone at the gallbladder neck. Afebrile. Liver US showed Large gallstone in the gallbladder neck. The gallbladder is decompressed with some mural thickening and pericholecystic fluid. Ascites and bilateral small pleural effusions. Splenomegaly. Liver also appears somewhat prominent with coarsened echotexture. Benign-appearing right renal and splenic parenchymal cysts. IR recommended monitor clinically and consider repeating US in 1-days before place perc cholecystostomy tube since now not enough space. Antibiotics zosyn vanco Allergies: Coded Allergies: No Known Allergies (Unverified , 12/30/16) Objective . Vital Signs Date Time Temp Pulse Resp B/P Pulse Ox O2 Delivery O2 Flow Rate FiO2 01/02/17 18:00 137 01/02/17 16:00 116 01/02/17 16:00 97.9 116 24 105/67 94 01/02/17 14:00 102 01/02/17 12:00 72 01/02/17 12:00 97.6 72 20 109/60 94 01/02/17 10:43 96 Nasal Cannula 2.00 01/02/17 10:00 106 01/02/17 08:00 85 01/02/17 08:00 97.1 85 17 100/55 92 01/02/17 06:00 93 01/02/17 04:00 94 01/02/17 04:00 98.2 94 18 107/56 99 01/02/17 02:00 129 01/02/17 00:00 98.3 129 18 97/65 94 01/02/17 00:00 129 01/01/17 01/01/17 01/02/17 15:00 23:00 07:00 Intake Total 1449 ml 790 ml 722 ml Output Total 1400 ml 800 ml 325 ml Balance 49 ml -10 ml 397 ml Intake Oral 480 ml 240 ml 180 ml IV Total 969 ml 550 ml 542 ml Output Urine Total 1400 ml 800 ml 325 ml # Bowel Movements 0 0 0 . Laboratory Tests Test 12/31/16 01/01/17 01/02/17 23:10 03:20 06:25 Hemoglobin 8.1 GM/DL 8.0 GM/DL 9.6 GM/DL Hematocrit 24.4 % 23.2 % 29.6 % White Blood Count 2.9 TH/MM3 3.6 TH/MM3 Red Blood Count 2.90 MIL/MM3 3.65 MIL/MM3 Mean Corpuscular Volume 80.0 FL 81.0 FL Mean Corpuscular Hemoglobin 27.5 PG 26.4 PG Mean Corpuscular Hemoglobin 34.4 % 32.6 % Concent Red Cell Distribution Width 18.9 % 19.7 % Platelet Count 19 TH/MM3 18 TH/MM3 Mean Platelet Volume 9.7 FL 10.6 FL Neutrophils (%) (Auto) 72.8 % 73.2 % Lymphocytes (%) (Auto) 23.0 % 21.6 % Monocytes (%) (Auto) 4.0 % 4.1 % Eosinophils (%) (Auto) 0.0 % 0.6 % Basophils (%) (Auto) 0.2 % 0.5 % Neutrophils # (Auto) 2.1 TH/MM3 2.6 TH/MM3 Lymphocytes # (Auto) 0.7 TH/MM3 0.8 TH/MM3 Monocytes # (Auto) 0.1 TH/MM3 0.1 TH/MM3 Eosinophils # (Auto) 0.0 TH/MM3 0.0 TH/MM3 Basophils # (Auto) 0.0 TH/MM3 0.0 TH/MM3 CBC Comment AUTO DIFF AUTO DIFF Differential Comment AUTO DIFF AUTO DIFF CONFIRMED CONFIRMED Platelet Estimate RARE RARE Platelet Morphology Comment NORMAL NORMAL Ovalocytes 1+ 1+ Acanthocytes OCC OCC Binger Cells 1+ Laboratory Tests Test 01/01/17 01/02/17 01/02/17 03:20 04:30 11:10 Sodium Level 142 MEQ/L 143 MEQ/L Potassium Level 3.8 MEQ/L 3.3 MEQ/L Chloride Level 111 MEQ/L 111 MEQ/L Carbon Dioxide Level 22.7 MEQ/L 22.0 MEQ/L Anion Gap 8 MEQ/L 10 MEQ/L Blood Urea Nitrogen 36 MG/DL 32 MG/DL Creatinine 1.29 MG/DL 1.31 MG/DL Estimat Glomerular Filtration 39 ML/MIN 38 ML/MIN Rate Random Glucose 192 MG/DL 167 MG/DL Calcium Level 7.2 MG/DL 7.7 MG/DL Protein Corrected Calcium 8.8 MG/DL Phosphorus Level 3.1 MG/DL 2.5 MG/DL 2.2 MG/DL Magnesium Level 2.0 MG/DL 2.0 MG/DL Total Bilirubin 2.0 MG/DL 1.3 MG/DL Aspartate Amino Transf 85 U/L 145 U/L (AST/SGOT) Alanine Aminotransferase 64 U/L 110 U/L (ALT/SGPT) Alkaline Phosphatase 52 U/L 60 U/L Total Protein 4.3 GM/DL 4.4 GM/DL Albumin 1.9 GM/DL 2.0 GM/DL Uric Acid 4.7 MG/DL Lactate Dehydrogenase 191 U/L Imaging Last Impressions Liver Ultrasound 01/01/17 0000 Signed Impressions: Service Date/Time: Sunday, January 01, 2017 08:32 - CONCLUSION: 1. Large gallstone in the gallbladder neck. The gallbladder is decompressed with some mural thickening and pericholecystic fluid. 2. Ascites and bilateral small pleural effusions. 3. Splenomegaly. Liver also appears somewhat prominent with coarsened echotexture. 4. Benign-appearing right renal and splenic parenchymal cysts. Jeremy Mullen MD Chest X-Ray 01/01/17 0000 Signed Impressions: Service Date/Time: Sunday, January 01, 2017 03:59 - CONCLUSION: Mild opacity at the left lung base representing either atelectasis or consolidation. Carlton Chavis MD Physical Exam GENERAL: No acute distress. She is awake and alert. HEENT: Head is atraumatic. Extraocular movements grossly intact, pupils reactive to light. No icterus. Oropharynx no visible lesions. NECK: Supple. No adenopathy. LUNGS: Decreased clear breath sounds HEART: Irregular rate and rhythm. No murmurs, rubs or gallops. ABDOMEN: Bowel sounds present, soft, nontender. EXTREMITIES: No clubbing or cyanosis. 1+ edema at the ankles. SKIN: No diffuse rash. NEUROLOGIC: Patient is alert and oriented. No gross focal findings. PSYCHIATRIC: The patient calm and cooperative. Assessment & Plan Remarks IMPRESSION 1. Fever 2. CLL 3. Pancytopenia following chemotherapy 4. Sepsis. 5. Gallbladder disease suspicious for calculous cholecystitis on ultrasound but clinically not symptomatic. RECOMMENDATIONS 1. cont zosyn. 3. Continue vancomycin. Pharmacy to assist with dosing. 4. Monitor temperature 5. Monitor blood cultures. repeat US in 1-2 days Edda Giron MD Jan 02, 2017 22:53
[2017-01-03] VITALS (13 sets, daily range): BP systolic 96–132; BP diastolic 17–72; PULSE 67–134; RESP 17–35; TEMP 97.6–98.6; O2SAT 93–97
[2017-01-03] MEDS ORDERED: DILTIAZEM HCL 25 MG/5 ML VIAL IV SCH (03:15)
[2017-01-03] MEDS: CHLORHEXIDINE GLUCONATE 2 % 1 PACK (2 CLOTHS) TOP SCH (03:30)
[2017-01-03 04:35] LABS: AUTOMATED NEUTROPHIL # 1.8 TH/MM3 (1.8-7.7); EOSINOPHIL % 1.6 % (0.0-4.0); HEMATOCRIT 28.1 % (35.0-46.0); LYMPH % 23.3 % (9.0-44.0); LYMPHOCYTE # 0.6 TH/MM3 (1.0-4.8); MEAN CELL VOLUME 80.1 FL (80.0-100.0); MEAN CORPUSCULAR HEMOGLOBIN 26.8 PG (27.0-34.0); MEAN CORPUSCULAR HGB CONC 33.5 % (32.0-36.0); MONO % 5.7 % (0.0-8.0); NEUT % 68.4 % (16.0-70.0); PLATELET COUNT 31 TH/MM3 (150-450); RED CELL DISTRIBUTION WIDTH 19.7 % (11.6-17.2); WHITE BLOOD COUNT 2.6 TH/MM3 (4.0-11.0)
[2017-01-03] MEDS: DILTIAZEM INJ 125 MG in SODIUM CHLORIDE 0.9% INJ 100 ML IV SCH ×2 (04:44→13:36)
[2017-01-03 05:13] LABS: BICARBONATE 23.8 MEQ/L (21.0-32.0); CALCIUM-PROTEIN CORRECTED 8.8 MG/DL (8.5-10.1); MAGNESIUM 1.7 MG/DL (1.5-2.5); POTASSIUM 3.2 MEQ/L (3.5-5.1); TOTAL BILIRUBIN ADULT 1.8 MG/DL (0.2-1.0)
[2017-01-03 05:16] LABS: HEMO FLAGS AUTO DIFF
[2017-01-03 05:18] LABS: KERATOCYTES 1+ (NORMAL); OVALOCYTES 2+ (NORMAL); SCAN/DIFF AUTO DIFF CONFIRMED; TARGET CELLS 1+ (NORMAL)
[2017-01-03] MEDS: PIPERACIL-TAZO 3.375 GM PREMIX 50 ML IV SCH ×3 (06:12→21:23)
[2017-01-03] MEDS: LEVOTHYROXINE SODIUM 75 MCG TAB PO SCH (06:12)
[2017-01-03] MEDS: INSULIN ASPART SUPPLEMENTAL SCALE SQ SCH ×4 (06:12→21:00)
[2017-01-03] MEDS: SODIUM CHLOR 0.9% 1000 ML INJ 1,000 ML IV SCH (06:13)
[2017-01-03] MEDS: POTASSIUM CHLOR 40 MEQ PREMIX 100 ML IV PRN ×2 (06:13→08:37)
--- NOTE | 2017-01-03 07:42 | HHI.CCPN ---
Subjective Remarks/Hospital Course 86 yo F with PMH of CLL originally diagnosed in 1998, diabetes mellitus, hypercholesterolemia, hypothyroidism, CKD. She had been treated with Leukoveran which was discontinued about 8 months ago. She had progression of disease consisting of doubling of WBC, presence of thrombocytopenia and anemia and therefore was started on chemotherapy with obinutuzumab (given initial test dose 12/21/16). She developed hypotension and hypoxia following chemo and was admitted to [facility] and found to have abrupt response in therapy. She developed tumor lysis syndrome. She was discharged on levaquin. She states that she had chemo again on 12/28/16. Tonight she developed fever 101 and contacted her oncologist, Dr. King who recommended evaluation in the ED. She states that she feels fatigued. Had one episode of diarrhea yesterday. Complains of nausea without vomiting. Complains of Mild headache without neck pain or stiffness. Denies sore throat, chest pain, cough, SOB, abdominal Pain, tenderness or drainage at the port site. Blood cultures have been obtained in the emergency department. Influenza is negative. Urinalysis is unremarkable. Her white blood cell count is 4.6, hemoglobin 9.7, platelets 22, creatinine 2. Heart rate was initially 105-117 in the ED but has improved with IV fluids and is currently in 80s to 90s. She had a blood pressure of 70/42 with mean arterial pressure of 51. She received 2 L normal saline bolus in the ED and subsequent mean arterial pressure has been 65-84. She has voided in the ED. Lactic acid is normal. She received vancomycin and cefepime in the ED. 01/01 Patient is lying in be din NAD. Afebrile. On Vasopressin 0.04 mics. Afebrile. s/p transfusion 2u PRBC yesterday for Hgb 7.0 Hgb 8.0 this morning with PLT 19. 01/02 Patient is awake and alert off Vasopressin placed on Cardizem drip 12mg/hr overnight for Afib with RVR. 01/03 Patient remains on Cardizem drip 15mg/hr. Awake and alert, denies any SOB or abdominal pain. Objective Vital Signs Date Time Temp Pulse Resp B/P Pulse Ox O2 Delivery O2 Flow Rate FiO2 01/02/17 22:00 123 01/02/17 20:00 98.3 18 106/78 94 01/02/17 10:43 Nasal Cannula 2.00 Intake and Output 01/02/17 01/02/17 01/03/17 08:00 16:00 00:00 Intake Total 722 ml 2284 ml 873 ml Output Total 325 ml 0 ml 300 ml Balance 397 ml 2284 ml 573 ml Result Diagram: 01/03/17 0330 01/03/17 0330 Other Results Laboratory Tests Test 01/02/17 01/03/17 11:10 03:30 Phosphorus Level 2.2 MG/DL 4.0 MG/DL White Blood Count 2.6 TH/MM3 Red Blood Count 3.50 MIL/MM3 Hemoglobin 9.4 GM/DL Hematocrit 28.1 % Mean Corpuscular Volume 80.1 FL Mean Corpuscular Hemoglobin 26.8 PG Mean Corpuscular Hemoglobin 33.5 % Concent Red Cell Distribution Width 19.7 % Platelet Count 31 TH/MM3 Mean Platelet Volume 11.2 FL Neutrophils (%) (Auto) 68.4 % Lymphocytes (%) (Auto) 23.3 % Monocytes (%) (Auto) 5.7 % Eosinophils (%) (Auto) 1.6 % Basophils (%) (Auto) 1.0 % Neutrophils # (Auto) 1.8 TH/MM3 Lymphocytes # (Auto) 0.6 TH/MM3 Monocytes # (Auto) 0.1 TH/MM3 Eosinophils # (Auto) 0.0 TH/MM3 Basophils # (Auto) 0.0 TH/MM3 CBC Comment AUTO DIFF Differential Comment AUTO DIFF CONFIRMED Target Cells 1+ Ovalocytes 2+ Keratocytes 1+ Sodium Level 145 MEQ/L Potassium Level 3.2 MEQ/L Chloride Level 111 MEQ/L Carbon Dioxide Level 23.8 MEQ/L Anion Gap 10 MEQ/L Blood Urea Nitrogen 23 MG/DL Creatinine 1.30 MG/DL Estimat Glomerular Filtration 39 ML/MIN Rate Random Glucose 145 MG/DL Calcium Level 7.3 MG/DL Protein Corrected Calcium 8.8 MG/DL Magnesium Level 1.7 MG/DL Total Bilirubin 1.8 MG/DL Aspartate Amino Transf 66 U/L (AST/SGOT) Alanine Aminotransferase 94 U/L (ALT/SGPT) Alkaline Phosphatase 55 U/L Total Protein 4.4 GM/DL Albumin 2.0 GM/DL Imaging Last Impressions Liver Ultrasound 01/01/17 0000 Signed Impressions: Service Date/Time: Sunday, January 01, 2017 08:32 - CONCLUSION: 1. Large gallstone in the gallbladder neck. The gallbladder is decompressed with some mural thickening and pericholecystic fluid. 2. Ascites and bilateral small pleural effusions. 3. Splenomegaly. Liver also appears somewhat prominent with coarsened echotexture. 4. Benign-appearing right renal and splenic parenchymal cysts. Jeremy Mullen MD Chest X-Ray 01/01/17 0000 Signed Impressions: Service Date/Time: Sunday, January 01, 2017 03:59 - CONCLUSION: Mild opacity at the left lung base representing either atelectasis or consolidation. Carlton Chavis MD Objective Remarks GENERAL: Patient is 86 yo lying in bed in NAD SKIN: Warm and dry. HEAD: Normocephalic. EYES: No scleral icterus. No injection or drainage. NECK: Supple, trachea midline. No JVD or lymphadenopathy. CARDIOVASCULAR: Tachycardic, irregular without murmurs, gallops, or rubs. RESPIRATORY: Breath sounds equal bilaterally. No accessory muscle use. GASTROINTESTINAL: Abdomen soft, non-tender, nondistended. MUSCULOSKELETAL: No cyanosis, or edema. BACK: Nontender without obvious deformity. No CVA tenderness. Neuro: Awake and alert A/P Assessment and Plan NEURO: Tylenol as needed for mild pain. Lortab as needed for moderate pain. Morphine when necessary for breakthrough pain. RESP: Continue with oxygen keep sat >92% Bronchodilators CXR 01/01 mild opacity in left lung base atelectasis vs consolidation CV: Atrial fibrillation Prior history of hypertension Wean off Cardizem drip,on PO Cardizem 60mg QID, add Lopressor 25mg BID- monitor HR and BP keep MAP>65mmHg Check echo to eval LV function statin on hold for elevated LFT's. GI: On PO diet Monitor LFT's ( Trending down) US Liver: Large gallstone in the gallbladder neck. The gallbladder is decompressed with some mural thickening and pericholecystic fluid. Ascites and bilateral small pleural effusions. Splenomegaly. Liver also appears somewhat prominent with coarsened echotexture. Benign-appearing right renal and splenic parenchymal cysts. Discussed with IR 01/[address] perc cholecystostomy tube. Patient denies any abd pain will monitor clinically and consider repeating US in 1-2-days. FEN/RENAL: MATILDA overlying CKD stage III Tumor lysis syndrome Continue allopurinol 100 mg po daily. Monitor renal function, I/O's, avoid nephrotoxins. Will need K replacement today Cr: 1.30 today, diurese with Bumex 1mg x1 d/c IVF ID: s/p Fever Left chest port in situ. Influenza screen negative Continue Empiric coverage for sepsis with Zosyn and vancomycin. ID is following - Dr. Thibodeaux. Monitor for signs of infections ( Fever, WBC) BC 12/30: NGTD HEME: CLL Thrombocytopenia- improving Pancytopenia Monitor CBC. s/p transfusion 2U PRBC 12/31 Oncology- Dr. King. Further transfusion per Heme Chemotherapy with obinutuzumab, last dose 12/28/16 ENDO: Type 2 diabetes mellitus Hypothyroidism Low-dose insulin sliding scale ACh S TSH is normal 12/22/16. Continue Synthroid 75 g by mouth daily PROPH: SCDs for DVT prophylaxis. Not on pharmacologic DVT prophylaxis due to thrombocytopenia ACCESS: L chest port accessed. Level 3 Amol Gordon MD Jan 03, 2017 07:42
[2017-01-03] MEDS ORDERED: BUMETANIDE INJ 1 MG/4 ML VIAL IV PUSH ONE ×2 (07:45→10:15)
[2017-01-03] MEDS: PANTOPRAZOLE SODIUM 40 MG VIAL IV SCH (08:18)
[2017-01-03] MEDS: ALLOPURINOL 100 MG TAB PO SCH (08:18)
[2017-01-03] MEDS: RESP: ALBUTEROL 2.5 MG/3 ML NEB (PRN) INH (08:31)
[2017-01-03] MEDS: DOCUSATE SODIUM 100 MG CAP PO SCH ×2 (09:00→21:00)
[2017-01-03] MEDS: METOPROLOL TARTRATE 25 MG TAB PO SCH ×2 (09:17→21:22)
[2017-01-03] MEDS: DILTIAZEM HCL 60 MG TAB PO SCH ×4 (09:17→21:22)
[2017-01-03] MEDS: VANCOMYCIN INJ 1,250 MG in SODIUM CHLOR 0.9% 250 ML INJ 250 ML IV SCH (11:01)
--- NOTE | 2017-01-03 11:57 | PD.ONC.PN ---
Subjective Subjective Remarks Afebrile overnight. Patient has wet cough today. She remains tachycardic despite cardizem. Objective Data Date Time Temp Pulse Resp B/P Pulse Ox O2 Delivery O2 Flow Rate FiO2 01/03/17 08:32 96 Nasal Cannula 2.00 01/03/17 06:00 134 01/03/17 04:00 97.6 130 17 121/17 94 01/03/17 04:00 130 01/03/17 02:00 128 01/03/17 00:00 120 01/03/17 00:00 98.1 120 17 132/61 94 01/02/17 22:00 123 01/02/17 20:00 98.3 109 18 106/78 94 01/02/17 20:00 109 01/02/17 18:00 137 01/02/17 16:00 116 01/02/17 16:00 97.9 116 24 105/67 94 01/02/17 14:00 102 01/02/17 12:00 72 01/02/17 12:00 97.6 72 20 109/60 94 01/03/17 01/03/17 01/03/17 07:00 15:00 23:00 Intake Total 711 ml Output Total 450 ml Balance 261 ml Result Diagram: 01/03/17 0330 01/03/17 0330 Laboratory Results Laboratory Tests Test 01/03/17 03:30 White Blood Count 2.6 TH/MM3 Red Blood Count 3.50 MIL/MM3 Hemoglobin 9.4 GM/DL Hematocrit 28.1 % Mean Corpuscular Volume 80.1 FL Mean Corpuscular Hemoglobin 26.8 PG Mean Corpuscular Hemoglobin 33.5 % Concent Red Cell Distribution Width 19.7 % Platelet Count 31 TH/MM3 Mean Platelet Volume 11.2 FL Neutrophils (%) (Auto) 68.4 % Lymphocytes (%) (Auto) 23.3 % Monocytes (%) (Auto) 5.7 % Eosinophils (%) (Auto) 1.6 % Basophils (%) (Auto) 1.0 % Neutrophils # (Auto) 1.8 TH/MM3 Lymphocytes # (Auto) 0.6 TH/MM3 Monocytes # (Auto) 0.1 TH/MM3 Eosinophils # (Auto) 0.0 TH/MM3 Basophils # (Auto) 0.0 TH/MM3 CBC Comment AUTO DIFF Differential Comment AUTO DIFF CONFIRMED Target Cells 1+ Ovalocytes 2+ Keratocytes 1+ Sodium Level 145 MEQ/L Potassium Level 3.2 MEQ/L Chloride Level 111 MEQ/L Carbon Dioxide Level 23.8 MEQ/L Anion Gap 10 MEQ/L Blood Urea Nitrogen 23 MG/DL Creatinine 1.30 MG/DL Estimat Glomerular Filtration 39 ML/MIN Rate Random Glucose 145 MG/DL Calcium Level 7.3 MG/DL Protein Corrected Calcium 8.8 MG/DL Phosphorus Level 4.0 MG/DL Magnesium Level 1.7 MG/DL Total Bilirubin 1.8 MG/DL Aspartate Amino Transf 66 U/L (AST/SGOT) Alanine Aminotransferase 94 U/L (ALT/SGPT) Alkaline Phosphatase 55 U/L Total Protein 4.4 GM/DL Albumin 2.0 GM/DL Administered Medications Medications (Trade) Dose Ordered Sig/Loretta Route PRN Reason Start Time Stop Time Status Last Admin Dose Admin Heparin Sodium (Porcine) (Heparin Central Flush) 500 units DAILY IV FLUSH 12/31/16 09:00 01/03/17 08:18 Allopurinol (Zyloprim) 100 mg DAILY PO 12/31/16 09:00 01/03/17 08:18 Levothyroxine Sodium (Synthroid) 75 mcg DAILY@06 PO 12/31/16 06:00 01/03/17 06:12 Acetaminophen (Tylenol) 650 mg Q6H PRN PO PAIN 1-3 OR TEMP >101 12/31/16 03:30 12/31/16 06:06 Pantoprazole Sodium (Protonix Inj) 40 mg DAILY IV 12/31/16 09:00 01/03/17 08:18 Docusate Sodium (Colace) 100 mg BID PO 12/31/16 09:00 01/01/17 20:57 Chlorhexidine Gluconate 3 pack 3 pack Taper DAILY@04 TOP 12/31/16 04:00 12/27/17 03:59 01/03/17 03:30 Vancomycin HCl 1250 mg/Sodium Chloride 262.5 ml @ 250 mls/hr Q24H IV 01/01/17 10:00 01/03/17 11:01 Piperacillin Sod/ Tazobactam Sod 50 ml @ 100 mls/hr Q8H IV 01/01/17 14:00 01/03/17 06:12 Diltiazem HCl 125 mg/Sodium Chloride 125 ml @ 0 mls/hr TITRATE IV 01/02/17 01:15 01/03/17 04:44 Potassium Chloride 100 ml @ 50 mls/hr Q2H PRN IV For Potassium 2.8 - 3.2 mEq/L 01/02/17 07:15 01/03/17 08:37 Potassium Chloride 100 ml @ 25 mls/hr UNSCH PRN IV For Potassium 3.3 - 3.5 mEq/L 01/02/17 07:15 01/02/17 08:39 Sodium Phosphate/ Sodium Chloride (Sodium Phosphate Inj/NS 250 ml Inj) 250 ml @ 42 mls/hr UNSCH PRN IV For Phosphorus < 2.5 mg/dL 01/02/17 07:15 01/02/17 16:43 Diltiazem HCl (Cardizem) 60 mg QID PO 01/02/17 09:00 01/03/17 09:17 Metoprolol Tartrate (Lopressor) 25 mg Q12HR PO 01/03/17 09:00 01/03/17 09:17 Objective Remarks GENERAL: Elderly female, lying in bed in nad. SKIN: Warm and dry. No bleeding. HEAD: Normocephalic. EYES: No injection or drainage. NECK: Supple, trachea midline. CARDIOVASCULAR: +S1/S2, tachy RESPIRATORY: scattered wheeze GASTROINTESTINAL: Abdomen soft, non-tender, nondistended. EXTREMITIES: No cyanosis. +1+ pitting edema. NEUROLOGICAL: awake and alert, normal speech. moving all extremities Assessment/Plan Problem List: (1) Chronic lymphocytic leukemia Status: Acute Plan: -- Last treated with obinutuzumab on 12/28. Hx/Workup: Originally diagnosed with CLL in 1989. She was on Leukeran, however this has been discontinued. In November her white count was greater than 200K. She was confirmed to have CLL infiltrating the bone marrow. She received a small dose of 100mg obinutuzumab but unfortunately developed tumor lysis syndrome following this. (2) Sepsis Status: Acute Plan: -- On Vanco, Zosyn -- Monitor for fevers -- Blood cultures show no growth x 2 days. --CXR, 01/01 shows mild opacity at left lung base (3) Tumor lysis syndrome following antineoplastic drug therapy Status: Acute Plan: --100 mg Allopurinol daily -- Daily tumor lysis labs incl BMP, Mag, Phos. -- Continue IVF (4) Elevated liver enzymes Status: Acute Plan: --bilirubin improving -- US of the liver shows a gallstone in the gallbladder neck associated with mural thickening and pericholecystic fluid. -- Discussed with Dr. Smith. No need for intervention at this time. Repeat imaging next week. Assessment 86 y/o female with history of CLL admitted for fevers and pancytopenia. Plan 1. continue antibiotics 2. agree with Bumex 1mg IV--patient initially was hesitant to take this as she doesn't want to urinate all day, but agreed after discussing the importance of bumex for her breathing. Attending Statement The exam, history, and the medical decision-making described in the above note were completed with the assistance of the mid-level provider. I reviewed and agree with the findings presented. I attest that I had a [id number] encounter with the patient on the same day, and personally performed and documented my assessment and findings in the medical record. SOB improved with diuresis. Remains afebrile. Continue abx and supportive care. Problem Qualifiers (1) Sepsis: Qualified Code: A41.9 - Sepsis, due to unspecified organism Amy Durant Jan 03, 2017 11:57 Afshin Pena MD Jan 03, 2017 12:12
--- NOTE | 2017-01-03 18:55 | HHI.IDPN ---
Subjective Subjective Remarks doing good feeling OK Afebrile no co off pressors BC remain negative Non neutropenic Antibiotics zosyn adelaida Allergies: Coded Allergies: No Known Allergies (Unverified , 12/30/16) Objective . Vital Signs Date Time Temp Pulse Resp B/P Pulse Ox O2 Delivery O2 Flow Rate FiO2 01/03/17 18:00 120 01/03/17 16:00 67 01/03/17 16:00 97.6 97 35 101/55 97 01/03/17 14:00 109 01/03/17 12:00 98.6 107 19 96/63 93 01/03/17 12:00 107 01/03/17 10:00 132 01/03/17 08:32 96 Nasal Cannula 2.00 01/03/17 08:00 134 01/03/17 08:00 97.6 126 17 104/72 93 01/03/17 06:00 134 01/03/17 04:00 97.6 130 17 121/17 94 01/03/17 04:00 130 01/03/17 02:00 128 01/03/17 00:00 120 01/03/17 00:00 98.1 120 17 132/61 94 01/02/17 22:00 123 01/02/17 20:00 98.3 109 18 106/78 94 01/02/17 20:00 109 01/02/17 01/02/17 01/03/17 15:00 23:00 07:00 Intake Total 2284 ml 873 ml 711 ml Output Total 0 ml 300 ml 450 ml Balance 2284 ml 573 ml 261 ml Intake Oral 1110 ml 120 ml 120 ml IV Total 1174 ml 753 ml 591 ml Output Urine Total 300 ml 450 ml Stool Total 0 ml # Voids 8 # Bowel Movements 0 0 0 . Laboratory Tests Test 01/02/17 01/03/17 06:25 03:30 White Blood Count 3.6 TH/MM3 2.6 TH/MM3 Red Blood Count 3.65 MIL/MM3 3.50 MIL/MM3 Hemoglobin 9.6 GM/DL 9.4 GM/DL Hematocrit 29.6 % 28.1 % Mean Corpuscular Volume 81.0 FL 80.1 FL Mean Corpuscular Hemoglobin 26.4 PG 26.8 PG Mean Corpuscular Hemoglobin 32.6 % 33.5 % Concent Red Cell Distribution Width 19.7 % 19.7 % Platelet Count 18 TH/MM3 31 TH/MM3 Mean Platelet Volume 10.6 FL 11.2 FL Neutrophils (%) (Auto) 73.2 % 68.4 % Lymphocytes (%) (Auto) 21.6 % 23.3 % Monocytes (%) (Auto) 4.1 % 5.7 % Eosinophils (%) (Auto) 0.6 % 1.6 % Basophils (%) (Auto) 0.5 % 1.0 % Neutrophils # (Auto) 2.6 TH/MM3 1.8 TH/MM3 Lymphocytes # (Auto) 0.8 TH/MM3 0.6 TH/MM3 Monocytes # (Auto) 0.1 TH/MM3 0.1 TH/MM3 Eosinophils # (Auto) 0.0 TH/MM3 0.0 TH/MM3 Basophils # (Auto) 0.0 TH/MM3 0.0 TH/MM3 CBC Comment AUTO DIFF AUTO DIFF Differential Comment AUTO DIFF AUTO DIFF CONFIRMED CONFIRMED Platelet Estimate RARE Platelet Morphology Comment NORMAL Ovalocytes 1+ 2+ [place] Cells 1+ Acanthocytes OCC Target Cells 1+ Keratocytes 1+ Laboratory Tests Test 01/02/17 01/02/17 01/03/17 01/03/17 04:30 11:10 03:30 16:30 Sodium Level 143 MEQ/L 145 MEQ/L Potassium Level 3.3 MEQ/L 3.2 MEQ/L 3.8 MEQ/L Chloride Level 111 MEQ/L 111 MEQ/L Carbon Dioxide Level 22.0 MEQ/L 23.8 MEQ/L Anion Gap 10 MEQ/L 10 MEQ/L Blood Urea Nitrogen 32 MG/DL 23 MG/DL Creatinine 1.31 MG/DL 1.30 MG/DL Estimat Glomerular Filtration 38 ML/MIN 39 ML/MIN Rate Random Glucose 167 MG/DL 145 MG/DL Uric Acid 4.7 MG/DL Calcium Level 7.7 MG/DL 7.3 MG/DL Phosphorus Level 2.5 MG/DL 2.2 MG/DL 4.0 MG/DL Magnesium Level 2.0 MG/DL 1.7 MG/DL Total Bilirubin 1.3 MG/DL 1.8 MG/DL Aspartate Amino Transf 145 U/L 66 U/L (AST/SGOT) Alanine Aminotransferase 110 U/L 94 U/L (ALT/SGPT) Alkaline Phosphatase 60 U/L 55 U/L Lactate Dehydrogenase 191 U/L Total Protein 4.4 GM/DL 4.4 GM/DL Albumin 2.0 GM/DL 2.0 GM/DL Protein Corrected Calcium 8.8 MG/DL Imaging Last Impressions Liver Ultrasound 01/01/17 0000 Signed Impressions: Service Date/Time: Sunday, January 01, 2017 08:32 - CONCLUSION: 1. Large gallstone in the gallbladder neck. The gallbladder is decompressed with some mural thickening and pericholecystic fluid. 2. Ascites and bilateral small pleural effusions. 3. Splenomegaly. Liver also appears somewhat prominent with coarsened echotexture. 4. Benign-appearing right renal and splenic parenchymal cysts. Jeremy Mullen MD Chest X-Ray 01/01/17 0000 Signed Impressions: Service Date/Time: Sunday, January 01, 2017 03:59 - CONCLUSION: Mild opacity at the left lung base representing either atelectasis or consolidation. Carlton Chavis MD Physical Exam GENERAL: No acute distress. She is awake and alert. HEENT: Head is atraumatic. Extraocular movements grossly intact, pupils reactive to light. No icterus. Oropharynx no visible lesions. NECK: Supple. No adenopathy. LUNGS: Decreased clear breath sounds HEART: Irregular rate and rhythm. No murmurs, rubs or gallops. ABDOMEN: Bowel sounds present, soft, nontender. EXTREMITIES: No clubbing or cyanosis. 1+ edema at the ankles. SKIN: No diffuse rash. NEUROLOGIC: Patient is alert and oriented. No gross focal findings. PSYCHIATRIC: The patient calm and cooperative. Assessment & Plan Remarks IMPRESSION 1. Fever 2. CLL 3. Pancytopenia following chemotherapy 4. Sepsis. 5. Gallbladder disease suspicious for calculous cholecystitis on ultrasound but clinically not symptomatic. RECOMMENDATIONS 1. cont zosyn. 3. dc vancomycin. 4. Monitor temperature 5. Monitor blood cultures. repeat US in 1-2 days Edda Giron MD Jan 03, 2017 18:54
[2017-01-04] VITALS (14 sets, daily range): BP systolic 98–110; BP diastolic 53–59; PULSE 65–131; RESP 16–28; TEMP 97.9–101.7; O2SAT 92–97
[2017-01-04] MEDS: CHLORHEXIDINE GLUCONATE 2 % 1 PACK (2 CLOTHS) TOP SCH (04:00)
[2017-01-04] MEDS: PIPERACIL-TAZO 3.375 GM PREMIX 50 ML IV SCH (04:21)
[2017-01-04] MEDS: LEVOTHYROXINE SODIUM 75 MCG TAB PO SCH (04:21)
[2017-01-04 04:50] LABS: AUTOMATED NEUTROPHIL # 3.8 TH/MM3 (1.8-7.7); BASOPHIL % 0.4 % (0.0-2.0); EOSINOPHIL # 0.1 TH/MM3 (0-0.4); EOSINOPHIL % 1.5 % (0.0-4.0); LYMPH % 13.4 % (9.0-44.0); LYMPHOCYTE # 0.6 TH/MM3 (1.0-4.8); MEAN CELL VOLUME 80.6 FL (80.0-100.0); MEAN CORPUSCULAR HGB CONC 32.3 % (32.0-36.0); MONO % 4.6 % (0.0-8.0); NEUT % 80.1 % (16.0-70.0); PLATELET COUNT 56 TH/MM3 (150-450); RED BLOOD COUNT 3.73 MIL/MM3 (4.00-5.30); RED CELL DISTRIBUTION WIDTH 19.3 % (11.6-17.2); WHITE BLOOD COUNT 4.8 TH/MM3 (4.0-11.0)
[2017-01-04 05:01] LABS: HEMO FLAGS AUTO DIFF
[2017-01-04 05:24] LABS: ALKALINE PHOSPHATASE 57 U/L (45-117); ALT (GPT) 89 U/L (10-53); ANION GAP 8 MEQ/L (5-15); AST (GOT) 55 U/L (15-37); BLOOD UREA NITROGEN 19 MG/DL (7-18); CHLORIDE 107 MEQ/L (98-107); MAGNESIUM 1.8 MG/DL (1.5-2.5); POTASSIUM 3.4 MEQ/L (3.5-5.1); SODIUM (NA) 143 MEQ/L (136-145); TOTAL BILIRUBIN ADULT 1.6 MG/DL (0.2-1.0)
[2017-01-04 05:39] LABS: GLOMERULAR FILTRATION RATE 36 ML/MIN (>89)
[2017-01-04] MEDS: INSULIN ASPART SUPPLEMENTAL SCALE SQ SCH ×4 (06:44→21:00)
[2017-01-04 06:53] LABS: KERATOCYTES OCC (NORMAL); OVALOCYTES 1+ (NORMAL)
[2017-01-04 06:54] LABS: PLATELET ESTIMATE SMEAR LOW (NORMAL); PLATELET MORPHOLOGY NORMAL (NORMAL); SCAN/DIFF AUTO DIFF CONFIRMED
--- NOTE | 2017-01-04 07:23 | HHI.CCPN ---
Subjective Remarks/Hospital Course 86 yo F with PMH of CLL originally diagnosed in 1998, diabetes mellitus, hypercholesterolemia, hypothyroidism, CKD. She had been treated with Leukoveran which was discontinued about 8 months ago. She had progression of disease consisting of doubling of WBC, presence of thrombocytopenia and anemia and therefore was started on chemotherapy with obinutuzumab (given initial test dose 12/21/16). She developed hypotension and hypoxia following chemo and was [place] [facility] [place] and found to have abrupt response in therapy. She developed tumor lysis syndrome. She was discharged on levaquin. She states that she had chemo again on 12/28/16. Tonight she developed fever 101 and contacted her oncologist, Dr. King who recommended evaluation in the ED. She states that she feels fatigued. Had one episode of diarrhea yesterday. Complains of nausea without vomiting. Complains of Mild headache without neck pain or stiffness. Denies sore throat, chest pain, cough, SOB, abdominal Pain, tenderness or drainage at the port site. Blood cultures have been obtained in the emergency department. Influenza is negative. Urinalysis is unremarkable. Her white blood cell count is 4.6, hemoglobin 9.7, platelets 22, creatinine 2. Heart rate was initially 105-117 in the ED but has improved with IV fluids and is currently in 80s to 90s. She had a blood pressure of 70/42 with mean arterial pressure of 51. She received 2 L normal saline bolus in the ED and subsequent mean arterial pressure has been 65-84. She has voided in the ED. Lactic acid is normal. She received vancomycin and cefepime in the ED. 01/01 Patient is lying in be din NAD. Afebrile. On Vasopressin 0.04 mics. Afebrile. s/p transfusion 2u PRBC yesterday for Hgb 7.0 Hgb 8.0 this morning with PLT 19. 01/02 Patient is awake and alert off Vasopressin placed on Cardizem drip 12mg/hr overnight for Afib with RVR. 01/03 Patient remains on Cardizem drip 15mg/hr. Awake and alert, denies any SOB or abdominal pain. 01/04 No acute events overnight. Remains on Cardizem drip. Afebrile. Objective Vital Signs Date Time Temp Pulse Resp B/P Pulse Ox O2 Delivery O2 Flow Rate FiO2 01/04/17 06:00 127 01/04/17 04:00 98.1 28 103/59 95 01/03/17 08:32 Nasal Cannula 2.00 Intake and Output 01/03/17 01/03/17 01/04/17 08:00 16:00 00:00 Intake Total 711 ml 1652 ml 214 ml Output Total 450 ml 6 ml 300 ml Balance 261 ml 1646 ml -86 ml Result Diagram: 01/04/17 0420 01/04/17 0420 Other Results Laboratory Tests Test 01/03/17 01/04/17 16:30 04:20 Potassium Level 3.8 MEQ/L 3.4 MEQ/L White Blood Count 4.8 TH/MM3 Red Blood Count 3.73 MIL/MM3 Hemoglobin 9.7 GM/DL Hematocrit 30.0 % Mean Corpuscular Volume 80.6 FL Mean Corpuscular Hemoglobin 26.0 PG Mean Corpuscular Hemoglobin 32.3 % Concent Red Cell Distribution Width 19.3 % Platelet Count 56 TH/MM3 Mean Platelet Volume 10.5 FL Neutrophils (%) (Auto) 80.1 % Lymphocytes (%) (Auto) 13.4 % Monocytes (%) (Auto) 4.6 % Eosinophils (%) (Auto) 1.5 % Basophils (%) (Auto) 0.4 % Neutrophils # (Auto) 3.8 TH/MM3 Lymphocytes # (Auto) 0.6 TH/MM3 Monocytes # (Auto) 0.2 TH/MM3 Eosinophils # (Auto) 0.1 TH/MM3 Basophils # (Auto) 0.0 TH/MM3 CBC Comment AUTO DIFF Differential Comment AUTO DIFF CONFIRMED Platelet Estimate LOW Platelet Morphology Comment NORMAL Ovalocytes 1+ Keratocytes OCC Sodium Level 143 MEQ/L Chloride Level 107 MEQ/L Carbon Dioxide Level 28.0 MEQ/L Anion Gap 8 MEQ/L Blood Urea Nitrogen 19 MG/DL Creatinine 1.39 MG/DL Estimat Glomerular Filtration 36 ML/MIN Rate Random Glucose 175 MG/DL Calcium Level 7.6 MG/DL Phosphorus Level 2.9 MG/DL Magnesium Level 1.8 MG/DL Total Bilirubin 1.6 MG/DL Aspartate Amino Transf 55 U/L (AST/SGOT) Alanine Aminotransferase 89 U/L (ALT/SGPT) Alkaline Phosphatase 57 U/L Total Protein 4.5 GM/DL Albumin 2.2 GM/DL Imaging Last Impressions Liver Ultrasound 01/01/17 0000 Signed Impressions: Service Date/Time: Sunday, January 01, 2017 08:32 - CONCLUSION: 1. Large gallstone in the gallbladder neck. The gallbladder is decompressed with some mural thickening and pericholecystic fluid. 2. Ascites and bilateral small pleural effusions. 3. Splenomegaly. Liver also appears somewhat prominent with coarsened echotexture. 4. Benign-appearing right renal and splenic parenchymal cysts. Jeremy Mullen MD Chest X-Ray 01/01/17 0000 Signed Impressions: Service Date/Time: Sunday, January 01, 2017 03:59 - CONCLUSION: Mild opacity at the left lung base representing either atelectasis or consolidation. Carlton Chavis MD Objective Remarks GENERAL: Patient is 86 yo lying in bed in NAD SKIN: Warm and dry. HEAD: Normocephalic. EYES: No scleral icterus. No injection or drainage. NECK: Supple, trachea midline. No JVD or lymphadenopathy. CARDIOVASCULAR: Tachycardic, irregular without murmurs, gallops, or rubs. RESPIRATORY: Breath sounds equal bilaterally. No accessory muscle use. GASTROINTESTINAL: Abdomen soft, non-tender, nondistended. MUSCULOSKELETAL: No cyanosis, or edema. BACK: Nontender without obvious deformity. No CVA tenderness. Neuro: Awake and alert A/P Assessment and Plan NEURO: Tylenol as needed for mild pain. Lortab as needed for moderate pain. Morphine when necessary for breakthrough pain. RESP: Continue with oxygen keep sat >92% Bronchodilators CXR 01/01 mild opacity in left lung base atelectasis vs consolidation CV: Atrial fibrillation Prior history of hypertension Wean off Cardizem drip,on PO Cardizem 60mg QID, increase Lopressor 50mg BID- monitor HR and BP keep MAP>65mmHg Check echo to eval LV function statin on hold for elevated LFT's. GI: On PO diet Monitor LFT's ( Trending down) US Liver: Large gallstone in the gallbladder neck. The gallbladder is decompressed with some mural thickening and pericholecystic fluid. Ascites and bilateral small pleural effusions. Splenomegaly. Liver also appears somewhat prominent with coarsened echotexture. Benign-appearing right renal and splenic parenchymal cysts. Discussed with IR 01/01 [address] perc cholecystostomy tube. Patient denies any abd pain will monitor clinically. Repeat US liver today FEN/RENAL: MATILDA overlying CKD stage III Tumor lysis syndrome Continue allopurinol 100 mg po daily. Monitor renal function, I/O's, avoid nephrotoxins. Will need K replacement today ID: s/p Fever Left chest port in situ. Influenza screen negative Continue Empiric coverage for sepsis with Zosyn, off Vanco. ID is following- Dr. Thibodeaux. Monitor for signs of infections ( Fever, WBC) BC 12/30: NGTD HEME: CLL Thrombocytopenia- improving Pancytopenia Monitor CBC. s/p transfusion 2U PRBC 12/31 Oncology- Dr. King. Further transfusion per Heme Chemotherapy with obinutuzumab, last dose 12/28/16 ENDO: Type 2 diabetes mellitus Hypothyroidism Low-dose insulin sliding scale ACh S TSH is normal 12/22/16. Continue Synthroid 75 g by mouth daily PROPH: SCDs for DVT prophylaxis. Not on pharmacologic DVT prophylaxis due to thrombocytopenia ACCESS: L chest port accessed. Will sign of and transfer care to [facility] Level 3 Amol Gordon MD Jan 04, 2017 07:23
[2017-01-04] MEDS: DILTIAZEM INJ 125 MG in SODIUM CHLORIDE 0.9% INJ 100 ML IV SCH (07:24)
[2017-01-04] MEDS: RESP: ALBUTEROL 2.5 MG/3 ML NEB (PRN) INH (07:49)
[2017-01-04] MEDS: METOPROLOL TARTRATE 25 MG TAB PO SCH ×2 (08:37→21:00)
[2017-01-04] MEDS: DOCUSATE SODIUM 100 MG CAP PO SCH ×2 (08:37→21:00)
[2017-01-04] MEDS: DILTIAZEM HCL 60 MG TAB PO SCH ×5 (08:37→21:00)
[2017-01-04] MEDS ORDERED: PHARMACY ORDERED LAB ONE (09:45)
--- NOTE | 2017-01-04 10:16 | RADRPT ---
EXAM DATE/TIME: 01/04/2017 09:27 [facility] COMPARISON: US ABDOMEN - LIVER, January 01, 2017, 8:32. [place] [facility], CT Abdomen, December 11, 2016POI, Ultrasound Kidney, 11/16/16. INDICATIONS : Increased lab values. MEDICAL HISTORY : Hypothyroidism. Hypercholesterolemia. Hypertension. A-Fib. Leukemia. Diabetes type 2. SURGICAL HISTORY : Appendectomy. ENCOUNTER: Subsequent ACUITY: 1 day PAIN SCORE: 0/10 LOCATION: Bilateral upper quadrant MEASUREMENTS: LIVER: 20.6 cm length COMMON DUCT: 5 mm RIGHT KIDNEY: 11.4 x 4.4 x 3.8 cm SPLEEN: 14.2 cm length FINDINGS: LIVER: There is heterogeneous echotexture of the liver. The liver is mildly enlarged. COMMON DUCT: No intraluminal mass or stone visualized. GALLBLADDER: The examination demonstrates a 2.6 x 1.9 cm stone within the dependent portion of the gallbladder. No paracolic cystic fluid is identified. PANCREAS: The visualized portions are within normal limits. RIGHT KIDNEY: No hydronephrosis, stone or solid mass. The exam does demonstrate a 2.0 x 1.9 CM simple cyst. SPLEEN: The spleen is enlarged. There is a 1.9 x 1.7 x 1.8 cm simple cyst within the spleen. This is stable c ompared to previous examination. CONCLUSION: 1. Heterogeneous echotexture the liver the liver is mildly enlarged. 2. Bilateral pleural effusions. 3. Stable 1.9 x 1.8 cm simple cyst within the liver. 4. Stable simple cyst within the right kidney. 5. 2.6 x 1.9 cm gallstone within the dependent portion of the gallbladder. Ken Banks MD on January 04, 2017 at 10:11 Board Certified Radiologist. This report was verified electronically.
[2017-01-04] MEDS: PANTOPRAZOLE SODIUM 40 MG VIAL IV SCH (10:31)
[2017-01-04] MEDS: ALLOPURINOL 100 MG TAB PO SCH (10:31)
[2017-01-04] MEDS ORDERED: POTASSIUM CHLORIDE 10 MEQ CONTROLLED RELEASE TAB PO ONE (11:00)
[2017-01-04] MEDS: PIPERACIL-TAZO 2.25 GM PREMIX 50 ML IV SCH ×2 (11:36→17:43)
--- NOTE | 2017-01-04 12:49 | HHI.IDPN ---
Subjective Subjective Remarks [facility] for Mrs. Chavez is a pleasant 86-year-old woman initially diagnosed CLL in 1989. She received Leukeran as treatment in [id number]. Leukeran was discontinued to the cytopenias. However after stopping Leukeran, her white count has doubled over a short period of time to a white count of greater than 200,000 in November. She was confirmed to have CLL infiltrating the bone marrow. Ultimately, it was decided she needs treatment. Her first dose of obinutuzumab was administered. On a small dose of 100 mg, her course was complicated by acute tumor lysis syndrome the following day with renal function worsening. Uric acid increased, calcium decreased, potassium decreased, however it resulted in a significant response of her white count decreasing to 32,000. She was supported with IV fluid hydration during the last admission. She met with Dr. Yao who placed an [id number]-C-Rsjr during the hospitalization prior to being discharged home. On December 28, she resumed her treatment for the CLL. She had recovered. Her course was complicated by some tachycardia from her atrial fibrillation during the infusion. Dr. Guadarrama's office, her cytotechnologist/histotechnologist was consulted. She was given an extra dose of metoprolol. We were able to administer chemotherapy uneventfully well. She had a follow up with Dr. Guadarrama the day prior to her admission. On day of admission patient had fevers, blood cultures drawn, patient tachycardic and concern for sepsis so patient admitted to and then transferred to [facility]. Overnight events reviewed. doing good feeling tired. Afebrile No abdominal pain. off pressors BC remain negative Non neutropenic Antibiotics zosyn IV Lines Port site with no e.o infection Past Medical History reviewed Allergies: Coded Allergies: No Known Allergies (Unverified , 12/30/16) Objective . Vital Signs Date Time Temp Pulse Resp B/P Pulse Ox O2 Delivery O2 Flow Rate FiO2 01/04/17 07:49 95 Nasal Cannula 3.00 01/04/17 06:00 127 01/04/17 04:00 123 01/04/17 04:00 98.1 123 28 103/59 95 01/04/17 02:00 92 01/04/17 00:00 67 01/04/17 00:00 97.9 67 19 98/53 94 01/03/17 22:00 101 01/03/17 20:00 80 01/03/17 20:00 97.7 80 23 112/67 95 01/03/17 18:00 120 01/03/17 16:00 67 01/03/17 16:00 97.6 97 35 101/55 97 01/03/17 14:00 109 01/03/17 01/03/17 01/04/17 15:00 23:00 07:00 Intake Total 1652 ml 214 ml 72 ml Output Total 6 ml 300 ml 125 ml Balance 1646 ml -86 ml -53 ml Intake Oral 888 ml 120 ml 0 ml IV Total 764 ml 94 ml 72 ml Output Urine Total 6 ml 300 ml 125 ml # Bowel Movements 1 1 1 . Laboratory Tests Test 01/03/17 01/04/17 03:30 04:20 White Blood Count 2.6 TH/MM3 4.8 TH/MM3 Red Blood Count 3.50 MIL/MM3 3.73 MIL/MM3 Hemoglobin 9.4 GM/DL 9.7 GM/DL Hematocrit 28.1 % 30.0 % Mean Corpuscular Volume 80.1 FL 80.6 FL Mean Corpuscular Hemoglobin 26.8 PG 26.0 PG Mean Corpuscular Hemoglobin 33.5 % 32.3 % Concent Red Cell Distribution Width 19.7 % 19.3 % Platelet Count 31 TH/MM3 56 TH/MM3 Mean Platelet Volume 11.2 FL 10.5 FL Neutrophils (%) (Auto) 68.4 % 80.1 % Lymphocytes (%) (Auto) 23.3 % 13.4 % Monocytes (%) (Auto) 5.7 % 4.6 % Eosinophils (%) (Auto) 1.6 % 1.5 % Basophils (%) (Auto) 1.0 % 0.4 % Neutrophils # (Auto) 1.8 TH/MM3 3.8 TH/MM3 Lymphocytes # (Auto) 0.6 TH/MM3 0.6 TH/MM3 Monocytes # (Auto) 0.1 TH/MM3 0.2 TH/MM3 Eosinophils # (Auto) 0.0 TH/MM3 0.1 TH/MM3 Basophils # (Auto) 0.0 TH/MM3 0.0 TH/MM3 CBC Comment AUTO DIFF AUTO DIFF Differential Comment AUTO DIFF AUTO DIFF CONFIRMED CONFIRMED Target Cells 1+ Ovalocytes 2+ 1+ Keratocytes 1+ OCC Platelet Estimate LOW Platelet Morphology Comment NORMAL Laboratory Tests Test 01/03/17 01/03/17 01/04/17 03:30 16:30 04:20 Sodium Level 145 MEQ/L 143 MEQ/L Potassium Level 3.2 MEQ/L 3.8 MEQ/L 3.4 MEQ/L Chloride Level 111 MEQ/L 107 MEQ/L Carbon Dioxide Level 23.8 MEQ/L 28.0 MEQ/L Anion Gap 10 MEQ/L 8 MEQ/L Blood Urea Nitrogen 23 MG/DL 19 MG/DL Creatinine 1.30 MG/DL 1.39 MG/DL Estimat Glomerular Filtration 39 ML/MIN 36 ML/MIN Rate Random Glucose 145 MG/DL 175 MG/DL Calcium Level 7.3 MG/DL 7.6 MG/DL Protein Corrected Calcium 8.8 MG/DL Phosphorus Level 4.0 MG/DL 2.9 MG/DL Magnesium Level 1.7 MG/DL 1.8 MG/DL Total Bilirubin 1.8 MG/DL 1.6 MG/DL Aspartate Amino Transf 66 U/L 55 U/L (AST/SGOT) Alanine Aminotransferase 94 U/L 89 U/L (ALT/SGPT) Alkaline Phosphatase 55 U/L 57 U/L Total Protein 4.4 GM/DL 4.5 GM/DL Albumin 2.0 GM/DL 2.2 GM/DL Imaging Last Impressions Liver Ultrasound 01/01/17 0000 Signed Impressions: Service Date/Time: Sunday, January 01, 2017 08:32 - CONCLUSION: 1. Large gallstone in the gallbladder neck. The gallbladder is decompressed with some mural thickening and pericholecystic fluid. 2. Ascites and bilateral small pleural effusions. 3. Splenomegaly. Liver also appears somewhat prominent with coarsened echotexture. 4. Benign-appearing right renal and splenic parenchymal cysts. Jeremy Mullen MD Chest X-Ray 01/01/17 0000 Signed Impressions: Service Date/Time: Sunday, January 01, 2017 03:59 - CONCLUSION: Mild opacity at the left lung base representing either atelectasis or consolidation. Carlton Chavis MD Physical Exam GENERAL: No acute distress. She is awake and alert. HEENT: Head is atraumatic. Extraocular movements grossly intact, pupils reactive to light. No icterus. Oropharynx no visible lesions. NECK: Supple. No adenopathy. LUNGS: Decreased clear breath sounds HEART: Irregular rate and rhythm. No murmurs, rubs or gallops. ABDOMEN: Bowel sounds present, soft, nontender. EXTREMITIES: No clubbing or cyanosis. 1+ edema at the ankles. SKIN: No diffuse rash. NEUROLOGIC: Patient is alert and oriented. No gross focal findings. PSYCHIATRIC: The patient calm and cooperative. Assessment & Plan Remarks IMPRESSION 1. Fever possible sepsis on admission. Immune compromised host. 2. CLL 3. Pancytopenia following chemotherapy now improved. 4. Gallbladder disease suspicious for acute calculous cholecystitis on ultrasound but clinically not symptomatic. 5. Abnormal LFTs: cholecystitis, sepsis 6. Acute renal failure: sepsis, prerenal, meds. RECOMMENDATIONS cont Zosyn IV Monitor LFTs. Consider GI consult no other source of infection other than calculous cholecystitis. Monitor temperature Monitor blood cultures. Ketty Foreman MD Jan 04, 2017 12:49
--- NOTE | 2017-01-04 13:03 | PD.ONC.PN ---
Subjective Subjective Remarks Afebrile overnight. Pt resting in bed about to get an echocardiogram. She tells me she had some abdominal cramps this morning, but after moving her bowels she feels much better. Per RN, she is down to 10mg/hr on her cardizem gtt. Objective Data Date Time Temp Pulse Resp B/P Pulse Ox O2 Delivery O2 Flow Rate FiO2 01/04/17 07:49 95 Nasal Cannula 3.00 01/04/17 06:00 127 01/04/17 04:00 123 01/04/17 04:00 98.1 123 28 103/59 95 01/04/17 02:00 92 01/04/17 00:00 67 01/04/17 00:00 97.9 67 19 98/53 94 01/03/17 22:00 101 01/03/17 20:00 80 01/03/17 20:00 97.7 80 23 112/67 95 01/03/17 18:00 120 01/03/17 16:00 67 01/03/17 16:00 97.6 97 35 101/55 97 01/03/17 14:00 109 01/04/17 01/04/17 01/04/17 07:00 15:00 23:00 Intake Total 72 ml Output Total 125 ml Balance -53 ml Result Diagram: 01/04/17 0420 01/04/17 0420 Laboratory Results Laboratory Tests Test 01/03/17 01/04/17 16:30 04:20 Potassium Level 3.8 MEQ/L 3.4 MEQ/L White Blood Count 4.8 TH/MM3 Red Blood Count 3.73 MIL/MM3 Hemoglobin 9.7 GM/DL Hematocrit 30.0 % Mean Corpuscular Volume 80.6 FL Mean Corpuscular Hemoglobin 26.0 PG Mean Corpuscular Hemoglobin 32.3 % Concent Red Cell Distribution Width 19.3 % Platelet Count 56 TH/MM3 Mean Platelet Volume 10.5 FL Neutrophils (%) (Auto) 80.1 % Lymphocytes (%) (Auto) 13.4 % Monocytes (%) (Auto) 4.6 % Eosinophils (%) (Auto) 1.5 % Basophils (%) (Auto) 0.4 % Neutrophils # (Auto) 3.8 TH/MM3 Lymphocytes # (Auto) 0.6 TH/MM3 Monocytes # (Auto) 0.2 TH/MM3 Eosinophils # (Auto) 0.1 TH/MM3 Basophils # (Auto) 0.0 TH/MM3 CBC Comment AUTO DIFF Differential Comment AUTO DIFF CONFIRMED Platelet Estimate LOW Platelet Morphology Comment NORMAL Ovalocytes 1+ Keratocytes OCC Sodium Level 143 MEQ/L Chloride Level 107 MEQ/L Carbon Dioxide Level 28.0 MEQ/L Anion Gap 8 MEQ/L Blood Urea Nitrogen 19 MG/DL Creatinine 1.39 MG/DL Estimat Glomerular Filtration 36 ML/MIN Rate Random Glucose 175 MG/DL Calcium Level 7.6 MG/DL Phosphorus Level 2.9 MG/DL Magnesium Level 1.8 MG/DL Total Bilirubin 1.6 MG/DL Aspartate Amino Transf 55 U/L (AST/SGOT) Alanine Aminotransferase 89 U/L (ALT/SGPT) Alkaline Phosphatase 57 U/L Total Protein 4.5 GM/DL Albumin 2.2 GM/DL Imaging Studies Last 24 hours Impressions Liver Ultrasound 01/04/17 0000 Signed Impressions: Service Date/Time: Wednesday, January 04, 2017 09:27 - CONCLUSION: 1. Heterogeneous echotexture the liver the liver is mildly enlarged. 2. Bilateral pleural effusions. 3. Stable 1.9 x 1.8 cm simple cyst within the liver. 4. Stable simple cyst within the right kidney. 5. 2.6 x 1.9 cm gallstone within the dependent portion of the gallbladder. Ken Banks MD Administered Medications Medications (Trade) Dose Ordered Sig/Loretta Route PRN Reason Start Time Stop Time Status Last Admin Dose Admin Heparin Sodium (Porcine) (Heparin Central Flush) 500 units DAILY IV FLUSH 12/31/16 09:00 01/03/17 08:18 Allopurinol (Zyloprim) 100 mg DAILY PO 12/31/16 09:00 01/04/17 10:31 Levothyroxine Sodium (Synthroid) 75 mcg DAILY@06 PO 12/31/16 06:00 01/04/17 04:21 Acetaminophen (Tylenol) 650 mg Q6H PRN PO PAIN 1-3 OR TEMP >101 12/31/16 03:30 12/31/16 06:06 Pantoprazole Sodium (Protonix Inj) 40 mg DAILY IV 12/31/16 09:00 01/04/17 10:31 Docusate Sodium (Colace) 100 mg BID PO 12/31/16 09:00 01/01/17 20:57 Chlorhexidine Gluconate 3 pack 3 pack Taper DAILY@04 TOP 12/31/16 04:00 12/27/17 03:59 01/03/17 03:30 Diltiazem HCl 125 mg/Sodium Chloride 125 ml @ 0 mls/hr TITRATE IV 01/02/17 01:15 01/04/17 07:24 Potassium Chloride 100 ml @ 50 mls/hr Q2H PRN IV For Potassium 2.8 - 3.2 mEq/L 01/02/17 07:15 01/03/17 08:37 Potassium Chloride 100 ml @ 25 mls/hr UNSCH PRN IV For Potassium 3.3 - 3.5 mEq/L 01/02/17 07:15 01/02/17 08:39 Sodium Phosphate/ Sodium Chloride (Sodium Phosphate Inj/NS 250 ml Inj) 250 ml @ 42 mls/hr UNSCH PRN IV For Phosphorus < 2.5 mg/dL 01/02/17 07:15 01/02/17 16:43 Diltiazem HCl (Cardizem) 60 mg QID PO 01/02/17 09:00 01/04/17 08:37 Metoprolol Tartrate 50 mg 50 mg Q12HR PO 01/04/17 09:00 01/04/17 08:37 Piperacillin Sod/ Tazobactam Sod (Zosyn 2.25 Gm Premix) 50 ml @ 100 mls/hr Q6H IV 01/04/17 12:00 01/04/17 11:36 Objective Remarks GENERAL: Elderly female, lying in bed in no distress. SKIN: Warm and dry. No bleeding. HEAD: Normocephalic. EYES: No injection or drainage. NECK: Supple, trachea midline. CARDIOVASCULAR: +S1/S2. Afib on monitor in low 100's. RESPIRATORY: Lungs with coarse crackles at bases. GASTROINTESTINAL: Abdomen soft, non-tender, nondistended. EXTREMITIES: No cyanosis. SCD's to BLE. NEUROLOGICAL: Normal speech. Moving all extremities. A&Ox3. Assessment/Plan Problem List: (1) Chronic lymphocytic leukemia Status: Acute Plan: -- Last treated with obinutuzumab on 12/28. Hx/Workup: Originally diagnosed with CLL in 1989. She was on Leukeran, however this has been discontinued. In November her white count was greater than 200K. She was confirmed to have CLL infiltrating the bone marrow. She received a small dose of 100mg obinutuzumab but unfortunately developed tumor lysis syndrome following this. (2) Sepsis Status: Acute Plan: -- On Vanco, Zosyn -- Monitor for fevers -- Blood cultures show no growth x 2 days. --CXR, 01/01 shows mild opacity at left lung base (3) Tumor lysis syndrome following antineoplastic drug therapy Status: Acute Plan: --100 mg Allopurinol daily -- Daily tumor lysis labs incl BMP, Mag, Phos. -- Continue IVF (4) Elevated liver enzymes Status: Acute Plan: --bilirubin improving -- US of the liver shows a gallstone in the gallbladder neck associated with mural thickening and pericholecystic fluid. -- Discussed with Dr. Smith. No need for intervention at this time. Repeat imaging next week. Assessment 86 y/o female with history of CLL admitted for fevers and pancytopenia. Plan 1. Pancytopenia much improved. 2. Liver enzymes improving 3. Continue Abx per ID 4. Monitor blood counts, supportive care. Attending Statement The exam, history, and the medical decision-making described in the above note were completed with the assistance of the mid-level provider. I reviewed and agree with the findings presented. I attest that I had a [id number] encounter with the patient on the same day, and personally performed and documented my assessment and findings in the medical record. Pt seen and examined. Discussed w/ her nurse, febrile this afternoon, temporally related to stopping Vancomycin 01/03. Noted blood cultures neg from 12/30 HR controlled - off cardizem drip Platelets recovered, bili still elevated but trending down, Hgb stable. Repeat blood culture. Problem Qualifiers (1) Sepsis: Qualified Code: A41.9 - Sepsis, due to unspecified organism Margaret Bush Jan 04, 2017 13:03 Ofelia King MD Jan 04, 2017 19:21
--- NOTE | 2017-01-04 13:03 | RADRPT ---
EXAM DATE/TIME: 01/04/2017 12:19 [facility] COMPARISON: CHEST SINGLE AP, January 01, 2017, 3:59. INDICATIONS : Short of breath MEDICAL HISTORY : None. SURGICAL HISTORY : Port placement ENCOUNTER: Subsequent ACUITY: 1 day PAIN SCORE: 1/10 LOCATION: Bilateral chest FINDINGS: Left chest port catheter is stable. Hazy bibasilar parenchymal opacity is present suggesting possible developing layering effusion. Cardiac contours are grossly stable. CONCLUSION: Worsening aeration Carlton Weiss MD on January 04, 2017 at 12:59 Board Certified Radiologist. This report was verified electronically.
--- NOTE | 2017-01-04 15:26 | EC ---
Study Study Date:01/04/2017 STUDY CONCLUSIONS SUMMARY - Left ventricle: The cavity size was normal. Wall thickness was normal. Systolic function was normal. The estimated ejection fraction was 55%, in the range of 55% to 60%. Wall motion was normal; there were no regional wall motion abnormalities. - Aortic valve: Valve area: 2.89cm^2(VTI). Valve area: 3.19cm^2 (Vmax). - Mitral valve: Mildly calcified annulus. - Left atrium: The atrium was mildly dilated. - Pulmonary arteries: PA peak pressure: 44mm Hg (S). If LV function is below 40, please consider prescribing an ACEI or ARB or document rationale for non-use. PROCEDURE DATA STUDY STATUS: Elective. Procedure: Transthoracic echocardiography. Image quality was good. Scanning was performed from the parasternal, apical, and subcostal acoustic windows. Study completion: The patient tolerated the procedure well. Transthoracic echocardiography. M-mode, complete 2D, complete spectral Doppler, and color Doppler. Height: Height: 69in. Weight: Weight: 174.6lb. Body mass index: BMI: 25.8kg/m^2. Body surface area: BSA: 1.95m^2. Patient status: Inpatient. CARDIAC ANATOMY LEFT VENTRICLE: The cavity size was normal. Wall thickness was normal. Systolic function was normal. The estimated ejection fraction was 55%, in the range of 55% to 60%. Wall motion was normal; there were no regional wall motion abnormalities. AORTIC VALVE: Trileaflet; normal thickness leaflets. Doppler: Transvalvular velocity was within the normal range. There was no stenosis. Trace to mild regurgitation. Valve area: 2.89cm^2(VTI). Indexed valve area: 1.48cm^2/m^2 (VTI). Valve area: 3.19cm^2 (Vmax). Indexed valve area: 1.64cm^2/m^2 (Vmax). Mean gradient: 4mm Hg (S). AORTA: Aortic root: The aortic root was normal in size. MITRAL VALVE: Mildly calcified annulus. Doppler: Transvalvular velocity was within the normal range. There was no evidence for stenosis. Trace regurgitation. Peak gradient: 5mm Hg (D). LEFT ATRIUM: The atrium was mildly dilated. RIGHT VENTRICLE: The cavity size was normal. Wall thickness was normal. PULMONIC VALVE: Doppler: Transvalvular velocity was within the normal range. There was no evidence for stenosis. No regurgitation. TRICUSPID VALVE: Structurally normal valve. Doppler: Transvalvular velocity was within the normal range. Trace to mild regurgitation. PULMONARY ARTERY: The main pulmonary artery was normal-sized. Systolic pressure was within the normal range. RIGHT ATRIUM: The atrium was normal in size. PERICARDIUM: There was no pericardial effusion. SYSTEMIC VEINS: Inferior vena cava: The vessel was normal in size. Patient weight: 174.6lb _Ejection fraction:_ 65-75% _Fractional shortening:_ 32% up to 5Kg 5-11.5Kg 11.6-22.9Kg 23-45Kg 45-57Kg Aortic Root 7-13 <17 13-22 17-27 17-27 LA diam 6-13 <23 24-38 33-47 37-40 RVID 10-17 7-15 7-15 7-18 8-17 LVIDd 12-22 <32 24-38 33-47 37-40 LVPW 2-4 3-6 5-7 6-8 7-8 IVS 2-4 3-6 5-7 6-8 7-8 BASIC MEASUREMENTS ADULT NORMAL Left ventricle LV internal dimension, ED, chordal 43.6 mm 43-52 level, PLAX LV internal dimension, ES, chordal 32.1 mm 23-38 level, PLAX Fractional shortening, chordal level, *26 % >29 PLAX LV posterior wall thickness, ED 10.3 mm IVS/LVPW ratio, ED 0.9 <1.3 Ventricular septum Septal thickness, ED 9.23 mm Aortic valve Leaflet separation 19 mm 15-26 Aorta Root diameter, ED 31 mm BASIC MEASUREMENTS ADULT NORMAL Aortic valve Leaflet separation 19 mm 15-26 DOPPLER MEASUREMENTS ADULT NORMAL Main pulmonary artery Pressure, S *44 mm Hg =30 Aortic valve Peak velocity, S 120 cm/s Mean velocity, S 85.8 cm/s VTI, S 23.5 cm Mean gradient, S 4 mm Hg Valve area, VTI 2.89 cm^2 Valve area index, VTI 1.48 cm^2/m^2 Valve area, Vmax 3.19 cm^2 Valve area index, Vmax 1.64 cm^2/m^2 Regurgitant velocity, ED 330 cm/s Regurgitant deceleration 1830 cm/s^2 Regurgitant pressure half-time 529 ms Regurgitant gradient, ED 44 mm Hg Mitral valve Peak E-wave velocity 107 cm/s Deceleration time 225 ms 150-230 Peak gradient, D 5 mm Hg Tricuspid valve Regurgitant peak velocity 290 cm/s Peak RV-RA gradient, S 34 mm Hg Maximal regurgitant velocity 290 cm/s Systemic veins Estimated CVP 10 mm Hg Right ventricle RV pressure, S *46 mm Hg <30 Pulmonic valve Peak velocity, S 71.5 cm/s LEGEND: Mean values are shown as u=mean value. Asterisk (*) olmos values outside specified normal range. Prepared and signed by Vaibhav Jarrett [id number]
[2017-01-04] MEDS: ACETAMINOPHEN 325 MG TAB PO PRN (17:47)
[2017-01-05] VITALS (13 sets, daily range): BP systolic 102–123; BP diastolic 55–58; PULSE 63–115; RESP 14–26; TEMP 97.1–98.9; O2SAT 90–99
[2017-01-05] MEDS: PIPERACIL-TAZO 2.25 GM PREMIX 50 ML IV SCH ×5 (00:43→23:14)
[2017-01-05 03:53] LABS: AUTOMATED NEUTROPHIL # 4.7 TH/MM3 (1.8-7.7); BASOPHIL % 0.6 % (0.0-2.0); EOSINOPHIL % 0.8 % (0.0-4.0); HEMATOCRIT 25.4 % (35.0-46.0); HEMO FLAGS AUTO DIFF; LYMPH % 13.3 % (9.0-44.0); LYMPHOCYTE # 0.8 TH/MM3 (1.0-4.8); MEAN CELL VOLUME 80.5 FL (80.0-100.0); MEAN CORPUSCULAR HEMOGLOBIN 26.5 PG (27.0-34.0); MONO % 3.3 % (0.0-8.0); PLATELET COUNT 75 TH/MM3 (150-450); RED BLOOD COUNT 3.15 MIL/MM3 (4.00-5.30); RED CELL DISTRIBUTION WIDTH 19.5 % (11.6-17.2); WHITE BLOOD COUNT 5.7 TH/MM3 (4.0-11.0)
[2017-01-05] MEDS: CHLORHEXIDINE GLUCONATE 2 % 1 PACK (2 CLOTHS) TOP SCH (04:00)
[2017-01-05 04:17] LABS: ALKALINE PHOSPHATASE 57 U/L (45-117); ALT (GPT) 201 U/L (10-53); ANION GAP 8 MEQ/L (5-15); AST (GOT) 165 U/L (15-37); BICARBONATE 28.2 MEQ/L (21.0-32.0); BLOOD UREA NITROGEN 17 MG/DL (7-18); CHLORIDE 108 MEQ/L (98-107); GLOMERULAR FILTRATION RATE 37 ML/MIN (>89); MAGNESIUM 1.8 MG/DL (1.5-2.5); POTASSIUM 3.6 MEQ/L (3.5-5.1); SODIUM (NA) 144 MEQ/L (136-145)
[2017-01-05 04:56] LABS: SCAN/DIFF AUTO DIFF CONFIRMED
[2017-01-05 04:57] LABS: PLATELET ESTIMATE SMEAR LOW (NORMAL); PLATELET MORPHOLOGY NORMAL (NORMAL)
[2017-01-05 04:58] LABS: ACANTHOCYTES OCC (NORMAL); KERATOCYTES OCC (NORMAL); OVALOCYTES 1+ (NORMAL)
[2017-01-05] MEDS: LEVOTHYROXINE SODIUM 75 MCG TAB PO SCH (05:49)
[2017-01-05] MEDS: INSULIN ASPART SUPPLEMENTAL SCALE SQ SCH ×4 (06:46→20:46)
[2017-01-05] MEDS: DOCUSATE SODIUM 100 MG CAP PO SCH ×2 (09:00→20:23)
[2017-01-05] MEDS: ALLOPURINOL 100 MG TAB PO SCH (10:16)
[2017-01-05] MEDS: METOPROLOL TARTRATE 25 MG TAB PO SCH ×3 (10:16→21:00)
[2017-01-05] MEDS: PANTOPRAZOLE SODIUM 40 MG VIAL IV SCH (10:16)
[2017-01-05] MEDS: DILTIAZEM HCL 60 MG TAB PO SCH ×5 (10:16→21:00)
--- NOTE | 2017-01-05 14:54 | PD.ONC.PN ---
Subjective Subjective Remarks Tmax 101.7 yesterday afternoon. Patient says she slept really well last night-- approximately 10 hours and feels like a new woman today. HR improved and now on PO Cardizem only. Denies abdominal pain. Objective Data Date Time Temp Pulse Resp B/P Pulse Ox O2 Delivery O2 Flow Rate FiO2 01/05/17 14:00 63 01/05/17 12:00 66 01/05/17 12:00 97.4 63 14 114/55 94 01/05/17 11:59 95 21 01/05/17 10:00 77 01/05/17 08:00 65 01/05/17 08:00 97.5 65 26 112/58 96 01/05/17 06:00 65 01/05/17 04:00 97.3 63 17 108/58 97 01/05/17 04:00 63 01/05/17 02:00 66 01/05/17 00:00 64 01/05/17 00:00 97.1 64 18 117/58 99 01/04/17 22:00 65 01/04/17 20:00 97.9 72 16 99/56 96 01/04/17 20:00 72 01/04/17 19:10 97 Nasal Cannula 3.00 01/04/17 18:00 79 01/04/17 16:00 101.7 85 25 110/55 96 01/04/17 16:00 85 01/05/17 01/05/17 01/05/17 07:00 15:00 23:00 Intake Total 119 ml 906 ml Balance 119 ml 906 ml Result Diagram: 01/05/175 01/05/175 Laboratory Results Laboratory Tests Test 01/05/17 02:15 White Blood Count 5.7 TH/MM3 Red Blood Count 3.15 MIL/MM3 Hemoglobin 8.4 GM/DL Hematocrit 25.4 % Mean Corpuscular Volume 80.5 FL Mean Corpuscular Hemoglobin 26.5 PG Mean Corpuscular Hemoglobin 33.0 % Concent Red Cell Distribution Width 19.5 % Platelet Count 75 TH/MM3 Mean Platelet Volume 9.8 FL Neutrophils (%) (Auto) 82.0 % Lymphocytes (%) (Auto) 13.3 % Monocytes (%) (Auto) 3.3 % Eosinophils (%) (Auto) 0.8 % Basophils (%) (Auto) 0.6 % Neutrophils # (Auto) 4.7 TH/MM3 Lymphocytes # (Auto) 0.8 TH/MM3 Monocytes # (Auto) 0.2 TH/MM3 Eosinophils # (Auto) 0.0 TH/MM3 Basophils # (Auto) 0.0 TH/MM3 CBC Comment AUTO DIFF Differential Comment AUTO DIFF CONFIRMED Platelet Estimate LOW Platelet Morphology Comment NORMAL Ovalocytes 1+ Acanthocytes OCC Keratocytes OCC Sodium Level 144 MEQ/L Potassium Level 3.6 MEQ/L Chloride Level 108 MEQ/L Carbon Dioxide Level 28.2 MEQ/L Anion Gap 8 MEQ/L Blood Urea Nitrogen 17 MG/DL Creatinine 1.35 MG/DL Estimat Glomerular Filtration 37 ML/MIN Rate Random Glucose 144 MG/DL Calcium Level 7.6 MG/DL Phosphorus Level 2.8 MG/DL Magnesium Level 1.8 MG/DL Total Bilirubin 2.0 MG/DL Aspartate Amino Transf 165 U/L (AST/SGOT) Alanine Aminotransferase 201 U/L (ALT/SGPT) Alkaline Phosphatase 57 U/L Total Protein 4.2 GM/DL Albumin 2.0 GM/DL Culture Results Microbiology Date/Time Procedure Status Source Growth 01/04/17 22:45 Aerobic Blood Culture - Preliminary Resulted Blood Line NO GROWTH IN 1 DAY 01/04/17 22:45 Anaerobic Blood Culture - Preliminary Resulted Blood Line NO GROWTH IN 1 DAY 01/05/17 00:14 Aerobic Blood Culture Received Blood Line Pending 01/05/17 00:14 Anaerobic Blood Culture Received Blood Line Pending Administered Medications Medications (Trade) Dose Ordered Sig/Loretta Route PRN Reason Start Time Stop Time Status Last Admin Dose Admin Heparin Sodium (Porcine) (Heparin Central Flush) 500 units DAILY IV FLUSH 12/31/16 09:00 01/05/17 14:06 Allopurinol (Zyloprim) 100 mg DAILY PO 12/31/16 09:00 01/05/17 10:16 Levothyroxine Sodium (Synthroid) 75 mcg DAILY@06 PO 12/31/16 06:00 01/05/17 05:49 Acetaminophen (Tylenol) 650 mg Q6H PRN PO PAIN 1-3 OR TEMP >101 12/31/16 03:30 01/04/17 17:47 Pantoprazole Sodium (Protonix Inj) 40 mg DAILY IV 12/31/16 09:00 01/05/17 10:16 Docusate Sodium (Colace) 100 mg BID PO 12/31/16 09:00 01/01/17 20:57 Chlorhexidine Gluconate Taper DAILY@04 TOP 12/31/16 04:00 12/27/17 03:59 01/05/17 04:00 Diltiazem HCl 125 mg/Sodium Chloride 125 ml @ 0 mls/hr TITRATE IV 01/02/17 01:15 01/04/17 07:24 Potassium Chloride 100 ml @ 50 mls/hr Q2H PRN IV For Potassium 2.8 - 3.2 mEq/L 01/02/17 07:15 01/03/17 08:37 Potassium Chloride 100 ml @ 25 mls/hr UNSCH PRN IV For Potassium 3.3 - 3.5 mEq/L 01/02/17 07:15 01/02/17 08:39 Sodium Phosphate/ Sodium Chloride (Sodium Phosphate Inj/NS 250 ml Inj) 250 ml @ 42 mls/hr UNSCH PRN IV For Phosphorus < 2.5 mg/dL 01/02/17 07:15 01/02/17 16:43 Diltiazem HCl (Cardizem) 60 mg QID PO 01/02/17 09:00 01/05/17 10:16 Metoprolol Tartrate 50 mg 50 mg Q12HR PO 01/04/17 09:00 01/05/17 10:16 Piperacillin Sod/ Tazobactam Sod (Zosyn 2.25 Gm Premix) 50 ml @ 100 mls/hr Q6H IV 01/04/17 12:00 01/05/17 11:58 Objective Remarks GENERAL: Elderly female, sitting up in chair next to bed. appears well SKIN: Warm and dry. No bleeding. HEAD: Normocephalic. EYES: No injection or drainage. NECK: Supple, trachea midline. CARDIOVASCULAR: +S1/S2, rate controlled. RESPIRATORY: anterior hay clear. GASTROINTESTINAL: Abdomen soft, non-tender, nondistended. EXTREMITIES: No cyanosis. ble with scd's in place. NEUROLOGICAL: aox3. normal speech. Assessment/Plan Problem List: (1) Chronic lymphocytic leukemia Status: Acute Plan: -- Last treated with obinutuzumab on 12/28. Hx/Workup: Originally diagnosed with CLL in 1989. She was on Leukeran, however this has been discontinued. In November her white count was greater than 200K. She was confirmed to have CLL infiltrating the bone marrow. She received a small dose of 100mg obinutuzumab but unfortunately developed tumor lysis syndrome following this. (2) Sepsis Status: Acute Plan: -- On Zosyn -- Monitor for fevers -- Blood cultures no growth --CXR, 01/01 shows mild opacity at left lung base (3) Tumor lysis syndrome following antineoplastic drug therapy Status: Acute Plan: --100 mg Allopurinol daily (4) Elevated liver enzymes Status: Acute Plan: -- monitor bilirubin -- US of the liver shows a gallstone in the gallbladder neck associated with mural thickening and pericholecystic fluid. --per IR not enough space to place cholecystostomy tube. monitor for now. Assessment 86 y/o female with history of CLL admitted for fevers and pancytopenia. Plan 1. continue abx per ID 2. monitor LFT's, bilirubin 3. monitor CBC--counts improving. Attending Statement Discussed as above with MATEO Peres Problem Qualifiers (1) Sepsis: Qualified Code: A41.9 - Sepsis, due to unspecified organism Amy Durant Jan 05, 2017 14:54 Ofelia King MD Jan 05, 2017 18:09
--- NOTE | 2017-01-05 16:34 | HHI.PR ---
Subjective Remarks feels great tolerating po well some loose stools,brown Objective Vitals Vital Signs Date Time Temp Pulse Resp B/P Pulse Ox O2 Delivery O2 Flow Rate FiO2 01/05/17 14:00 63 01/05/17 12:00 66 01/05/17 12:00 97.4 63 14 114/55 94 01/05/17 11:59 95 21 01/05/17 10:00 77 01/05/17 08:00 65 01/05/17 08:00 97.5 65 26 112/58 96 01/05/17 06:00 65 01/05/17 04:00 97.3 63 17 108/58 97 01/05/17 04:00 63 01/05/17 02:00 66 01/05/17 00:00 64 01/05/17 00:00 97.1 64 18 117/58 99 01/04/17 22:00 65 01/04/17 20:00 97.9 72 16 99/56 96 01/04/17 20:00 72 01/04/17 19:10 97 Nasal Cannula 3.00 01/04/17 18:00 79 I/O 01/04/17 01/04/17 01/04/17 01/05/17 01/05/17 01/05/17 07:00 15:00 23:00 07:00 15:00 23:00 Intake Total 72 ml 1130 ml 175 ml 119 ml 906 ml Output Total 125 ml Balance -53 ml 1130 ml 175 ml 119 ml 906 ml Intake Oral 0 ml 840 ml 60 ml 0 ml 720 ml IV Total 72 ml 290 ml 115 ml 119 ml 186 ml Output Urine Total 125 ml # Voids 5 1 1 3 # Bowel Movements 1 2 0 0 3 Result Diagram: 01/05/175 01/05/175 Imaging Last Impressions Liver Ultrasound 01/04/17 0000 Signed Impressions: Service Date/Time: Wednesday, January 04, 2017 09:27 - CONCLUSION: 1. Heterogeneous echotexture the liver the liver is mildly enlarged. 2. Bilateral pleural effusions. 3. Stable 1.9 x 1.8 cm simple cyst within the liver. 4. Stable simple cyst within the right kidney. 5. 2.6 x 1.9 cm gallstone within the dependent portion of the gallbladder. Ken Banks MD Chest X-Ray 01/04/17 0000 Signed Impressions: Service Date/Time: Wednesday, January 04, 2017 12:19 - CONCLUSION: Worsening aeration Carlton Weiss MD Objective Remarks anicteric no oral thrush anicteric lungs no rales or wjheezes abdomen- soft, good bowel sounds, no guarding no leg swelling, no calf tenderness A/P Assessment and Plan 86 years old female CLL with tumor lysis syndrome Elevated LFTs from tumor lysis Pancytopenia US with GB stone- no dilated ducts ff LFTS Medical Oncology - Dr. King ff Acute resoiratrioy Insufficiency- respiratory improving Pneumonia encourage incentive spirometry hourly Bronchodilators on IV antibitiotics CXR 01/01 mild opacity in left lung base atelectasis vs consolidation Atrial fibrillation- currently in SR- intermittent Prior history of hypertension on PO Cardizem 60mg QID, increase Lopressor 50mg BID- monitor HR and BP keep MAP>65mmHg echo EF 60% statin on hold for elevated LFT's. Elevated LFTS- due to tumor lysis- ff trend- up today Large gallstone in the gallbladder neck. The gallbladder is decompressed with some mural thickening and pericholecystic fluid. Ascites and bilateral small pleural effusions. Splenomegaly. Liver also appears somewhat prominent with coarsened echotexture. Benign-appearing right renal and splenic parenchymal cysts. Discussed with IR 01/[address] perc cholecystostomy tube. Patient denies any abd pain will monitor clinically. ff LFTs in am. ? GS for lap cholecystectomy- platelet too low MATILDA overlying CKD stage III Tumor lysis syndrome Continue allopurinol 100 mg po daily. Monitor renal function, I/O's, avoid nephrotoxins. Will need K replacement today s/p Fever Left chest port in situ Influenza screen negative Continue [employer] coverage for sepsis with Zosyn, off Vanco. ID is following- Dr. Thibodeaux. Monitor for signs of infections ( Fever, WBC) BC 12/30: NGTD CLL Thrombocytopenia- Pancytopenia Monitor CBC. s/p transfusion 2U PRBC 12/31 Oncology- Dr. King. Further transfusion per Heme Chemotherapy with obinutuzumab, last dose 12/28/16 Type 2 diabetes mellitus Hypothyroidism Low-dose insulin sliding scale ACh S TSH is normal 12/22/16. Continue Synthroid 75 g by mouth daily PROPH: SCDs for DVT prophylaxis. Not on pharmacologic DVT prophylaxis due to thrombocytopenia ACCESS: L chest port accessed. Hugh Escoto MD Jan 05, 2017 16:34 thrombocytopenia ACCESS: L chest port accessed. Hugh Escoto MD Jan 05, 2017 16:34
[2017-01-06] VITALS (13 sets, daily range): BP systolic 100–135; BP diastolic 59–80; PULSE 52–109; RESP 14–20; TEMP 97.7–98.8; O2SAT 91–97
[2017-01-06] MEDS ORDERED: METOPROLOL TARTRATE 25 MG TAB PO ONE (01:00)
[2017-01-06] MEDS: CHLORHEXIDINE GLUCONATE 2 % 1 PACK (2 CLOTHS) TOP SCH (04:00)
[2017-01-06] MEDS: PIPERACIL-TAZO 2.25 GM PREMIX 50 ML IV SCH ×2 (05:25→12:01)
[2017-01-06] MEDS: LEVOTHYROXINE SODIUM 75 MCG TAB PO SCH (05:25)
[2017-01-06] MEDS: INSULIN ASPART SUPPLEMENTAL SCALE SQ SCH ×4 (07:00→19:41)
[2017-01-06] MEDS: DOCUSATE SODIUM 100 MG CAP PO SCH ×2 (09:00→19:41)
[2017-01-06] MEDS: METOPROLOL TARTRATE 25 MG TAB PO SCH ×2 (09:24→19:40)
[2017-01-06] MEDS: DILTIAZEM HCL 60 MG TAB PO SCH ×3 (09:24→17:41)
[2017-01-06] MEDS: PANTOPRAZOLE SODIUM 40 MG VIAL IV SCH (09:25)
[2017-01-06] MEDS: ALLOPURINOL 100 MG TAB PO SCH (09:25)
[2017-01-06 13:50] LABS: AUTOMATED NEUTROPHIL # 1.8 TH/MM3 (1.8-7.7); EOSINOPHIL # 0.1 TH/MM3 (0-0.4); EOSINOPHIL % 2.6 % (0.0-4.0); HEMATOCRIT 24.7 % (35.0-46.0); HEMO FLAGS DIFF FINAL; LYMPH % 22.6 % (9.0-44.0); LYMPHOCYTE # 0.6 TH/MM3 (1.0-4.8); MEAN CORPUSCULAR HEMOGLOBIN 26.7 PG (27.0-34.0); MONO % 5.7 % (0.0-8.0); NEUT % 68.1 % (16.0-70.0); PLATELET COUNT 118 TH/MM3 (150-450); RED BLOOD COUNT 3.06 MIL/MM3 (4.00-5.30); RED CELL DISTRIBUTION WIDTH 19.2 % (11.6-17.2); WHITE BLOOD COUNT 2.7 TH/MM3 (4.0-11.0)
[2017-01-06 14:05] LABS: ANION GAP 7 MEQ/L (5-15); AST (GOT) 70 U/L (15-37); BICARBONATE 29.1 MEQ/L (21.0-32.0); BLOOD UREA NITROGEN 16 MG/DL (7-18); CHLORIDE 106 MEQ/L (98-107); GLOMERULAR FILTRATION RATE 38 ML/MIN (>89); POTASSIUM 3.3 MEQ/L (3.5-5.1); SODIUM (NA) 142 MEQ/L (136-145)
[2017-01-06 14:08] LABS: ALKALINE PHOSPHATASE 55 U/L (45-117); ALT (GPT) 130 U/L (10-53)
[2017-01-06] MEDS: POTASSIUM CHLOR 40 MEQ PREMIX 100 ML IV PRN (14:20)
--- NOTE | 2017-01-06 14:40 | HHI.PR ---
Subjective Remarks feels great po intake improved Objective Vitals Vital Signs Date Time Temp Pulse Resp B/P Pulse Ox O2 Delivery O2 Flow Rate FiO2 01/06/17 14:00 57 01/06/17 12:00 98.6 64 18 126/61 91 01/06/17 12:00 64 01/06/17 10:00 59 01/06/17 08:00 55 01/06/17 08:00 97.7 55 16 135/60 97 01/06/17 06:00 64 01/06/17 04:00 98.3 62 20 100/63 95 01/06/17 04:00 62 01/06/17 02:00 61 01/06/17 00:00 109 01/06/17 00:00 98.8 109 18 114/61 92 01/05/17 22:00 115 01/05/17 20:00 70 01/05/17 20:00 98.5 70 20 123/56 90 01/05/17 18:00 69 01/05/17 16:00 66 01/05/17 16:00 98.9 66 19 102/56 93 I/O 01/05/17 01/05/17 01/05/17 01/06/17 01/06/17 01/06/17 07:00 15:00 23:00 07:00 15:00 23:00 Intake Total 119 ml 906 ml 248 ml 241 ml 186 ml Balance 119 ml 906 ml 248 ml 241 ml 186 ml Intake Oral 0 ml 720 ml 120 ml 60 ml IV Total 119 ml 186 ml 128 ml 181 ml 186 ml # Voids 1 3 1 1 3 # Bowel Movements 0 3 0 0 5 Result Diagram: 01/06/17 1315 01/06/17 1315 Imaging Last Impressions Liver Ultrasound 01/04/17 0000 Signed Impressions: Service Date/Time: Wednesday, January 04, 2017 09:27 - CONCLUSION: 1. Heterogeneous echotexture the liver the liver is mildly enlarged. 2. Bilateral pleural effusions. 3. Stable 1.9 x 1.8 cm simple cyst within the liver. 4. Stable simple cyst within the right kidney. 5. 2.6 x 1.9 cm gallstone within the dependent portion of the gallbladder. Ken Banks MD Chest X-Ray 01/04/17 0000 Signed Impressions: Service Date/Time: Wednesday, January 04, 2017 12:19 - CONCLUSION: Worsening aeration Carlton Weiss MD Objective Remarks awake and alert oriented x 3 anicteric lungs no rales or wjheezes abdomen- soft, good bowel sounds, no guarding no leg swelling, no calf tenderness neuro exam- non focal A/P Assessment and Plan 86 years old female CLL with tumor lysis syndrome Elevated LFTs from tumor lysis Pancytopenia US with GB stone- no dilated ducts ff LFTS- trending down Medical Oncology - Dr. King ff Acute respiratory Insufficiency- improved- good sats at room air Pneumonia encourage incentive spirometry hourly. monitor Bronchodilators on IV antibitiotics CXR 01/01 mild opacity in left lung base atelectasis vs consolidation Atrial fibrillation- currently in SR- - HR in the 50s - 60s Prior history of hypertension Lopressor 50mg BID-. decrease cardizem to 60 mg po tid echo EF 60% statin on hold for elevated LFT's. Elevated LFTS- due to tumor lysis- ff trend- Large gallstone in the gallbladder neck. The gallbladder is decompressed with some mural thickening and pericholecystic fluid. Ascites and bilateral small pleural effusions. Splenomegaly. Liver also appears somewhat prominent with coarsened echotexture. Benign-appearing right renal and splenic parenchymal cysts. Discussed with IR 01/[address] perc cholecystostomy tube. Patient denies any abd pain will monitor clinically. ff LFTs in am. ? GS for lap cholecystectomy- platelet too low MATILDA overlying CKD stage III Tumor lysis syndrome Continue allopurinol 100 mg po daily. Monitor renal function, I/O's, avoid nephrotoxins. Will need K replacement today s/p Fever Left chest port in situ Influenza screen negative Continue Empiric coverage for sepsis with Zosyn, off Vanco. ID is following- Dr. Thibodeaux. Monitor for signs of infections ( Fever, WBC) BC 12/30: NGTD CLL Thrombocytopenia- Pancytopenia Monitor CBC. s/p transfusion 2U PRBC 12/31 Oncology- Dr. King. Further transfusion per Heme Chemotherapy with obinutuzumab, last dose 12/28/16 Type 2 diabetes mellitus Hypothyroidism Low-dose insulin sliding scale ACh S TSH is normal 12/22/16. Continue Synthroid 75 g by mouth daily Hypokalemia- replaced here per ICU protocol start po KCL supplement recheck in am PROPH: SCDs for DVT prophylaxis. Not on pharmacologic DVT prophylaxis due to thrombocytopenia ACCESS: L chest port accessed. Transfer to Oncology floor Increase activity Hugh Escoto MD Jan 06, 2017 14:40
--- NOTE | 2017-01-06 15:12 | PD.ONC.PN ---
Subjective Subjective Remarks Afebrile overnight. Patient feeling well today but she did not sleep well last night. HR controlled. Worked with PT yesterday but not yet today. Objective Data Date Time Temp Pulse Resp B/P Pulse Ox O2 Delivery O2 Flow Rate FiO2 01/06/17 14:00 57 01/06/17 12:00 98.6 64 18 126/61 91 01/06/17 12:00 64 01/06/17 10:00 59 01/06/17 08:00 55 01/06/17 08:00 97.7 55 16 135/60 97 01/06/17 06:00 64 01/06/17 04:00 98.3 62 20 100/63 95 01/06/17 04:00 62 01/06/17 02:00 61 01/06/17 00:00 109 01/06/17 00:00 98.8 109 18 114/61 92 01/05/17 22:00 115 01/05/17 20:00 70 01/05/17 20:00 98.5 70 20 123/56 90 01/05/17 18:00 69 01/05/17 16:00 66 01/05/17 16:00 98.9 66 19 102/56 93 01/06/17 01/06/17 01/06/17 07:00 15:00 23:00 Intake Total 241 ml 186 ml Balance 241 ml 186 ml Result Diagram: 01/06/17 1315 01/06/17 1315 Laboratory Results Laboratory Tests Test 01/06/17 13:15 White Blood Count 2.7 TH/MM3 Red Blood Count 3.06 MIL/MM3 Hemoglobin 8.2 GM/DL Hematocrit 24.7 % Mean Corpuscular Volume 81.0 FL Mean Corpuscular Hemoglobin 26.7 PG Mean Corpuscular Hemoglobin 33.0 % Concent Red Cell Distribution Width 19.2 % Platelet Count 118 TH/MM3 Mean Platelet Volume 8.6 FL Neutrophils (%) (Auto) 68.1 % Lymphocytes (%) (Auto) 22.6 % Monocytes (%) (Auto) 5.7 % Eosinophils (%) (Auto) 2.6 % Basophils (%) (Auto) 1.0 % Neutrophils # (Auto) 1.8 TH/MM3 Lymphocytes # (Auto) 0.6 TH/MM3 Monocytes # (Auto) 0.2 TH/MM3 Eosinophils # (Auto) 0.1 TH/MM3 Basophils # (Auto) 0.0 TH/MM3 CBC Comment DIFF FINAL Differential Comment Sodium Level 142 MEQ/L Potassium Level 3.3 MEQ/L Chloride Level 106 MEQ/L Carbon Dioxide Level 29.1 MEQ/L Anion Gap 7 MEQ/L Blood Urea Nitrogen 16 MG/DL Creatinine 1.34 MG/DL Estimat Glomerular Filtration 38 ML/MIN Rate Random Glucose 140 MG/DL Calcium Level 7.8 MG/DL Total Bilirubin 1.0 MG/DL Aspartate Amino Transf 70 U/L (AST/SGOT) Alanine Aminotransferase 130 U/L (ALT/SGPT) Alkaline Phosphatase 55 U/L Total Protein 4.3 GM/DL Albumin 2.0 GM/DL Culture Results Microbiology Date/Time Procedure Status Source Growth 01/04/17 22:45 Aerobic Blood Culture - Preliminary Resulted Blood Line NO GROWTH IN 2 DAYS 01/04/17 22:45 Anaerobic Blood Culture - Preliminary Resulted Blood Line NO GROWTH IN 2 DAYS 01/05/17 00:14 Aerobic Blood Culture - Preliminary Resulted Blood Line NO GROWTH IN 1 DAY 01/05/17 00:14 Anaerobic Blood Culture - Preliminary Resulted Blood Line NO GROWTH IN 1 DAY Administered Medications Medications (Trade) Dose Ordered Sig/Loretta Route PRN Reason Start Time Stop Time Status Last Admin Dose Admin Heparin Sodium (Porcine) (Heparin Central Flush) 500 units DAILY IV FLUSH 12/31/16 09:00 01/05/17 14:06 Allopurinol (Zyloprim) 100 mg DAILY PO 12/31/16 09:00 01/06/17 09:25 Levothyroxine Sodium (Synthroid) 75 mcg DAILY@06 PO 12/31/16 06:00 01/06/17 05:25 Acetaminophen (Tylenol) 650 mg Q6H PRN PO PAIN 1-3 OR TEMP >101 12/31/16 03:30 01/04/17 17:47 Docusate Sodium (Colace) 100 mg BID PO 12/31/16 09:00 01/01/17 20:57 Chlorhexidine Gluconate Taper DAILY@04 TOP 12/31/16 04:00 12/27/17 03:59 01/06/17 04:00 Diltiazem HCl 125 mg/Sodium Chloride 125 ml @ 0 mls/hr TITRATE IV 01/02/17 01:15 01/04/17 07:24 Potassium Chloride 100 ml @ 50 mls/hr Q2H PRN IV For Potassium 2.8 - 3.2 mEq/L 01/02/17 07:15 01/03/17 08:37 Potassium Chloride 100 ml @ 25 mls/hr UNSCH PRN IV For Potassium 3.3 - 3.5 mEq/L 01/02/17 07:15 01/06/17 14:20 Sodium Phosphate/ Sodium Chloride (Sodium Phosphate Inj/NS 250 ml Inj) 250 ml @ 42 mls/hr UNSCH PRN IV For Phosphorus < 2.5 mg/dL 01/02/17 07:15 01/02/17 16:43 Metoprolol Tartrate 50 mg 50 mg Q12HR PO 01/04/17 09:00 01/06/17 09:24 Piperacillin Sod/ Tazobactam Sod (Zosyn 2.25 Gm Premix) 50 ml @ 100 mls/hr Q6H IV 01/04/17 12:00 01/06/17 12:01 Objective Remarks GENERAL: Elderly female, lying supine in bed in nad SKIN: Warm and dry. No bleeding. HEAD: Normocephalic. EYES: No injection or drainage. NECK: Supple, trachea midline. CARDIOVASCULAR: +S1/S2, rate controlled. RESPIRATORY: anterior hay clear. GASTROINTESTINAL: Abdomen soft, non-tender, nondistended. EXTREMITIES: No cyanosis. no edema NEUROLOGICAL: awake and alert, normal speech. Assessment/Plan Problem List: (1) Chronic lymphocytic leukemia Status: Acute Plan: -- Last treated with obinutuzumab on 12/28. Hx/Workup: Originally diagnosed with CLL in 1989. She was on Leukeran, however this has been discontinued. In November her white count was greater than 200K. She was confirmed to have CLL infiltrating the bone marrow. She received a small dose of 100mg obinutuzumab but unfortunately developed tumor lysis syndrome following this. (2) Sepsis Status: Acute Plan: -- On Zosyn -- Monitor for fevers -- Blood cultures no growth --CXR, 01/01 shows mild opacity at left lung base (3) Tumor lysis syndrome following antineoplastic drug therapy Status: Acute Plan: --100 mg Allopurinol daily (4) Elevated liver enzymes Status: Acute Plan: -- bilirubin improving -- US of the liver shows a gallstone in the gallbladder neck associated with mural thickening and pericholecystic fluid. --per IR not enough space to place cholecystostomy tube. monitor for now. Assessment 86 y/o female with history of CLL admitted for fevers and pancytopenia. Plan 1. continue abx per ID 2. agree with transfer to [facility] 3. monitor CBC Attending Statement The exam, history, and the medical decision-making described in the above note were completed with the assistance of the mid-level provider. I reviewed and agree with the findings presented. I attest that I had a [id number] encounter with the patient on the same day, and personally performed and documented my assessment and findings in the medical record. Pt seen and examined. Doing well clinically, afebrile, HR controlled, BP controlled. Able to sit up and walk with in her room. Noted recovery of platelet count, still anemic, expect additional RBC transfusion maybe needed, WBC cont to trend down. Agree with transfer to oncology floor. Discuss continue recovery and follow up as out pt to consider continuing tx for CLL. Current week pt in hospital pt's treatment was held. Problem Qualifiers (1) Sepsis: Qualified Code: A41.9 - Sepsis, due to unspecified organism Amy Durant Jan 06, 2017 15:12 Ofelia King MD Jan 06, 2017 23:48
--- NOTE | 2017-01-06 15:47 | HHI.IDPN ---
Subjective Subjective Remarks [facility] a pleasant 86-year-old woman initially diagnosed CLL in 1989. She received Leukeran as treatment in [id number]. Leukeran was discontinued to the cytopenias. However after stopping Leukeran, her white count has doubled over a short period of time to a white count of greater than 200,000 in November. She was confirmed to have CLL infiltrating the bone marrow. Ultimately, it was decided she needs treatment. Her first dose of obinutuzumab was administered. On a small dose of 100 mg, her course was complicated by acute tumor lysis syndrome the following day with renal function worsening. Uric acid increased, calcium decreased, potassium decreased, however it resulted in a significant response of her white count decreasing to 32,000. She was supported with IV fluid hydration during the last admission. She met with Dr. Yao who placed an [id number] during the hospitalization prior to being discharged home. On December 28, she resumed her treatment for the CLL. She had recovered. Her course was complicated by some tachycardia from her atrial fibrillation during the infusion. Dr. Guadarrama's office, her outsole rounder was consulted. She was given an extra dose of metoprolol. We were able to administer chemotherapy uneventfully well. She had a follow up with Dr. Guadarrama the day prior to her admission. On day of admission patient had fevers, blood cultures drawn, patient tachycardic and concern for sepsis so patient admitted to and then transferred to [facility]. Overnight events reviewed. doing good feeling tired. Afebrile No abdominal pain. Had 2-3 episodes of loose BM but was on stool softener which is on hold. off pressors BC remain negative Non neutropenic Antibiotics zosyn IV Lines Port site with no e.o infection Past Medical History reviewed Allergies: Coded Allergies: No Known Allergies (Unverified , 12/30/16) Objective . Vital Signs Date Time Temp Pulse Resp B/P Pulse Ox O2 Delivery O2 Flow Rate FiO2 01/06/17 14:00 57 01/06/17 12:00 98.6 64 18 126/61 91 01/06/17 12:00 64 01/06/17 10:00 59 01/06/17 08:00 55 01/06/17 08:00 97.7 55 16 135/60 97 01/06/17 06:00 64 01/06/17 04:00 98.3 62 20 100/63 95 01/06/17 04:00 62 01/06/17 02:00 61 01/06/17 00:00 109 01/06/17 00:00 98.8 109 18 114/61 92 01/05/17 22:00 115 01/05/17 20:00 70 01/05/17 20:00 98.5 70 20 123/56 90 01/05/17 18:00 69 01/05/17 16:00 66 01/05/17 16:00 98.9 66 19 102/56 93 01/05/17 01/05/17 01/06/17 14:59 22:59 06:59 Intake Total 906 ml 248 ml 241 ml Balance 906 ml 248 ml 241 ml Intake Oral 720 ml 120 ml 60 ml IV Total 186 ml 128 ml 181 ml # Voids 3 1 1 # Bowel Movements 3 0 0 . Laboratory Tests Test 01/05/17 01/06/17 02:15 13:15 White Blood Count 5.7 TH/MM3 2.7 TH/MM3 Red Blood Count 3.15 MIL/MM3 3.06 MIL/MM3 Hemoglobin 8.4 GM/DL 8.2 GM/DL Hematocrit 25.4 % 24.7 % Mean Corpuscular Volume 80.5 FL 81.0 FL Mean Corpuscular Hemoglobin 26.5 PG 26.7 PG Mean Corpuscular Hemoglobin 33.0 % 33.0 % Concent Red Cell Distribution Width 19.5 % 19.2 % Platelet Count 75 TH/MM3 118 TH/MM3 Mean Platelet Volume 9.8 FL 8.6 FL Neutrophils (%) (Auto) 82.0 % 68.1 % Lymphocytes (%) (Auto) 13.3 % 22.6 % Monocytes (%) (Auto) 3.3 % 5.7 % Eosinophils (%) (Auto) 0.8 % 2.6 % Basophils (%) (Auto) 0.6 % 1.0 % Neutrophils # (Auto) 4.7 TH/MM3 1.8 TH/MM3 Lymphocytes # (Auto) 0.8 TH/MM3 0.6 TH/MM3 Monocytes # (Auto) 0.2 TH/MM3 0.2 TH/MM3 Eosinophils # (Auto) 0.0 TH/MM3 0.1 TH/MM3 Basophils # (Auto) 0.0 TH/MM3 0.0 TH/MM3 CBC Comment AUTO DIFF DIFF FINAL Differential Comment AUTO DIFF CONFIRMED Platelet Estimate LOW Platelet Morphology Comment NORMAL Ovalocytes 1+ Acanthocytes OCC Keratocytes OCC Laboratory Tests Test 01/05/17 01/06/17 02:15 13:15 Sodium Level 144 MEQ/L 142 MEQ/L Potassium Level 3.6 MEQ/L 3.3 MEQ/L Chloride Level 108 MEQ/L 106 MEQ/L Carbon Dioxide Level 28.2 MEQ/L 29.1 MEQ/L Anion Gap 8 MEQ/L 7 MEQ/L Blood Urea Nitrogen 17 MG/DL 16 MG/DL Creatinine 1.35 MG/DL 1.34 MG/DL Estimat Glomerular Filtration 37 ML/MIN 38 ML/MIN Rate Random Glucose 144 MG/DL 140 MG/DL Calcium Level 7.6 MG/DL 7.8 MG/DL Phosphorus Level 2.8 MG/DL Magnesium Level 1.8 MG/DL Total Bilirubin 2.0 MG/DL 1.0 MG/DL Aspartate Amino Transf 165 U/L 70 U/L (AST/SGOT) Alanine Aminotransferase 201 U/L 130 U/L (ALT/SGPT) Alkaline Phosphatase 57 U/L 55 U/L Total Protein 4.2 GM/DL 4.3 GM/DL Albumin 2.0 GM/DL 2.0 GM/DL Microbiology Date/Time Procedure Status Source Growth 01/04/17 22:45 Aerobic Blood Culture - Preliminary Resulted Blood Line NO GROWTH IN 2 DAYS 01/04/17 22:45 Anaerobic Blood Culture - Preliminary Resulted Blood Line NO GROWTH IN 2 DAYS 01/05/17 00:14 Aerobic Blood Culture - Preliminary Resulted Blood Line NO GROWTH IN 1 DAY 01/05/17 00:14 Anaerobic Blood Culture - Preliminary Resulted Blood Line NO GROWTH IN 1 DAY Imaging Last Impressions Liver Ultrasound 01/01/17 0000 Signed Impressions: Service Date/Time: Sunday, January 01, 2017 08:32 - CONCLUSION: 1. Large gallstone in the gallbladder neck. The gallbladder is decompressed with some mural thickening and pericholecystic fluid. 2. Ascites and bilateral small pleural effusions. 3. Splenomegaly. Liver also appears somewhat prominent with coarsened echotexture. 4. Benign-appearing right renal and splenic parenchymal cysts. Jeremy Mullen MD Chest X-Ray 01/01/17 0000 Signed Impressions: Service Date/Time: Sunday, January 01, 2017 03:59 - CONCLUSION: Mild opacity at the left lung base representing either atelectasis or consolidation. Carlton Chavis MD Physical Exam GENERAL: No acute distress. She is awake and alert. HEENT: Head is atraumatic. Extraocular movements grossly intact, pupils reactive to light. No icterus. Oropharynx no visible lesions. NECK: Supple. No adenopathy. LUNGS: Decreased clear breath sounds HEART: Irregular rate and rhythm. No murmurs, rubs or gallops. ABDOMEN: Bowel sounds present, soft, nontender. EXTREMITIES: No clubbing or cyanosis. 1+ edema at the ankles. SKIN: No diffuse rash. NEUROLOGIC: Patient is alert and oriented. No gross focal findings. PSYCHIATRIC: The patient calm and cooperative. Assessment & Plan Remarks IMPRESSION 1. Fever possible sepsis on admission. Immune compromised host. 2. CLL 3. Pancytopenia following chemotherapy now improved. 4. Gallbladder disease suspicious for acute calculous cholecystitis on ultrasound but clinically not symptomatic. 5. Abnormal LFTs: cholecystitis, sepsis 6. Acute renal failure: sepsis, prerenal, meds. RECOMMENDATIONS DC Zosyn IV Start oral augmentin. If tolerated and clinically stable will consider discharge if cleared by other MDs in am. Monitor LFTs. Monitor temperature Monitor blood cultures. Ketty Foreman MD Jan 06, 2017 15:47
[2017-01-06] MEDS: POTASSIUM CHLORIDE 10 MEQ CONTROLLED RELEASE TAB PO SCH (19:41)
[2017-01-07] VITALS (14 sets, daily range): BP systolic 121–147; BP diastolic 59–72; PULSE 46–99; RESP 16–32; TEMP 98–98.6; O2SAT 93–97
[2017-01-07] MEDS: CHLORHEXIDINE GLUCONATE 2 % 1 PACK (2 CLOTHS) TOP SCH (04:00)
[2017-01-07] MEDS: LEVOTHYROXINE SODIUM 75 MCG TAB PO SCH (05:43)
[2017-01-07] MEDS: INSULIN ASPART SUPPLEMENTAL SCALE SQ SCH ×4 (05:44→20:59)
[2017-01-07] MEDS: DOCUSATE SODIUM 100 MG CAP PO SCH ×2 (09:00→19:20)
[2017-01-07] MEDS: PANTOPRAZOLE SOD 40 MG DELAYED RELEASE TAB PO SCH (09:06)
[2017-01-07] MEDS: ALLOPURINOL 100 MG TAB PO SCH (09:06)
[2017-01-07] MEDS: DILTIAZEM HCL 60 MG TAB PO SCH ×2 (09:06→13:00)
[2017-01-07] MEDS: POTASSIUM CHLORIDE 10 MEQ CONTROLLED RELEASE TAB PO SCH ×2 (09:07→20:54)
[2017-01-07] MEDS: AMOXICILLIN/CLAVULANATE K 875 MG TAB PO SCH ×3 (09:07→20:54)
[2017-01-07] MEDS: METOPROLOL TARTRATE 25 MG TAB PO SCH ×2 (09:07→20:54)
--- NOTE | 2017-01-07 14:37 | PD.ONC.PN ---
Subjective Subjective Remarks Afebrile overnight. Patient resting comfortably. She is still waiting on a bed in [facility]. she is otherwise without complaint. Objective Data Date Time Temp Pulse Resp B/P Pulse Ox O2 Delivery O2 Flow Rate FiO2 01/07/17 06:00 53 01/07/17 04:00 98.6 57 32 134/61 96 01/07/17 04:00 51 01/07/17 02:00 53 01/07/17 00:00 56 01/07/17 00:00 98.3 59 23 147/65 95 01/06/17 22:00 52 01/06/17 20:20 96 Nasal Cannula 2.00 01/06/17 20:00 58 01/06/17 20:00 98.5 58 18 127/59 97 01/06/17 18:00 60 01/06/17 16:00 98.8 66 14 116/80 93 01/06/17 16:00 66 01/07/17 01/07/17 01/07/17 07:00 15:00 23:00 Intake Total 169 ml Output Total 950 ml Balance -781 ml Result Diagram: 01/06/17 1315 01/07/17 0550 Laboratory Results Laboratory Tests Test 01/07/17 01/07/17 00:10 05:50 Potassium Level 3.8 MEQ/L Creatinine 1.33 MG/DL Estimat Glomerular Filtration 38 ML/MIN Rate Culture Results Microbiology Date/Time Procedure Status Source Growth 01/04/17 22:45 Aerobic Blood Culture - Preliminary Resulted Blood Line NO GROWTH IN 3 DAYS 01/04/17 22:45 Anaerobic Blood Culture - Preliminary Resulted Blood Line NO GROWTH IN 3 DAYS 01/05/17 00:14 Aerobic Blood Culture - Preliminary Resulted Blood Line NO GROWTH IN 2 DAYS 01/05/17 00:14 Anaerobic Blood Culture - Preliminary Resulted Blood Line NO GROWTH IN 2 DAYS Administered Medications Medications (Trade) Dose Ordered Sig/Loretta Route PRN Reason Start Time Stop Time Status Last Admin Dose Admin Heparin Sodium (Porcine) (Heparin Central Flush) 500 units DAILY IV FLUSH 12/31/16 09:00 01/07/17 09:11 Allopurinol (Zyloprim) 100 mg DAILY PO 12/31/16 09:00 01/07/17 09:06 Levothyroxine Sodium (Synthroid) 75 mcg DAILY@06 PO 12/31/16 06:00 01/07/17 05:43 Acetaminophen (Tylenol) 650 mg Q6H PRN PO PAIN 1-3 OR TEMP >101 12/31/16 03:30 01/04/17 17:47 Docusate Sodium (Colace) 100 mg BID PO 12/31/16 09:00 01/06/17 19:41 Chlorhexidine Gluconate Taper DAILY@04 TOP 12/31/16 04:00 12/27/17 03:59 01/06/17 04:00 Diltiazem HCl 125 mg/Sodium Chloride 125 ml @ 0 mls/hr TITRATE IV 01/02/17 01:15 01/04/17 07:24 Potassium Chloride 100 ml @ 50 mls/hr Q2H PRN IV For Potassium 2.8 - 3.2 mEq/L 01/02/17 07:15 01/03/17 08:37 Potassium Chloride 100 ml @ 25 mls/hr UNSCH PRN IV For Potassium 3.3 - 3.5 mEq/L 01/02/17 07:15 01/06/17 14:20 Sodium Phosphate/ Sodium Chloride (Sodium Phosphate Inj/NS 250 ml Inj) 250 ml @ 42 mls/hr UNSCH PRN IV For Phosphorus < 2.5 mg/dL 01/02/17 07:15 01/02/17 16:43 Metoprolol Tartrate (Lopressor) 50 mg Q12HR PO 01/04/17 09:00 01/07/17 09:07 Potassium Chloride (KCl) 10 meq Q12HR PO 01/06/17 21:00 01/07/17 09:07 Pantoprazole Sodium (Protonix) 40 mg DAILY PO 01/07/17 09:00 01/07/17 09:06 Diltiazem HCl (Cardizem) 60 mg TID PO 01/06/17 18:00 01/07/17 13:00 Amoxicillin/ Clavulanate Potassium (Augmentin) 875 mg Q12HR PO 01/06/17 21:00 01/07/17 09:07 Objective Remarks GENERAL: Elderly female, sitting up in chair in nad SKIN: Warm and dry. HEAD: Normocephalic. EYES: No injection or drainage. NECK: Supple, trachea midline. CARDIOVASCULAR: Regular rate and rhythm RESPIRATORY: Breath sounds equal bilaterally. No accessory muscle use. GASTROINTESTINAL: Abdomen soft, non-tender, nondistended. EXTREMITIES: No cyanosis NEUROLOGICAL: No obvious focal deficit. Awake, alert, and oriented x3. Assessment/Plan Problem List: (1) Chronic lymphocytic leukemia Status: Acute Plan: -- Last treated with obinutuzumab on 12/28. Hx/Workup: Originally diagnosed with CLL in 1989. She was on Leukeran, however this has been discontinued. In November her white count was greater than 200K. She was confirmed to have CLL infiltrating the bone marrow. She received a small dose of 100mg obinutuzumab but unfortunately developed tumor lysis syndrome following this. (2) Sepsis Status: Acute Plan: -- On PO Augmentin now -- Monitor for fevers -- Blood cultures no growth --CXR, 01/01 shows mild opacity at left lung base (3) Elevated liver enzymes Status: Acute Plan: -- bilirubin improving -- US of the liver shows a gallstone in the gallbladder neck associated with mural thickening and pericholecystic fluid. --per IR not enough space to place cholecystostomy tube. monitor for now. Assessment 86 y/o female with history of CLL admitted for fevers and pancytopenia. Plan 1. monitor CBC 2. transfer to med/surg floor 3. continue antibiotics per ID Attending Statement The exam, history, and the medical decision-making described in the above note were completed with the assistance of the mid-level provider. I reviewed and agree with the findings presented. I attest that I had a [id number] encounter with the patient on the same day, and personally performed and documented my assessment and findings in the medical record. Pt seen and examined. Feels well, afebrile, culture negative, HR controlled. Leukopenic today, monitor neutrophil count. Anemia but no transfusion yet. OK for DC from heme onc standpoint, keep fu appt in clinic next week. Problem Qualifiers (1) Sepsis: Qualified Code: A41.9 - Sepsis, due to unspecified organism Amy Durant Jan 07, 2017 14:37 Ofelia King MD Jan 07, 2017 23:37
[2017-01-07 15:18] LABS: BASOPHIL % 0.8 % (0.0-2.0); EOSINOPHIL # 0.1 TH/MM3 (0-0.4); EOSINOPHIL % 1.7 % (0.0-4.0); HEMATOCRIT 29.1 % (35.0-46.0); HEMO FLAGS DIFF FINAL; LYMPH % 28.3 % (9.0-44.0); LYMPHOCYTE # 0.9 TH/MM3 (1.0-4.8); MEAN CELL VOLUME 80.1 FL (80.0-100.0); MEAN CORPUSCULAR HEMOGLOBIN 26.4 PG (27.0-34.0); MONO % 6.4 % (0.0-8.0); NEUT % 62.8 % (16.0-70.0); PLATELET COUNT 165 TH/MM3 (150-450); RED BLOOD COUNT 3.64 MIL/MM3 (4.00-5.30); RED CELL DISTRIBUTION WIDTH 19.7 % (11.6-17.2); WHITE BLOOD COUNT 3.2 TH/MM3 (4.0-11.0)
--- NOTE | 2017-01-07 16:12 | HHI.PR ---
Subjective Remarks tolerating po well, feels better and stronger Objective Vitals Vital Signs Date Time Temp Pulse Resp B/P Pulse Ox O2 Delivery O2 Flow Rate FiO2 01/07/17 12:00 98.3 51 20 121/69 95 01/07/17 12:00 51 01/07/17 10:00 99 01/07/17 08:00 98.1 56 17 136/61 97 01/07/17 08:00 46 01/07/17 07:00 54 01/07/17 06:00 53 01/07/17 04:00 98.6 57 32 134/61 96 01/07/17 04:00 51 01/07/17 02:00 53 01/07/17 00:00 56 01/07/17 00:00 98.3 59 23 147/65 95 01/06/17 22:00 52 01/06/17 20:20 96 Nasal Cannula 2.00 01/06/17 20:00 58 01/06/17 20:00 98.5 58 18 127/59 97 01/06/17 18:00 60 I/O 01/06/17 01/06/17 01/06/17 01/07/17 01/07/17 01/07/17 07:00 15:00 23:00 07:00 15:00 23:00 Intake Total 241 ml 186 ml 277 ml 169 ml 480 ml Output Total 450 ml 950 ml Balance 241 ml 186 ml -173 ml -781 ml 480 ml Intake Oral 60 ml 100 ml 100 ml 480 ml IV Total 181 ml 186 ml 177 ml 69 ml Output Urine Total 450 ml 950 ml # Voids 1 3 6 # Bowel Movements 0 5 6 0 5 Result Diagram: 01/07/17 1500 01/07/17 0550 Imaging Last Impressions Liver Ultrasound 01/04/17 0000 Signed Impressions: Service Date/Time: Wednesday, January 04, 2017 09:27 - CONCLUSION: 1. Heterogeneous echotexture the liver the liver is mildly enlarged. 2. Bilateral pleural effusions. 3. Stable 1.9 x 1.8 cm simple cyst within the liver. 4. Stable simple cyst within the right kidney. 5. 2.6 x 1.9 cm gallstone within the dependent portion of the gallbladder. Ken Banks MD Chest X-Ray 01/04/17 0000 Signed Impressions: Service Date/Time: Wednesday, January 04, 2017 12:19 - CONCLUSION: Worsening aeration Carlton Weiss MD Objective Remarks awake and alert oriented x 3 anicteric lungs no rales or wheezes abdomen- soft, good bowel sounds, no guarding no leg swelling, no calf tenderness neuro exam- non focal A/P Assessment and Plan 86 years old female CLL with tumor lysis syndrome Elevated LFTs from tumor lysis Pancytopenia US with GB stone- no dilated ducts ff LFTS- trending down Medical Oncology - Dr. King ff Acute respiratory Insufficiency- improved- good sats at room air Pneumonia encourage incentive spirometry hourly. monitor Bronchodilators on Augmentin CXR 01/01 mild opacity in left lung base atelectasis vs consolidation Atrial fibrillation- currently in SR- - HR in the 50s - 60s Prior history of hypertension Lopressor 50mg BID-. decrease Cardizem to 30 mg po tid with hold parameter echo EF 60% statin on hold for elevated LFT's. Elevated LFTS- due to tumor lysis- ff trend- Large gallstone in the gallbladder neck. The gallbladder is decompressed with some mural thickening and pericholecystic fluid. Ascites and bilateral small pleural effusions. Splenomegaly. Liver also appears somewhat prominent with coarsened echotexture. Benign-appearing right renal and splenic parenchymal cysts. Discussed with IR 01/01 [address] enough [address] perc cholecystostomy tube. Patient denies any abd pain will monitor clinically. ff LFTs in am. ? GS for lap cholecystectomy- platelet too low MATILDA overlying CKD stage III Tumor lysis syndrome Continue allopurinol 100 mg po daily. Monitor renal function, I/O's, avoid nephrotoxins. Will need K replacement today s/p Fever Left chest port in situ Influenza screen negative on po augmentin Monitor for signs of infections ( Fever, WBC) BC 12/30: NGTD CLL Thrombocytopenia- Pancytopenia Monitor CBC. s/p transfusion 2U PRBC 12/31 Oncology- Dr. King. Further transfusion per Heme Chemotherapy with obinutuzumab, last dose 12/28/16 Type 2 diabetes mellitus Hypothyroidism Low-dose insulin sliding scale ACh S TSH is normal 12/22/16. Continue Synthroid 75 g by mouth daily on metfromin as OP- DC with kidney insufficiency Hypokalemia- replaced here per ICU protocol on po KCL PROPH: SCDs for DVT prophylaxis. Not on pharmacologic DVT prophylaxis due to thrombocytopenia ACCESS: L chest port accessed. Transfer to Oncology floor Increase activity Hugh Escoto MD Jan 07, 2017 16:12
--- NOTE | 2017-01-07 16:33 | HHI.IDPN ---
Subjective Subjective Remarks JHONATAN [facility]ly [facility] for Mrs. Chavez is a pleasant 86-year-old woman initially diagnosed CLL in 1989. She received Leukeran as treatment in [id number]. Leukeran was discontinued to the cytopenias. However after stopping Leukeran, her white count has doubled over a short period of time to a white count of greater than 200,000 in November. She was confirmed to have CLL infiltrating the bone marrow. Ultimately, it was decided she needs treatment. Her first dose of obinutuzumab was administered. On a small dose of 100 mg, her course was complicated by acute tumor lysis syndrome the following day with renal function worsening. Uric acid increased, calcium decreased, potassium decreased, however it resulted in a significant response of her white count decreasing to 32,000. She was supported with IV fluid hydration during the last admission. She met with Dr. Yao who placed an [id number] during the hospitalization prior to being discharged home. On December 28, she resumed her treatment for the CLL. She had recovered. Her course was complicated by some tachycardia from her atrial fibrillation during the infusion. Dr. Guadarrama's office, her digital production artist was consulted. She was given an extra dose of metoprolol. We were able to administer chemotherapy uneventfully well. She had a follow up with Dr. Guadarrama the day prior to her admission. On day of admission patient had fevers, blood cultures drawn, patient tachycardic and concern for sepsis so patient admitted to and then transferred to [facility]. Overnight events reviewed. doing good feeling tired. Afebrile No abdominal pain. Had 2-3 episodes of loose BM but was on stool softener which is on hold. off pressors BC remain negative Non neutropenic Antibiotics zosyn IV Lines Port site with no e.o infection Past Medical History reviewed Allergies: Coded Allergies: No Known Allergies (Unverified , 12/30/16) Objective . Vital Signs Date Time Temp Pulse Resp B/P Pulse Ox O2 Delivery O2 Flow Rate FiO2 01/07/17 12:00 98.3 51 20 121/69 95 01/07/17 12:00 51 01/07/17 10:00 99 01/07/17 08:00 98.1 56 17 136/61 97 01/07/17 08:00 46 01/07/17 07:00 54 01/07/17 06:00 53 01/07/17 04:00 98.6 57 32 134/61 96 01/07/17 04:00 51 01/07/17 02:00 53 01/07/17 00:00 56 01/07/17 00:00 98.3 59 23 147/65 95 01/06/17 22:00 52 01/06/17 20:20 96 Nasal Cannula 2.00 01/06/17 20:00 58 01/06/17 20:00 98.5 58 18 127/59 97 01/06/17 18:00 60 01/06/17 01/06/17 01/07/17 15:00 23:00 07:00 Intake Total 186 ml 277 ml 169 ml Output Total 450 ml 950 ml Balance 186 ml -173 ml -781 ml Intake Oral 100 ml 100 ml IV Total 186 ml 177 ml 69 ml Output Urine Total 450 ml 950 ml # Voids 3 # Bowel Movements 5 6 0 . Laboratory Tests Test 01/06/17 01/07/17 13:15 15:00 White Blood Count 2.7 TH/MM3 3.2 TH/MM3 Red Blood Count 3.06 MIL/MM3 3.64 MIL/MM3 Hemoglobin 8.2 GM/DL 9.6 GM/DL Hematocrit 24.7 % 29.1 % Mean Corpuscular Volume 81.0 FL 80.1 FL Mean Corpuscular Hemoglobin 26.7 PG 26.4 PG Mean Corpuscular Hemoglobin 33.0 % 33.0 % Concent Red Cell Distribution Width 19.2 % 19.7 % Platelet Count 118 TH/MM3 165 TH/MM3 Mean Platelet Volume 8.6 FL 8.0 FL Neutrophils (%) (Auto) 68.1 % 62.8 % Lymphocytes (%) (Auto) 22.6 % 28.3 % Monocytes (%) (Auto) 5.7 % 6.4 % Eosinophils (%) (Auto) 2.6 % 1.7 % Basophils (%) (Auto) 1.0 % 0.8 % Neutrophils # (Auto) 1.8 TH/MM3 2.0 TH/MM3 Lymphocytes # (Auto) 0.6 TH/MM3 0.9 TH/MM3 Monocytes # (Auto) 0.2 TH/MM3 0.2 TH/MM3 Eosinophils # (Auto) 0.1 TH/MM3 0.1 TH/MM3 Basophils # (Auto) 0.0 TH/MM3 0.0 TH/MM3 CBC Comment DIFF FINAL DIFF FINAL Differential Comment Laboratory Tests Test 01/06/17 01/07/17 01/07/17 13:15 00:10 05:50 Sodium Level 142 MEQ/L Potassium Level 3.3 MEQ/L 3.8 MEQ/L Chloride Level 106 MEQ/L Carbon Dioxide Level 29.1 MEQ/L Anion Gap 7 MEQ/L Blood Urea Nitrogen 16 MG/DL Creatinine 1.34 MG/DL 1.33 MG/DL Estimat Glomerular Filtration 38 ML/MIN 38 ML/MIN Rate Random Glucose 140 MG/DL Calcium Level 7.8 MG/DL Total Bilirubin 1.0 MG/DL Aspartate Amino Transf 70 U/L (AST/SGOT) Alanine Aminotransferase 130 U/L (ALT/SGPT) Alkaline Phosphatase 55 U/L Total Protein 4.3 GM/DL Albumin 2.0 GM/DL Microbiology Date/Time Procedure Status Source Growth 01/04/17 22:45 Aerobic Blood Culture - Preliminary Resulted Blood Line NO GROWTH IN 3 DAYS 01/04/17 22:45 Anaerobic Blood Culture - Preliminary Resulted Blood Line NO GROWTH IN 3 DAYS 01/05/17 00:14 Aerobic Blood Culture - Preliminary Resulted Blood Line NO GROWTH IN 2 DAYS 01/05/17 00:14 Anaerobic Blood Culture - Preliminary Resulted Blood Line NO GROWTH IN 2 DAYS Imaging Last Impressions Liver Ultrasound 01/01/17 0000 Signed Impressions: Service Date/Time: Sunday, January 01, 2017 08:32 - CONCLUSION: 1. Large gallstone in the gallbladder neck. The gallbladder is decompressed with some mural thickening and pericholecystic fluid. 2. Ascites and bilateral small pleural effusions. 3. Splenomegaly. Liver also appears somewhat prominent with coarsened echotexture. 4. Benign-appearing right renal and splenic parenchymal cysts. Jeremy Mullen MD Chest X-Ray 01/01/17 0000 Signed Impressions: Service Date/Time: Sunday, January 01, 2017 03:59 - CONCLUSION: Mild opacity at the left lung base representing either atelectasis or consolidation. Carlton Chavis MD Physical Exam GENERAL: No acute distress. She is awake and alert. HEENT: Head is atraumatic. Extraocular movements grossly intact, pupils reactive to light. No icterus. Oropharynx no visible lesions. NECK: Supple. No adenopathy. LUNGS: Decreased clear breath sounds HEART: Irregular rate and rhythm. No murmurs, rubs or gallops. ABDOMEN: Bowel sounds present, soft, nontender. EXTREMITIES: No clubbing or cyanosis. 1+ edema at the ankles. SKIN: No diffuse rash. NEUROLOGIC: Patient is alert and oriented. No gross focal findings. PSYCHIATRIC: The patient calm and cooperative. Assessment & Plan Remarks IMPRESSION 1. Fever possible sepsis on admission. Immune compromised host. 2. CLL 3. Pancytopenia following chemotherapy now improved. 4. Gallbladder disease suspicious for acute calculous cholecystitis on ultrasound but clinically not symptomatic. 5. Abnormal LFTs: cholecystitis, sepsis 6. Acute renal failure: sepsis, prerenal, meds. RECOMMENDATIONS Continue oral augmentin. If tolerated and clinically stable will consider discharge if cleared by other MDs. Recommend a course of Augmentin 7 more days. Monitor LFTs. Monitor temperature Monitor blood cultures. Ketty Foreman MD Jan 07, 2017 16:33
[2017-01-07] MEDS: DILTIAZEM HCL 30 MG TAB PO SCH (18:08)
[2017-01-08] VITALS: BP 135/64; PULSE 97; RESP 18; TEMP 98.1; O2SAT 91
[2017-01-08] MEDS: CHLORHEXIDINE GLUCONATE 2 % 1 PACK (2 CLOTHS) TOP SCH (03:44)
[2017-01-08 04:00] VITALS: BP 108/66; PULSE 75; RESP 16; TEMP 98.3; O2SAT 93
[2017-01-08] MEDS: LEVOTHYROXINE SODIUM 75 MCG TAB PO SCH (05:04)
[2017-01-08] MEDS: INSULIN ASPART SUPPLEMENTAL SCALE SQ SCH ×2 (05:08→11:00)
[2017-01-08 07:31] LABS: AUTOMATED NEUTROPHIL # 1.7 TH/MM3 (1.8-7.7); BASOPHIL % 0.9 % (0.0-2.0); EOSINOPHIL # 0.1 TH/MM3 (0-0.4); EOSINOPHIL % 1.8 % (0.0-4.0); HEMO FLAGS DIFF FINAL; LYMPH % 32.4 % (9.0-44.0); LYMPHOCYTE # 0.9 TH/MM3 (1.0-4.8); MEAN CELL VOLUME 79.7 FL (80.0-100.0); MEAN CORPUSCULAR HEMOGLOBIN 26.6 PG (27.0-34.0); MEAN CORPUSCULAR HGB CONC 33.4 % (32.0-36.0); MONO % 5.7 % (0.0-8.0); NEUT % 59.2 % (16.0-70.0); PLATELET COUNT 158 TH/MM3 (150-450); RED BLOOD COUNT 3.51 MIL/MM3 (4.00-5.30); RED CELL DISTRIBUTION WIDTH 19.3 % (11.6-17.2); WHITE BLOOD COUNT 2.9 TH/MM3 (4.0-11.0)
[2017-01-08 08:00] VITALS: BP 114/85; PULSE 90; RESP 19; TEMP 98.5; O2SAT 92
[2017-01-08] MEDS: DOCUSATE SODIUM 100 MG CAP PO SCH (09:00)
[2017-01-08] MEDS: POTASSIUM CHLORIDE 10 MEQ CONTROLLED RELEASE TAB PO SCH (09:53)
[2017-01-08] MEDS: PANTOPRAZOLE SOD 40 MG DELAYED RELEASE TAB PO SCH (09:53)
[2017-01-08] MEDS: ALLOPURINOL 100 MG TAB PO SCH (09:53)
[2017-01-08] MEDS: AMOXICILLIN/CLAVULANATE K 875 MG TAB PO SCH (09:54)
[2017-01-08] MEDS: METOPROLOL TARTRATE 25 MG TAB PO SCH (09:54)
[2017-01-08] MEDS: DILTIAZEM HCL 30 MG TAB PO SCH ×2 (09:57→13:35)
[2017-01-08 12:25] VITALS: PULSE 97
--- NOTE | 2017-01-08 13:25 | PD.ONC.PN ---
Subjective Subjective Remarks Afebrile overnight. patient feeling well. Breathing well. "when can I go home? " Objective Data Date Time Temp Pulse Resp B/P Pulse Ox O2 Delivery O2 Flow Rate FiO2 01/08/17 12:25 97 01/08/17 08:00 98.5 90 19 114/85 92 01/08/17 04:00 98.3 75 16 108/66 93 01/08/17 00:00 98.1 97 18 135/64 91 01/07/17 22:30 83 01/07/17 20:00 98.0 91 16 124/72 93 01/07/17 19:19 96 21 01/07/17 18:00 88 01/07/17 16:00 56 01/07/17 16:00 98.1 56 20 128/59 96 01/07/17 14:00 62 01/08/17 01/08/17 01/08/17 07:00 15:00 23:00 Intake Total 250 ml Output Total 700 ml 675 ml Balance -450 ml -675 ml Result Diagram: 01/08/17 0510 01/07/17 0550 Laboratory Results Laboratory Tests Test 01/07/17 01/08/17 15:00 05:10 White Blood Count 3.2 TH/MM3 2.9 TH/MM3 Red Blood Count 3.64 MIL/MM3 3.51 MIL/MM3 Hemoglobin 9.6 GM/DL 9.3 GM/DL Hematocrit 29.1 % 28.0 % Mean Corpuscular Volume 80.1 FL 79.7 FL Mean Corpuscular Hemoglobin 26.4 PG 26.6 PG Mean Corpuscular Hemoglobin 33.0 % 33.4 % Concent Red Cell Distribution Width 19.7 % 19.3 % Platelet Count 165 TH/MM3 158 TH/MM3 Mean Platelet Volume 8.0 FL 8.4 FL Neutrophils (%) (Auto) 62.8 % 59.2 % Lymphocytes (%) (Auto) 28.3 % 32.4 % Monocytes (%) (Auto) 6.4 % 5.7 % Eosinophils (%) (Auto) 1.7 % 1.8 % Basophils (%) (Auto) 0.8 % 0.9 % Neutrophils # (Auto) 2.0 TH/MM3 1.7 TH/MM3 Lymphocytes # (Auto) 0.9 TH/MM3 0.9 TH/MM3 Monocytes # (Auto) 0.2 TH/MM3 0.2 TH/MM3 Eosinophils # (Auto) 0.1 TH/MM3 0.1 TH/MM3 Basophils # (Auto) 0.0 TH/MM3 0.0 TH/MM3 CBC Comment DIFF FINAL DIFF FINAL Differential Comment Administered Medications Medications (Trade) Dose Ordered Sig/Loretta Route PRN Reason Start Time Stop Time Status Last Admin Dose Admin Heparin Sodium (Porcine) (Heparin Central Flush) 500 units DAILY IV FLUSH 12/31/16 09:00 01/08/17 09:54 Allopurinol (Zyloprim) 100 mg DAILY PO 12/31/16 09:00 01/08/17 09:53 Levothyroxine Sodium (Synthroid) 75 mcg DAILY@06 PO 12/31/16 06:00 01/08/17 05:04 Acetaminophen (Tylenol) 650 mg Q6H PRN PO PAIN 1-3 OR TEMP >101 12/31/16 03:30 01/04/17 17:47 Docusate Sodium (Colace) 100 mg BID PO 12/31/16 09:00 01/06/17 19:41 Chlorhexidine Gluconate Taper DAILY@04 TOP 12/31/16 04:00 12/27/17 03:59 01/06/17 04:00 Diltiazem HCl/ Sodium Chloride (Cardizem Inj/NS Inj) 125 ml @ 0 mls/hr TITRATE IV 01/02/17 01:15 01/04/17 07:24 Metoprolol Tartrate (Lopressor) 50 mg Q12HR PO 01/04/17 09:00 01/08/17 09:54 Potassium Chloride (KCl) 10 meq Q12HR PO 01/06/17 21:00 01/08/17 09:53 Pantoprazole Sodium (Protonix) 40 mg DAILY PO 01/07/17 09:00 01/08/17 09:53 Amoxicillin/ Clavulanate Potassium (Augmentin) 875 mg Q12HR PO 01/06/17 21:00 01/08/17 09:54 Diltiazem HCl (Cardizem) 30 mg TID PO 01/07/17 18:00 01/08/17 09:57 Objective Remarks GENERAL: Elderly female, sitting up in bed in [facility]. SKIN: Warm and dry. HEAD: Normocephalic. EYES: No injection or drainage. NECK: Supple, trachea midline. CARDIOVASCULAR: Regular rate and rhythm RESPIRATORY: Breath sounds equal bilaterally. No accessory muscle use. GASTROINTESTINAL: Abdomen soft, non-tender, nondistended. EXTREMITIES: No cyanosis NEUROLOGICAL: awake and alert, normal speech. moving extremities. Assessment/Plan Problem List: (1) Chronic lymphocytic leukemia Status: Acute Plan: -- Last treated with obinutuzumab on 12/28. Hx/Workup: Originally diagnosed with CLL in 1989. She was on Leukeran, however this has been discontinued. In November her white count was greater than 200K. She was confirmed to have CLL infiltrating the bone marrow. She received a small dose of 100mg obinutuzumab but unfortunately developed tumor lysis syndrome following this. (2) Sepsis Status: Acute Plan: -- On PO Augmentin -- Blood cultures no growth (3) Elevated liver enzymes Status: Resolved Plan: -- bilirubin improving -- US of the liver shows a gallstone in the gallbladder neck associated with mural thickening and pericholecystic fluid. --per IR not enough space to place cholecystostomy tube. monitor for now. Assessment 86 y/o female with history of CLL admitted for fevers and pancytopenia. Plan 1. clear for discharge 2. follow up in oncology clinic next week. Attending Statement Discussed with MATEO Peres. Follow next week at [facility]. Problem Qualifiers (1) Sepsis: Qualified Code: A41.9 - Sepsis, due to unspecified organism Amy Durant Jan 08, 2017 13:25 Ofelia King MD Jan 08, 2017 17:11
[2017-01-08 13:34] VITALS: BP 112/68; PULSE 81; RESP 18; TEMP 96.4; O2SAT 94
--- NOTE | 2017-01-08 13:59 | HHI.PR ---
Subjective Remarks feels great- ready to go home no pain or shortness of breath no diarrhea Objective Vitals Vital Signs Date Time Temp Pulse Resp B/P Pulse Ox O2 Delivery O2 Flow Rate FiO2 01/08/17 13:34 96.4 81 18 112/68 94 01/08/17 12:25 97 01/08/17 08:00 98.5 90 19 114/85 92 01/08/17 04:00 98.3 75 16 108/66 93 01/08/17 00:00 98.1 97 18 135/64 91 01/07/17 22:30 83 01/07/17 20:00 98.0 91 16 124/72 93 01/07/17 19:19 96 21 01/07/17 18:00 88 01/07/17 16:00 56 01/07/17 16:00 98.1 56 20 128/59 96 01/07/17 14:00 62 I/O 01/07/17 01/07/17 01/07/17 01/08/17 01/08/17 01/08/17 07:00 15:00 23:00 07:00 15:00 23:00 Intake Total 169 ml 480 ml 150 ml 250 ml Output Total 950 ml 300 ml 700 ml 675 ml Balance -781 ml 480 ml -150 ml -450 ml -675 ml Intake Oral 100 ml 480 ml 150 ml 250 ml IV Total 69 ml Output Urine Total 950 ml 300 ml 700 ml 675 ml # Voids 6 # Bowel Movements 0 5 0 0 2 Result Diagram: 01/08/17 0510 01/07/17 0550 Imaging Last Impressions Liver Ultrasound 01/04/17 0000 Signed Impressions: Service Date/Time: Wednesday, January 04, 2017 09:27 - CONCLUSION: 1. Heterogeneous echotexture the liver the liver is mildly enlarged. 2. Bilateral pleural effusions. 3. Stable 1.9 x 1.8 cm simple cyst within the liver. 4. Stable simple cyst within the right kidney. 5. 2.6 x 1.9 cm gallstone within the dependent portion of the gallbladder. Ken Banks MD Chest X-Ray 01/04/17 0000 Signed Impressions: Service Date/Time: Wednesday, January 04, 2017 12:19 - CONCLUSION: Worsening aeration Carlton Weiss MD Objective Remarks awake and alert oriented x 3 anicteric irregularly irregular rhythm lungs no rales or wheezes abdomen- soft, good bowel sounds, no guarding no leg swelling, no calf tenderness neuro exam- non focal A/P Assessment and Plan 86 years old female CLL with tumor lysis syndrome Elevated LFTs from tumor lysis Pancytopenia US with GB stone- no dilated ducts ff LFTS- trending down Medical Oncology - Dr. King ff cleared for DC Acute respiratory Insufficiency- improved- good sats at room air Pneumonia encourage incentive spirometry hourly. monitor Bronchodilators on Augmentin x 1 week CXR 01/01 mild opacity in left lung base atelectasis vs consolidation Atrial fibrillation- currently in SR- -rate improves-80s Prior history of hypertension Lopressor 50mg BID-. Cardizem to 30 mg po tid echo EF 60% statin on hold for elevated LFT's. Elevated LFTS- due to tumor lysis- ff trend- Large gallstone in the gallbladder neck. The gallbladder is decompressed with some mural thickening and pericholecystic fluid. Ascites and bilateral small pleural effusions. Splenomegaly. Liver also appears somewhat prominent with coarsened echotexture. Benign-appearing right renal and splenic parenchymal cysts. Discussed with IR 01/01 [address] perc cholecystostomy tube. Patient denies any abd pain will monitor clinically. LFTs stable OP ff up - lap cholecystectomy- in future if becomes symptomatic MATILDA overlying CKD stage III Tumor lysis syndrome Continue allopurinol 100 mg po daily. Monitor renal function, I/O's, avoid nephrotoxins. s/p Fever Left chest port in situ Influenza screen negative on po augmentin Monitor for signs of infections ( Fever, WBC) BC 12/30: NGTD CLL Thrombocytopenia- Pancytopenia Monitor CBC. s/p transfusion 2U PRBC 12/31 Oncology- Dr. King. Further transfusion per Heme Chemotherapy with obinutuzumab, last dose 12/28/16 Type 2 diabetes mellitus Hypothyroidism Low-dose insulin sliding scale ACh S TSH is normal 12/22/16. Continue Synthroid 75 g by mouth daily on metformin s OP- DC with kidney insufficiency Hypokalemia- replaced on po KCL DC today OP ff up with Oncology Hugh Escoto MD Jan 08, 2017 13:59
--- NOTE | 2017-01-08 14:01 | HHI.FF ---
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 My clinical findings support the need for the requested home health care services because: Ltd mobility - disease progression Deconditioned w/ increased weakness Need for psychosocial assistance (monitor Blood sugars) Need for psychosocial assistance Hugh Escoto MD Jan 08, 2017 14:01 Hugh Escoto MD Jan 08, 2017 14:01
[2017-01-08] MEDS ORDERED: AMOX875T2 PO (14:05)
[2017-01-08] MEDS ORDERED: PANT40TA3 PO (14:05)
[2017-01-08] MEDS ORDERED: DILT31TA PO (14:05)
[2017-01-08] MEDS ORDERED: DOCU1CAP39 PO (14:05)
[2017-01-08] MEDS ORDERED: POTA-243 PO (14:05)
--- NOTE | 2017-01-08 14:09 | HHI.DS ---
Discharge Summary Admission Date Dec 30, 2016 at 18:11 Discharge Date: Jan 08, 2017 Admitting Diagnosis sepsis (1) Sepsis ICD Code: A41.9 Diagnosis: Principal (2) Tumor lysis syndrome following antineoplastic drug therapy ICD Code: E88.3 Diagnosis: Principal (3) Acute renal failure ICD Code: N17.9 Diagnosis: Principal (4) Atrial fibrillation with RVR ICD Code: I48.91 Diagnosis: Secondary Procedures none Brief History - From Admission 86 yo F with PMH of CLL originally diagnosed in 1998, diabetes mellitus, hypercholesterolemia, hypothyroidism, CKD. She had been treated with Leukoveran which was discontinued about 8 months ago. She had progression of disease consisting of doubling of WBC, presence of thrombocytopenia and anemia and therefore was started on chemotherapy with obinutuzumab (given initial test dose 12/21/16). She developed hypotension and hypoxia following chemo and was admitted to [facility] on 12/22 and found to have abrupt response in therapy. She developed tumor lysis syndrome. She was discharged on levaquin. She states that she had chemo again on 12/28/16. Tonight she developed fever 101 and contacted her oncologist, Dr. King who recommended evaluation in the ED. She states that she feels fatigued. Had one episode of diarrhea yesterday. Complains of nausea without vomiting. Complains of Mild headache without neck pain or stiffness. Denies sore throat, chest pain, cough, SOB, abdominal Pain, tenderness or drainage at the port site. Blood cultures have been obtained in the emergency department. Influenza is negative. Urinalysis is unremarkable. Her white blood cell count is 4.6, hemoglobin 9.7, platelets 22, creatinine 2. Heart rate was initially 105-117 in the ED but has improved with IV fluids and is currently in 80s to 90s. She had a blood pressure of 70/42 with mean arterial pressure of 51. She received 2 L normal saline bolus in the ED and subsequent mean arterial pressure has been 65-84. She has voided in the ED. Lactic acid is normal. She received vancomycin and cefepime in the ED. CBC/BMP: 01/08/17 0510 01/07/17 0550 Significant Findings Laboratory Tests Test 01/06/17 01/07/17 01/07/17 01/08/17 13:15 05:50 15:00 05:10 White Blood Count 2.7 TH/MM3 3.2 TH/MM3 2.9 TH/MM3 (4.0-11.0) (4.0-11.0) (4.0-11.0) Red Blood Count 3.06 MIL/MM3 3.64 MIL/MM3 3.51 MIL/MM3 (4.00-5.30) (4.00-5.30) (4.00-5.30) Hemoglobin 8.2 GM/DL 9.6 GM/DL 9.3 GM/DL (11.6-15.3) (11.6-15.3) (11.6-15.3) Hematocrit 24.7 % 29.1 % 28.0 % (35.0-46.0) (35.0-46.0) (35.0-46.0) Mean Corpuscular Hemoglobin 26.7 PG 26.4 PG 26.6 PG (27.0-34.0) (27.0-34.0) (27.0-34.0) Red Cell Distribution Width 19.2 % 19.7 % 19.3 % (11.6-17.2) (11.6-17.2) (11.6-17.2) Platelet Count 118 TH/MM3 (150-450) Lymphocytes # (Auto) 0.6 TH/MM3 0.9 TH/MM3 0.9 TH/MM3 (1.0-4.8) (1.0-4.8) (1.0-4.8) Potassium Level 3.3 MEQ/L (3.5-5.1) Creatinine 1.34 MG/DL 1.33 MG/DL (0.50-1.00) (0.50-1.00) Estimat Glomerular Filtration 38 ML/MIN (>89) 38 ML/MIN (>89) Rate Random Glucose 140 MG/DL (74-106) Calcium Level 7.8 MG/DL (8.5-10.1) Aspartate Amino Transf 70 U/L (15-37) (AST/SGOT) Alanine Aminotransferase 130 U/L (10-53) (ALT/SGPT) Total Protein 4.3 GM/DL (6.4-8.2) Albumin 2.0 GM/DL (3.4-5.0) Mean Corpuscular Volume 79.7 FL (80.0-100.0) Neutrophils # (Auto) 1.7 TH/MM3 (1.8-7.7) Imaging Last Impressions Liver Ultrasound 01/04/17 0000 Signed Impressions: Service Date/Time: Wednesday, January 04, 2017 09:27 - CONCLUSION: 1. Heterogeneous echotexture the liver the liver is mildly enlarged. 2. Bilateral pleural effusions. 3. Stable 1.9 x 1.8 cm simple cyst within the liver. 4. Stable simple cyst within the right kidney. 5. 2.6 x 1.9 cm gallstone within the dependent portion of the gallbladder. Ken Banks MD Chest X-Ray 01/04/17 0000 Signed Impressions: Service Date/Time: Wednesday, January 04, 2017 12:19 - CONCLUSION: Worsening aeration Carlton Weiss MD PE at Discharge awake and alert oriented x 3 anicteric lungs no rales or wheezes irregularly irregular rhythm abdomen- soft, good bowel sounds, no guarding no leg swelling, no calf tenderness neuro exam- non focal Pt update on day of discharge afebrile, no pain up and ambulating, very interactive iregularly irregular rhythm- rate controlled Hospital Course 86 years old female CLL with tumor lysis syndrome Elevated LFTs from tumor lysis Pancytopenia US with GB stone- no dilated ducts ff LFTS- trending down Medical Oncology - Dr. King ff cleared for DC Acute respiratory Insufficiency- improved- good sats at room air Pneumonia encourage incentive spirometry hourly. monitor Bronchodilators on Augmentin x 1 week CXR 01/01 mild opacity in left lung base atelectasis vs consolidation Atrial fibrillation- currently in SR- -rate improves-80s Prior history of hypertension Lopressor 50mg BID-. Cardizem to 30 mg po tid echo EF 60% statin on hold for elevated LFT's. Elevated LFTS- due to tumor lysis- ff trend- Large gallstone in the gallbladder neck. The gallbladder is decompressed with some mural thickening and pericholecystic fluid. Ascites and bilateral small pleural effusions. Splenomegaly. Liver also appears somewhat prominent with coarsened echotexture. Benign-appearing right renal and splenic parenchymal cysts. Discussed with IR 01/[address] perc cholecystostomy tube. Patient denies any abd pain will monitor clinically. LFTs stable OP ff up - lap cholecystectomy- in future if becomes symptomatic MATILDA overlying CKD stage III Tumor lysis syndrome Continue allopurinol 100 mg po daily. Monitor renal function, I/O's, avoid nephrotoxins. Sepsis in an immunocompromised hosts Left chest port in situ. T down Influenza screen negative on po augmentin x 7 days 875 mg po bid Monitor for signs of infections ( Fever, WBC) BC 12/30: NGTD Pt Condition on Discharge: Stable Discharge Disposition: Disch w/ Home Health Serv Discharge Time: <= 30 minutes Discharge Instructions DIET: Follow Instructions for: Heart Healthy Diet, Diabetic Diet Speech Therapy-Diet Recommends: Regular Activities you can perform: Weight Bearing as Alvin Follow up Referrals: Oncology - 01/12/17 with TEVIN PCP Follow-up - 01/11/17 with BRIEN New Medications: Amoxicillin-Clavulanate (Amoxicillin-Clavulanate) 875-125 mg Tab 875 MG PO Q12HR Infection Days 7 TAB Diltiazem (Cardizem) 30 Mg Tab 30 MG PO TID TACH Days 30 TAB Docusate Sodium (Dok) 100 Mg Cap 100 MG PO BID PRN constipa Days 10 CAP Pantoprazole (Pantoprazole) 40 Mg Tab 40 MG PO DAILY GI Days 30 TAB Potassium Chloride ER (Klor-Con 10) 10 Meq Tab 10 MEQ PO Q12HR elec Days 30 TAB Continued Medications: Allopurinol (Allopurinol) 100 Mg Tab 100 MG PO DAILY Gout #30 Ref 1 TAB Levothyroxine (Levothyroxine) 75 Mcg Tab 75 MCG PO DAILY Thyroid #30 Ref 0 TAB Discontinued Medications: Furosemide (Furosemide) 20 Mg Tab 20 MG PO DAILY PRN EDEMA #30 Ref 0 TAB Levofloxacin (Levaquin) 250 Mg Tab 250 MG PO DAILY bacterial infection #7 TAB Metformin (Metformin) 500 Mg Tab 500 MG PO BIDPC With meals Blood Sugar Management #60 Ref 0 TAB Metoprolol Tartrate (Metoprolol Tartrate) 25 Mg Tab 25 MG PO DAILY #30 Ref 0 TAB Rosuvastatin (Crestor) 10 Mg Tab 10 MG PO HS PRN Cholesterol Management #30 Ref 1 TAB Hugh Escoto MD Jan 08, 2017 14:09
[2017-01-08] MEDS ORDERED: METO25TA3 PO (14:15)
== END 2017-01-08 15:56 | disposition home health service (06) | DRG 871 ==
LOC: PHED 16:34 → PHEDA 18:11 → HIMW 23:35 → HOCB 01-07 19:07
PROVIDERS: ADMIT Internal Medicine; ATTEND Internal Medicine
PROC: 30233R1 Transfusion of Nonautologous Platelets into Peripheral Vein, Percutaneous Approach (ICD-10-PCS; principal; 2016-12-30)
PROC: 30233N1 Transfusion of Nonautologous Red Blood Cells into Peripheral Vein, Percutaneous Approach (ICD-10-PCS; 2016-12-31)
DX: A41.9 Sepsis, unspecified organism (principal); E88.3 Tumor lysis syndrome; I95.9 Hypotension, unspecified; D61.810 Antineoplastic chemotherapy induced pancytopenia; R18.8 Other ascites; J18.9 Pneumonia, unspecified organism; C91.10 Chronic lymphocytic leukemia of B-cell type not having achieved remission; E11.22 Type 2 diabetes mellitus with diabetic chronic kidney disease; K80.10 Calculus of gallbladder with chronic cholecystitis without obstruction; N17.9 Acute kidney failure, unspecified; I48.91 Unspecified atrial fibrillation; N18.3 Chronic kidney disease, stage 3 (moderate); E83.51 Hypocalcemia; E87.6 Hypokalemia; I12.9 Hypertensive chronic kidney disease with stage 1 through stage 4 chronic kidney disease, or unspecified chronic kidney disease; E03.9 Hypothyroidism, unspecified; E78.00 Pure hypercholesterolemia, unspecified; E78.5 Hyperlipidemia, unspecified; H35.30 Unspecified macular degeneration; M19.90 Unspecified osteoarthritis, unspecified site; R16.1 Splenomegaly, not elsewhere classified; Z79.84 Long term (current) use of oral hypoglycemic drugs; Z87.891 Personal history of nicotine dependence; T45.1X5A Adverse effect of antineoplastic and immunosuppressive drugs, initial encounter
CPT/HCPCS: 36430; 71010; 76705; 80053; 80202; 81001; 82550; 82565; 82948; 83605; 83615; 83735; 84100; 84132; 84484; 84550; 85014; 85018; 85025; 85384; 85610; 85730; 86850; 86900; 86901; 86920; 87040; 87641; 87804; 93005; 93306; 94640; 94664; 96361; 96365; 96367; 96375; 96413; 96415; 99212; 99215; C9113; G0463; J0610; J0692; J1100; J1626; J1642; J1815; J1940; J2543; J3370; J3480; J7030; J7050; J7613; J9301; P9016; P9035; Q0163

== ENCOUNTER 2017-07-02 11:54 | Day surgery (SDC) | payer OTHER ==
[~2017-07-02 11:54] MED LIST changes: +AMOX875T2 PO; +DILT31TA PO; +DOCU1CAP39 PO; -FURO20TA PO; -LEVA250T PO; -METF500T PO; +PANT40TA3 PO; +POTA-243 PO; -ROSU10 PO
[2017-07-02] MEDS ORDERED: IOHEXOL 350 MG/ML 50 ML BTL (for RAD DIAG) IVCONTRAST ONE (11:55)
[2017-07-02 12:10] VITALS: BP 130/83; PULSE 86; RESP 18; TEMP 98.2; O2SAT 92
[2017-07-02] MEDS ORDERED: APIX2.5T PO (12:19)
[2017-07-02] MEDS ORDERED: SODIUM CHLORIDE 0.9% 1000 ML IV SCH (12:30)
[2017-07-02 13:25] VITALS: BP 129/93; PULSE 82; RESP 18; TEMP 98.3; O2SAT 92
--- NOTE | 2017-07-02 14:00 | RADRPT ---
EXAM DATE/TIME: 07/02/2017 12:56 [facility] COMPARISON: No previous studies available for comparison. INDICATIONS : Patient with a history of chronic lymphocytic leukemia, needs port evaluation. MEDICAL HISTORY : Anemia Arthritis AFIB Diabetes Type II High Cholesterol HTN Hpothyroidism Macular degeneration Chronic renal insufficiency Leukemia SURGICAL HISTORY : Appendectomy ENCOUNTER: Initial ACUITY: 4-6 months PAIN SCORE: 0/10 FLUORO TIME: 0.1 minutes IMAGE SERIES: 1 PROCEDURE : 1. Access of [id number]. 2. Port patency injection. The risks, benefits and alternatives to the procedure were explained and verbal and written consent w as obtained. The patient was placed supine. The port was prepped in sterile fashion. Full sterile t echnique was used, including cap, mask, sterile gloves and gown, and a large sterile sheet. Hand hyg iene and 2% chlorhexidine prep was utilized per protocol for cutaneous antisepsis with appropriate dr y time for site. The previously placed port was accessed and positive contrast was injected for evaluation. Injection demonstrates a port within the superior vena cava though this is fixed to the lateral wall of the ve ssel. CONCLUSION: 1. Intraluminal position of the catheter fixed to the lateral wall of the vessel Yoel Rivero MD on July 02, 2017 at 13:58 Board Certified Radiologist. This report was verified electronically.
== END 2017-07-02 13:45 | disposition home or self-care (01) ==
LOC: HROP 11:54 → HRIP 11:57 → HROP 13:45
PROVIDERS: ATTEND Internal Medicine Hematology & Oncology
DX: T85.698A Other mechanical complication of other specified internal prosthetic devices, implants and grafts, initial encounter (principal); C91.10 Chronic lymphocytic leukemia of B-cell type not having achieved remission; I48.91 Unspecified atrial fibrillation; E11.22 Type 2 diabetes mellitus with diabetic chronic kidney disease; I12.9 Hypertensive chronic kidney disease with stage 1 through stage 4 chronic kidney disease, or unspecified chronic kidney disease; N18.9 Chronic kidney disease, unspecified; D63.1 Anemia in chronic kidney disease; H35.30 Unspecified macular degeneration; E78.00 Pure hypercholesterolemia, unspecified
CPT/HCPCS: 36598; J1642; Q9967

== ENCOUNTER 2017-07-15 11:22 | Emergency (ER) | payer OTHER ==
[~2017-07-15] VITALS: Ht 170.2 cm; Wt 71.0 kg
[~2017-07-15 11:22] MED LIST changes: -AMOX875T2 PO; +APIX2.5T PO; -DILT31TA PO; -PANT40TA3 PO; -POTA-243 PO
[2017-07-15 11:41] VITALS: BP 128/74; PULSE 119; RESP 14; TEMP 97.6; O2SAT 100
[2017-07-15] MEDS ORDERED: SODIUM CHLORIDE 0.9% FLUSH 5 ML FLUSH IV FLUSH PRN (11:45)
[2017-07-15] MEDS ORDERED: DILTIAZEM HCL 25 MG/5 ML VIAL IV PUSH ONE (11:45)
[2017-07-15] MEDS ORDERED: SODIUM CHLORIDE 0.9% FLUSH 10 ML FLUSH IVF PRN (11:45)
--- NOTE | 2017-07-15 11:47 | PD ---
HPI Chief Complaint: Cardiac Complaint Time Seen by Provider: 11:39 Travel History International Travel<30 days: No Contact w/Intl Traveler<30days: No Traveled to known affect area: No History of Present Illness HPI 87-year-old female patient with history of hypertension, diabetes, A. fib currently on Eliquis, CLL, presents to the ER today because she states that over last few days she has noticed increased insomnia and some dyspnea on exertion intermittently. She states that she's not short of breath or having chest pains at rest, denies dizziness, coughing, fevers, or any other symptoms. She went to her oncology appointment today to get a booster and was told that her heart rate was high and that her A. fib kicked up. Modifying Factors: None Associated Signs & Symptoms: Fast heart rate, dyspnea on exertion Risk Factors: A. fib history PFSH Past Medical History Hx Anticoagulant Therapy: Yes (WARFARIN) Atrial Fibrillation: Yes Cancer: Yes (LEUKEMIA CLL) Cardiovascular Problems: Yes (HTN, CHOL) Diabetes: Yes (TYPE 2 ) Diminished Hearing: No Thyroid Disease: Yes Menopausal: Yes Dilation and Curettage (D&C): Yes (2013) Past Surgical History Appendectomy: Yes Gynecologic Surgery: Yes (D AND C) Family History Family Hypercholesterolemia: Yes Social History Alcohol Use: No Tobacco Use: No ("QUIT 30+ YEARS AGO" STATED 11/08/16) Substance Use: No Allergies-Medications (Allergen,Severity, Reaction): Coded Allergies: Penicillins (Verified Allergy, Intermediate, VAGINAL INFECTIONS, 07/15/17) Uncoded Allergies: PCN (Allergy, Unknown, 07/15/17) Reported Meds & Prescriptions Reported Meds & Active Scripts Active Metoprolol Tartrate 25 Mg Tab 50 Mg PO Q12HR 30 Days Reported Lasix (Furosemide) 20 Mg Tab Unknown Dose PO DIRECTED PRN Eliquis (Apixaban) 2.5 Mg Tab 2.5 Mg PO BID Allopurinol 100 Mg Tab 100 Mg PO DAILY Levothyroxine (Levothyroxine Sodium) 75 Mcg Tab 75 Mcg PO DAILY Review of Systems Except as stated in HPI: all other systems reviewed are Neg Physical Exam Narrative GENERAL: Well-developed elderly white female patient currently in mild distress. Awake and oriented 3. SKIN: Focused skin assessment warm/dry. HEAD: Atraumatic. Normocephalic. EYES: Pupils equal and round. No scleral icterus. No injection or drainage. ENT: No nasal bleeding or discharge. Mucous membranes pink and moist. NECK: Trachea midline. No JVD. CARDIOVASCULAR: Regular rate and rhythm. No murmur appreciated. RESPIRATORY: No accessory muscle use. Decreased breath sounds at the bases bilaterally. Breath sounds equal bilaterally. GASTROINTESTINAL: Abdomen soft, non-tender, nondistended. Hepatic and splenic margins not palpable. MUSCULOSKELETAL: No obvious deformities. No clubbing. No cyanosis. Trace pitting edema bilaterally of the legs. NEUROLOGICAL: Awake and alert. No obvious cranial nerve deficits. Motor grossly within normal limits. Normal speech. PSYCHIATRIC: Appropriate mood and affect; insight and judgment normal. Data Data Last Documented VS Vital Signs Date Time Temp Pulse Resp B/P (MAP) Pulse Ox O2 Delivery O2 Flow Rate FiO2 07/15/17 13:44 Nasal Cannula 2.00 07/15/17 13:44 82 16 99 110/83 (92) 07/15/17 11:41 97.6 Orders Orders Complete Blood Count With Diff (07/15/17 11:39) Comprehensive Metabolic Panel (07/15/17 11:39) B-Type Natriuretic Peptide (07/15/17 11:39) Ckmb (Isoenzyme) Profile (07/15/17 11:39) Troponin I (07/15/17 11:39) Iv Access Insert/Monitor (07/15/17 11:39) Ecg Monitoring (07/15/17 11:39) Oximetry (07/15/17 11:39) Oxygen Administration (07/15/17 11:39) Chest, Single Ap (07/15/17 11:39) Sodium Chloride 0.9% Flush (Ns Flush) (07/15/17 11:45) Diltiazem Inj (Cardizem Inj) (07/15/17 11:45) Sodium Chloride 0.9% Flush (Ns Flush) (07/15/17 11:45) Furosemide Inj (Lasix Inj) (07/15/17 14:00) Labs Laboratory Tests Test 07/15/17 11:50 White Blood Count 7.1 TH/MM3 Red Blood Count 4.89 MIL/MM3 Hemoglobin 13.3 GM/DL Hematocrit 39.4 % Mean Corpuscular Volume 80.6 FL Mean Corpuscular Hemoglobin 27.1 PG Mean Corpuscular Hemoglobin Concent 33.6 % Red Cell Distribution Width 16.2 % Platelet Count 205 TH/MM3 Mean Platelet Volume 9.6 FL Neutrophils (%) (Auto) 66.4 % Lymphocytes (%) (Auto) 21.7 % Monocytes (%) (Auto) 10.2 % Eosinophils (%) (Auto) 1.1 % Basophils (%) (Auto) 0.6 % Neutrophils # (Auto) 4.8 TH/MM3 Lymphocytes # (Auto) 1.5 TH/MM3 Monocytes # (Auto) 0.7 TH/MM3 Eosinophils # (Auto) 0.1 TH/MM3 Basophils # (Auto) 0.0 TH/MM3 CBC Comment DIFF FINAL Differential Comment Blood Urea Nitrogen 28 MG/DL Creatinine 1.20 MG/DL Random Glucose 189 MG/DL Total Protein 7.1 GM/DL Albumin 3.9 GM/DL Calcium Level 8.7 MG/DL Alkaline Phosphatase 93 U/L Aspartate Amino Transf (AST/SGOT) 28 U/L Alanine Aminotransferase (ALT/SGPT) 48 U/L Total Bilirubin 1.5 MG/DL Sodium Level 141 MEQ/L Potassium Level 3.6 MEQ/L Chloride Level 106 MEQ/L Carbon Dioxide Level 27.2 MEQ/L Anion Gap 8 MEQ/L Estimat Glomerular Filtration Rate 42 ML/MIN Total Creatine Kinase 31 U/L Troponin I 0.02 NG/ML B-Type Natriuretic Peptide 460 PG/ML MDM Medical Decision Making Medical Screen Exam Complete: Yes Emergency Medical Condition: Yes Medical Record Reviewed: Yes Interpretation(s) EKG shows A. fib with RVR at a rate of 106 bpm. No signs of acute ST-T changes. Laboratory Tests Test 07/15/17 11:50 Monocytes (%) (Auto) 10.2 % (0.0-8.0) Blood Urea Nitrogen 28 MG/DL (7-18) Creatinine 1.20 MG/DL (0.50-1.00) Random Glucose 189 MG/DL (74-106) Total Bilirubin 1.5 MG/DL (0.2-1.0) Estimat Glomerular Filtration Rate 42 ML/MIN (>89) B-Type Natriuretic Peptide 460 PG/ML (0-100) Last 24 hours Impressions Chest X-Ray 07/15/17 5859 Signed Impressions: Service Date/Time: July 12:10 - CONCLUSION: Cardiomegaly with clear lungs. Alton Beatty Jr., MD Differential Diagnosis Shortness of breath: Dysrhythmias versus CHF versus pneumonia versus metabolic issues Narrative Course Patient was initially given Cardizem with good response in heart rate, heart rate came down to the 60s. Her symptoms did improve with a heart rate. Lab work did not show significant metabolic issues. Chest x-ray shows cardiomegaly with no signs of acute pulmonary processes. Case was discussed with Dr. Cosby , patient's pharmacy ancillary, and he states that we can manage this one of 2 ways. He states that first of all, patient could be released with additional by mouth Cardizem 120 and some small amount of Lasix. However, considering patient's age , he thinks that admitting the patient for further treatment with the same medications and having pharmacy ancillary see the patient with the a safer approach. I have discussed his advice with the patient and she states that she had recently gone and C. difficile diarrhea from the hospital and is just getting over it, is fairly concerned about entering the hospital again. I have talked her about the fact that this wrist should be fairly low because she will not be on any antibiotics. However, she is quite reluctant and is refusing to stay. I have talked her about the fact that we have to be more cautious with her. She states understanding, but still refuses to stay. At this point, patient will be released and will be started on the medications recommended by her pharmacy ancillary. She should return for any worsening in symptoms, dizziness, shortness of breath, chest pains, or other symptoms as needed. I have also explained to her that medications can cause her symptoms to deteriorate and that did duration can cause cardiac issues including involve morbidity and . The plan and the risks were discussed with the patient and she states understanding. Diagnosis Primary Impression: Atrial fibrillation with RVR Additional Impression: CHF (congestive heart failure) Med/Other Pt SpecificInfo: Prescription(s) given Scripts Diltiazem (Cardizem) 120 Mg Tab 120 MG PO TID for Angina, #20 TAB 0 Refills Prov: Paolo Roblero MD 07/15/17 Disposition: 01 DISCHARGE HOME Condition: Stable Paolo Roblero MD Jul 15, 2017 11:47
[2017-07-15 11:52] VITALS: O2SAT 100
[2017-07-15 11:58] VITALS: BP 119/93; PULSE 88; RESP 16; O2SAT 98
[2017-07-15 11:58] LABS: AUTOMATED NEUTROPHIL # 4.8 TH/MM3 (1.8-7.7); BASOPHIL % 0.6 % (0.0-2.0); EOSINOPHIL # 0.1 TH/MM3 (0-0.4); EOSINOPHIL % 1.1 % (0.0-4.0); HEMATOCRIT 39.4 % (35.0-46.0); HEMO FLAGS DIFF FINAL; LYMPH % 21.7 % (9.0-44.0); LYMPHOCYTE # 1.5 TH/MM3 (1.0-4.8); MEAN CELL VOLUME 80.6 FL (80.0-100.0); MEAN CORPUSCULAR HEMOGLOBIN 27.1 PG (27.0-34.0); MEAN CORPUSCULAR HGB CONC 33.6 % (32.0-36.0); MONO % 10.2 % (0.0-8.0); NEUT % 66.4 % (16.0-70.0); PLATELET COUNT 205 TH/MM3 (150-450); RED BLOOD COUNT 4.89 MIL/MM3 (4.00-5.30); RED CELL DISTRIBUTION WIDTH 16.2 % (11.6-17.2); WHITE BLOOD COUNT 7.1 TH/MM3 (4.0-11.0)
[2017-07-15] MEDS ORDERED: FURO1TAB62 PO (12:02)
[2017-07-15 12:10] LABS: CHLORIDE 106 MEQ/L (98-107); POTASSIUM 3.6 MEQ/L (3.5-5.1); SODIUM (NA) 141 MEQ/L (136-145)
[2017-07-15 12:11] VITALS: BP 101/58; PULSE 85; RESP 16; O2SAT 97
[2017-07-15 12:15] LABS: ANION GAP 8 MEQ/L (5-15); BICARBONATE 27.2 MEQ/L (21.0-32.0); BLOOD UREA NITROGEN 28 MG/DL (7-18)
[2017-07-15 12:18] LABS: ALT (GPT) 48 U/L (10-53); AST (GOT) 28 U/L (15-37); GLOMERULAR FILTRATION RATE 42 ML/MIN (>89)
[2017-07-15 12:20] VITALS: BP 115/69; PULSE 67; RESP 14; O2SAT 100
[2017-07-15 12:20] LABS: TOTAL BILIRUBIN ADULT 1.5 MG/DL (0.2-1.0)
[2017-07-15 12:21] LABS: ALKALINE PHOSPHATASE 93 U/L (45-117)
[2017-07-15 12:28] LABS: CREATINE KINASE 31 U/L (26-192)
--- NOTE | 2017-07-15 12:36 | RADRPT ---
EXAM DATE/TIME: 07/15/2017 12:10 [facility] COMPARISON: CHEST SINGLE AP, January 04, 2017, 12:19. INDICATIONS : Patint experienced episode of A/fib this morning. MEDICAL HISTORY : Hypothyroidism. Hypercholesterolemia. Hypertension. A-Fib. Leukemia. Diabetes SURGICAL HISTORY : Appendectomy. ENCOUNTER: Initial ACUITY: 1 day PAIN SCORE: 3/10 LOCATION: Bilateral upper chest FINDINGS: A single portable frontal view of the chest limits the right costophrenic angle. Heart is mildly enla rged. Pulmonary vessels remain distinct. No discrete infiltrate or effusion. Power port overlies left chest. A degenerative scoliotic spine. CONCLUSION: Cardiomegaly with clear lungs. Alton Beatty Jr., MD on July 15, 2017 at 12:34 Board Certified Radiologist. This report was verified electronically.
[2017-07-15 13:44] VITALS: BP 110/83; PULSE 82; RESP 16; O2SAT 99
[2017-07-15] MEDS ORDERED: FUROSEMIDE 20 MG/2 ML VIAL IV PUSH ONE (14:00)
[2017-07-15] MEDS ORDERED: CARD120T4 PO (14:08)
--- NOTE | 2017-07-15 18:52 | EKG ---
Date Performed: 07/15/2017 Time Performed: 11:29:51 PTAGE: 87 years EKG: ATRIAL FIBRILLATION WITH RAPID VENTRICULAR RESPONSE LEFT BUNDLE BRANCH BLOCK ABNORMAL ECG PREVIOUS TRACING : 12/30/2016 17.14 Compared to previous tracing, left bundle branch block shin oscar is now evident. DOCTOR: Altaf Nevarez Interpretating Date/Time 07/15/2017 18:50:25
== END 2017-07-15 14:19 | disposition home or self-care (01) ==
LOC: PHED 11:22
DX: I48.91 Unspecified atrial fibrillation (principal); I50.9 Heart failure, unspecified; R94.31 Abnormal electrocardiogram [ECG] [EKG]; I10 Essential (primary) hypertension; E11.9 Type 2 diabetes mellitus without complications; C91.10 Chronic lymphocytic leukemia of B-cell type not having achieved remission; E07.9 Disorder of thyroid, unspecified; Z79.01 Long term (current) use of anticoagulants; Z86.79 Personal history of other diseases of the circulatory system
CPT/HCPCS: 71010; 80053; 82550; 83880; 84484; 85025; 93005; 96374